=== PATIENT | female | born 1985 | race Caucasian/White ===

== ENCOUNTER 2018-08-13 00:46 | Emergency (ER) | payer MEDICAID, SELFPAY ==
[2018-08-13 00:48] VITALS: BP 149/74; PULSE 90; RESP 16; TEMP 36.5; O2SAT 98
[2018-08-13 01:12] LABS: Bilirubin Small (Negative); Blood Trace-intact (Negative); Clarity Sl Cloudy; Glucose Negative (Negative); Ketones 15 mg/dL (Negative); Leukocyte Esterase Negative (Negative); Nitrite Negative (Negative); Specific Gravity >= 1.030 (1.005-1.025)
[2018-08-13 01:19] LABS: Bacteria Few HPF (Negative); C & S Indicated? No; Casts Negative LPF (Negative); Crystals Few Amorphous HPF (Negative); Epithelial Cells Many HPF (Negative); Mucus Moderate (Negative)
--- NOTE | 2018-08-13 01:39 | W.ED.GENAD ---
Discharge Plan Disposition Patient Disposition: HOME Condition: Good Discharge Details Chief Complaint: Abd Prob Clinical Impression: Upper abdominal pain Reason For Visit: KRISTOFER Primary Care Provider: Syeda Sanches ED Provider: Edwin Villasenor [place] Meds and New Rx's Prescriptions: New sucralfate 1 gram Tablet 1 g PO AC & HS Qty: 40 RF: 0 omeprazole 20 mg Capsule,Delayed Release(Dr/Ec) 20 mg PO DAILY AM Qty: 30 RF: 0 promethazine 25 mg tablet 25 mg PO Q6H PRN (Reason: nausea and vomiting) Qty: 20 RF: 0 Continue bupropion HCl [Wellbutrin SR] 100 mg Tablet Extended Release 12 Hr 100 mg PO BID RF: 0 paroxetine HCl [Paxil] 40 mg Tablet 60 mg PO DAILY RF: 0 cariprazine [Vraylar] 1.5 mg Capsule 1.5 mg PO DAILY RF: 0 Discharge Instructions Instructions: Promethazine (By mouth), Omeprazole (By mouth), Abdominal Pain (ED) Additional Instructions: Your laboratory studies and CAT scan tonight were fine. We will go ahead and treat for possible acid related disease. Take medication as prescribed. Follow-up with primary care next week as planned. Return to emergency department for worsening pain, persistent vomiting, vomiting blood, chest pain, shortness of breath, fainting, persistent fevers. Referrals: Syeda Sanches [Primary Care Provider] - Medical Decision Making Patient examined with female nurse present. Vaginal and rectal exam performed with contract runner. There is no vaginal foreign body, discharge, odor present. Rectal exam reveals heme positive stool but no gross blood and no black stool. Abdomen is tender in the right mid to upper quadrant without guarding or rebound. Urine test is negative. IV established and laboratory studies obtained. Urinalysis sent. CT scan the abdomen pelvis ordered. Patient is hemodynamically stable at this point. We will give her LR and Phenergan and reevaluate once studies have returned. 4:30 - Patient's laboratory studies are essentially normal. Her hemoglobin is normal. Her CT scan is negative. There is no acute pathology noted. Given the patient's complaint of upper abdominal pain, nausea, black stool which is actually brown here and heme positive I am suspecting maybe ulcer disease. She does feel better after Phenergan. We will go ahead and start her on a PPI as well as Carafate. Will discharge home to follow-up with primary care as previously scheduled. Return to ED if worsening pain, vomiting blood, syncope, shortness of breath, chest pain, persistent fevers, other concerns. Medical Records Medical records reviewed: Yes I reviewed the patient's medical records. Lab Data Lab results reviewed: Yes I reviewed the patient's lab results. HPI General Mode of arrival: EMS. Date/Time Provider Initiated Documentation: 08/13/18 00:51. Limitations to Documentation: no limitations. Information obtained by: patient and old records reviewed. HPI Narrative: Patient presents to ED with complaints of abdominal pain and bloody stool. Patient reports a 4-day history of same. She has an appointment to see her doctor next week but pain was worse tonight. She is reporting that originally started as bloody stool and now is black diarrhea. She has nausea and dry heaves. She reports having a fever to 103 this morning. Pain in her abdomen is right-sided and radiates through to the back. She has no chest pain or shortness of breath. She has no urinary symptoms. She has no pelvic pain or vaginal pain but also states that she thinks there may be a tampon retained in her vagina from last week. She has had no discharge or foul smell. She presents by ambulance for evaluation. Related Data Home Medications Medication Instructions Recorded Confirmed bupropion HCl [Wellbutrin SR] 100 mg PO BID 08/13/18 08/13/18 cariprazine [Vraylar] 1.5 mg PO DAILY 08/13/18 08/13/18 omeprazole 20 mg PO DAILY AM #30 cap 08/13/18 paroxetine HCl [Paxil] 60 mg PO DAILY 08/13/18 08/13/18 promethazine 25 mg PO Q6H PRN #20 tab 08/13/18 sucralfate 1 g PO AC & HS #40 tab 08/13/18 Previous Rx's Medication Instructions Recorded omeprazole 20 mg PO DAILY AM #30 cap 08/13/18 promethazine 25 mg PO Q6H PRN #20 tab 08/13/18 sucralfate 1 g PO AC & HS #40 tab 08/13/18 Allergies Allergy/AdvReac Type Severity Reaction Status Date / Time oxycodone [From Percocet] Allergy Severe Anaphylaxsi Unverified 08/13/18 00:55 s General Stated Complaint: Abd Prob JULIÁN: 3 Review of Systems Constitutional Denies chills, Reports fever(s), Denies headache(s) and Reports poor appetite Eyes Denies change in vision and Denies eye discharge ENT Denies otalgia, Denies headache(s), Denies nasal congestion, Denies neck pain and Denies sinus pressure Cardiovascular Denies chest pain, Denies syncope, Denies edema, Denies lightheadedness, Denies palpitations and Denies dyspnea Respiratory Denies cough and Denies dyspnea Gastrointestinal Reports abdominal pain, Reports melena, Reports bloating, Denies coffee ground emesis, Reports diarrhea, Reports nausea, Reports vomiting and Denies hematemesis Genitourinary Denies abnormal vaginal bleeding, Denies hematuria, Denies pelvic pain, Denies flank pain and Denies urinary urgency Musculoskeletal Denies back pain, Denies myalgias, Denies arthralgias, Denies neck pain and Denies numbness Integumentary/Breasts Denies rash Neurologic Denies syncope, Denies headache(s), Denies focal weakness and Denies numbness Endocrine Denies palpitations PFS Medical History Depression (Chronic) PTSD (post-traumatic stress disorder) (Chronic) Social History Smoking/Tobacco Use Status: Current every day Surgical History History of delivery (Inactive) Tubal ligation status (Inactive) Exam Const General: cooperative, comfortable and no acute distress Nutritional Appearance: obese Orientation: alert and oriented x3 HENMT Head: normocephalic and atraumatic Mouth: moist mucous membranes Eyes Sclera: sclerae normal Resp Effort & Inspection: normal respiratory effort Auscultation: clear to auscultation bilaterally Cardio Rate: regular rate Rhythm: regular rhythm Heart Sounds: S1 normal and S2 normal GI Inspection: normal to inspection Palpation: soft, not firm, no guarding and tender in the RUQ; Abrams's sign negative Rectal Exam - female: visual inspection normal, normal sphincter tone and heme positive stool External Female Exam: external appearance normal Speculum Exam - Vagina: normal appearance of the vagina and no foreign bodies OB/External & Speculum: no foreign bodies Skin Lesions: lesion noted (scabs noted on arms) Rashes: no rashes Neuro General: alert, oriented x3, no focal motor deficits and CN's II-XI intact bilaterally Extrem General: normal to inspection and full ROM Psych Appearance: grossly normal Mental Status: mental status grossly normal Speech and Movement: speech and movement normal Affect: blunted Attitude: cooperative Thought Process: normal Course Vital Signs Temperature 97.7 F 08/13/18 00:48 Pulse 90 08/13/18 00:48 Respiratory Rate 16 08/13/18 00:48 Blood Pressure 149/74 H 08/13/18 00:48 Pulse Oximetry 98 08/13/18 00:48 Temperature 97.7 F 08/13/18 00:48 Temperature Source Skin 08/13/18 00:48 Pulse 90 08/13/18 00:48 Respiratory Rate 16 08/13/18 00:48 Respiratory Effort 08/13/18 00:53 Blood Pressure 149/74 H 08/13/18 00:48 Blood Pressure Position Sitting 08/13/18 00:48 Pulse Oximetry 98 08/13/18 00:48 Oxygen Delivery Method Room Air 08/13/18 00:48 Oxygen Flow Rate 0 08/13/18 00:48 Pain Level 7 08/13/18 00:59 Lab/Test Results Lab/Test Results: Laboratory Tests Range/Units 08/13/18 01:10 Urine Color (Yellow) Yellow Urine Clarity Sl cloudy Urine pH (5-8) 6.0 Ur Specific [place] (1.005-1.025) >= 1.030 H Urine Protein (Negative) mg/dL 30 H Urine Ketones (Negative) mg/dL 15 H Urine Blood (Negative) Trace-intact H Urine Nitrite (Negative) Negative Urine Bilirubin (Negative) Small H Urine Urobilinogen (Up TO 0.2) EU/dL 1.0 H Ur Leukocyte Esterase (Negative) Negative Urine RBC (0-2) 3-5 H Urine WBC (0-5) HPF 3-5 Ur Epithelial Cells (Negative) HPF Many Urine Crystals (Negative) HPF Few amorphous Urine Bacteria (Negative) HPF Few Urine Casts (Negative) LPF Negative Urine Mucus (Negative) Moderate Ur Culture Indicated? No Urine Glucose (Negative) mg/dL Negative POC- Test(urine) Negative
[2018-08-13] MEDS: Omnipaque 350 MG/ML 100 ML BTL IJ (01:52)
[2018-08-13 01:58] LABS: Abs Immature Grans 0.06 k/cumm (0.0-0.09); Absolute Basophil Count 0.03 k/cumm (0.0-0.2); Absolute Eosinophil Count 0.18 k/cumm (0.0-0.7); Absolute Lymphocyte Count 2.26 k/cumm (1.2-3.4); Absolute Monocyte Count 0.93 k/cumm (0.11-0.7); Absolute Neutrophil Count 4.29 k/cumm (1.2-6.7); Basophils % 0.4; Eosinophils % 2.3; HCT 38.2 % (36.0-46.0); HGB 13.1 g/dL (12.0-15.5); Immature Grans % 0.8; Lymphocytes % 29.2; Mean Corp. HGB Concentration 34.3 g/dL (32.0-36.0); Mean Corpuscular Hemoglobin 31.4 pg (27.0-33.0); Mean Corpuscular Volume 91.6 fL (80-95); Mean Platelet Volume 10.6 fL (8.0-11.0); Neutrophils % 55.3; Platelet Count 219 x1000/uL (130-400); RBC 4.17 m/cumm (4.00-5.20); RBC Distribution Width 14.9 % (11.7-14.6); White Blood Cell Count 7.75 k/cumm (4.4-10.8)
[2018-08-13] MEDS: Lactated Ringers 1,000 ML 1000 ML IV (01:58)
--- NOTE | 2018-08-13 02:00 | ED.GENADUL_ITS ---
Discharge Plan Disposition Patient Disposition: HOME Condition: Good Discharge Details Chief Complaint: Abd Prob Clinical Impression: Upper abdominal pain Reason For Visit: KRISTOFER Primary Care Provider: Syeda Sanches ED Provider: Edwin Villasenor [place] Meds and New Rx's Prescriptions: New sucralfate 1 gram Tablet 1 g PO AC & HS Qty: 40 RF: 0 omeprazole 20 mg Capsule,Delayed Release(Dr/Ec) 20 mg PO DAILY AM Qty: 30 RF: 0 promethazine 25 mg tablet 25 mg PO Q6H PRN (Reason: nausea and vomiting) Qty: 20 RF: 0 Continue bupropion HCl [Wellbutrin SR] 100 mg Tablet Extended Release 12 Hr 100 mg PO BID RF: 0 paroxetine HCl [Paxil] 40 mg Tablet 60 mg PO DAILY RF: 0 cariprazine [Vraylar] 1.5 mg Capsule 1.5 mg PO DAILY RF: 0 Discharge Instructions Instructions: Promethazine (By mouth), Omeprazole (By mouth), Abdominal Pain ( ED) Additional Instructions: Your laboratory studies and CAT scan tonight were fine. We will go ahead and treat for possible acid related disease. Take medication as prescribed. Follow -up with primary care next week as planned. Return to emergency department for worsening pain, persistent vomiting, vomiting blood, chest pain, shortness of breath, fainting, persistent fevers. Referrals: Syeda Sanches [Primary Care Provider] - Medical Decision Making Patient examined with female nurse present. Vaginal and rectal exam performed with director of marketing [employer]. There is no vaginal foreign body, discharge, odor present. Rectal exam reveals heme positive stool but no gross blood and no black stool. Abdomen is tender in the right mid to upper quadrant without guarding or rebound. Urine test is negative. IV established and laboratory studies obtained. Urinalysis sent. CT scan the abdomen pelvis ordered. Patient is hemodynamically stable at this point. We will give her LR and Phenergan and reevaluate once studies have returned. 4:30 - Patient's laboratory studies are essentially normal. Her hemoglobin is normal. Her CT scan is negative. There is no acute pathology noted. Given the patient's complaint of upper abdominal pain, nausea, black stool which is actually brown here and heme positive I am suspecting maybe ulcer disease. She does feel better after Phenergan. We will go ahead and start her on a PPI as well as Carafate. Will discharge home to follow-up with primary care as previously scheduled. Return to ED if worsening pain, vomiting blood, syncope, shortness of breath, chest pain, persistent fevers, other concerns. Medical Records Medical records reviewed: Yes I reviewed the patient's medical records. Lab Data Lab results reviewed: Yes I reviewed the patient's lab results. HPI General Mode of arrival: EMS . Date/Time Provider Initiated Documentation: 08/13/18 00:51 . Limitations to Documentation: no limitations . Information obtained by: patient and old records reviewed . HPI Narrative: Patient presents to ED with complaints of abdominal pain and bloody stool. Patient reports a 4-day history of same. She has an appointment to see her doctor next week but pain was worse tonight. She is reporting that originally started as bloody stool and now is black diarrhea. She has nausea and dry heaves. She reports having a fever to 103 this morning. Pain in her abdomen is right-sided and radiates through to the back. She has no chest pain or shortness of breath. She has no urinary symptoms. She has no pelvic pain or vaginal pain but also states that she thinks there may be a tampon retained in her vagina from last week. She has had no discharge or foul smell. She presents by ambulance for evaluation. Related Data Home Medications Medication Instructions Recorded Confirmed bupropion HCl [Wellbutrin SR] 100 mg PO BID 08/13/18 08/13/18 cariprazine [Vraylar] 1.5 mg PO DAILY 08/13/18 08/13/18 omeprazole 20 mg PO DAILY AM #30 cap 08/13/18 paroxetine HCl [Paxil] 60 mg PO DAILY 08/13/18 08/13/18 promethazine 25 mg PO Q6H PRN #20 tab 08/13/18 sucralfate 1 g PO AC & HS #40 tab 08/13/18 Previous Rx's Medication Instructions Recorded omeprazole 20 mg PO DAILY AM #30 cap 08/13/18 promethazine 25 mg PO Q6H PRN #20 tab 08/13/18 sucralfate 1 g PO AC & HS #40 tab 08/13/18 Allergies Allergy/AdvReac Type Severity Reaction Status Date / Time oxycodone [From Percocet] Allergy Severe Anaphylaxsi Unverified 08/13/18 00:55 s General Stated Complaint: Abd Prob JULIÁN: 3 Review of Systems Constitutional Denies chills, Reports fever(s), Denies headache(s) and Reports poor appetite Eyes Denies change in vision and Denies eye discharge ENT Denies otalgia, Denies headache(s), Denies nasal congestion, Denies neck pain and Denies sinus pressure Cardiovascular Denies chest pain, Denies syncope, Denies edema, Denies lightheadedness, Denies palpitations and Denies dyspnea Respiratory Denies cough and Denies dyspnea Gastrointestinal Reports abdominal pain, Reports melena, Reports bloating, Denies coffee ground emesis, Reports diarrhea, Reports nausea, Reports vomiting and Denies hematemesis Genitourinary Denies abnormal vaginal bleeding, Denies hematuria, Denies pelvic pain, Denies flank pain and Denies urinary urgency Musculoskeletal Denies back pain, Denies myalgias, Denies arthralgias, Denies neck pain and Denies numbness Integumentary/Breasts Denies rash Neurologic Denies syncope, Denies headache(s), Denies focal weakness and Denies numbness Endocrine Denies palpitations PFS Medical History Depression (Chronic) PTSD (post-traumatic stress disorder) (Chronic) Social History Smoking/Tobacco Use Status: Current every day Surgical History History of delivery (Inactive) Tubal ligation status (Inactive) Exam Const General: cooperative, comfortable and no acute distress Nutritional Appearance: obese Orientation: alert and oriented x3 HENMT Head: normocephalic and atraumatic Mouth: moist mucous membranes Eyes Sclera: sclerae normal Resp Effort & Inspection: normal respiratory effort Auscultation: clear to auscultation bilaterally Cardio Rate: regular rate Rhythm: regular rhythm Heart Sounds: S1 normal and S2 normal GI Inspection: normal to inspection Palpation: soft, not firm, no guarding and tender in the RUQ; Abrams's sign negative Rectal Exam - female: visual inspection normal, normal sphincter tone and heme positive stool External Female Exam: external appearance normal Speculum Exam - Vagina: normal appearance of the vagina and no foreign bodies OB/External & Speculum: no foreign bodies Skin Lesions: lesion noted (scabs noted on arms) Rashes: no rashes Neuro General: alert, oriented x3, no focal motor deficits and CN's II-XI intact bilaterally Extrem General: normal to inspection and full ROM Psych Appearance: grossly normal Mental Status: mental status grossly normal Speech and Movement: speech and movement normal Affect: blunted Attitude: cooperative Thought Process: normal Course Vital Signs Temperature 97.7 F 08/13/18 00:48 Pulse 90 08/13/18 00:48 Respiratory Rate 16 08/13/18 00:48 Blood Pressure 149/74 H 08/13/18 00:48 Pulse Oximetry 98 08/13/18 00:48 Temperature 97.7 F 08/13/18 00:48 Temperature Source Skin 08/13/18 00:48 Pulse 90 08/13/18 00:48 Respiratory Rate 16 08/13/18 00:48 Respiratory Effort 08/13/18 00:53 Blood Pressure 149/74 H 08/13/18 00:48 Blood Pressure Position Sitting 08/13/18 00:48 Pulse Oximetry 98 08/13/18 00:48 Oxygen Delivery Method Room Air 08/13/18 00:48 Oxygen Flow Rate 0 08/13/18 00:48 Pain Level 7 08/13/18 00:59 Lab/Test Results Lab/Test Results: Laboratory Tests Range/Units 08/13/18 01:10 Urine Color (Yellow) Yellow Urine Clarity Sl cloudy Urine pH (5-8) 6.0 Ur Specific [place] (1.005-1.025) >= 1.030 H Urine Protein (Negative) mg/dL 30 H Urine Ketones (Negative) mg/dL 15 H Urine Blood (Negative) Trace-intact H Urine Nitrite (Negative) Negative Urine Bilirubin (Negative) Small H Urine Urobilinogen (Up TO 0.2) EU/dL 1.0 H Ur Leukocyte Esterase (Negative) Negative Urine RBC (0-2) 3-5 H Urine WBC (0-5) HPF 3-5 Ur Epithelial Cells (Negative) HPF Many Urine Crystals (Negative) HPF Few amorphous Urine Bacteria (Negative) HPF Few Urine Casts (Negative) LPF Negative Urine Mucus (Negative) Moderate Ur Culture Indicated? No Urine Glucose (Negative) mg/dL Negative POC- Test(urine) Negative
[2018-08-13 02:09] LABS: ALT 67 U/L (12-78); AST 32 U/L (15-37); Albumin 3.5 g/dL (3.4-5.0); Alkaline Phosphatase 95 U/L (46-116); Anion Gap 10.5 mmol/L (3-11); BUN 6 mg/dL (7-18); Bilirubin, Total 0.2 mg/dL (0.2-1.0); CO2 26.5 mmol/L (21.0-32.0); CREATININE 0.74 mg/dL (0.55-1.02); Calcium 8.3 mg/dL (8.5-10.1); Chloride 104 mmol/L (98-107); Glucose 142 mg/dL (70-100); Lipase 107 U/L (73-393); Potassium 3.6 mmol/L (3.5-5.1); Sodium 141 mmol/L (136-145); Total Protein 7.4 g/dL (6.4-8.2)
[2018-08-13] MEDS: Omnipaque 350 MG/ML 50 ML BTL IJ (02:45)
--- NOTE | 2018-08-13 02:45 | DI.CT_ITS ---
SYMPTOM/DIAGNOSIS: RIGHT SIDED ABD PAIN WITH BLACK STOOL ABDOMINAL AND PELVIC CT: 08/13 CT examination of the abdomen and pelvis was performed with a bolus infusion of 125 cc Omnipaque 350 Images obtained through the lung bases are unremarkable. There appears to be mild hepatic steatosis. No focal hepatic or splenic abnormality seen. Gallbladder and bile ducts are CT normal. Pancreas is unremarkable in appearance. Adrenals and kidneys appear normal. Abdominal aorta is of normal diameter and no major vascular abnormality seen. No significant abdominal wall hernia seen. No evidence of appendicitis or diverticulitis. No free fluid identified in the pelvis. No abdominal or pelvic adenopathy seen. Presumed 2 cm in diameter right ovarian cyst or dominant follicle noted. CONCLUSION: No evidence of acute intra-abdominal process.
--- NOTE | 2018-08-13 04:06 | DI.VRAD_ITS ---
EXAM: CT Abdomen and Pelvis With Intravenous Contrast CLINICAL HISTORY: 32 years old, female; Pain and signs and symptoms; Vomiting; Abdominal pain; Localized; Right lower quadrant (rlq); Prior surgery; Surgery date: 6+ months; Surgery type: 3 c sections; Patient HX: Rlq and r flank pain, vomiting, diarrhea for 4 or 5 days TECHNIQUE: Axial computed tomography images of the abdomen and pelvis with intravenous contrast. All CT scans at this facility use at least one of these dose optimization techniques: automated exposure control; mA and/or kV adjustment per patient size (includes targeted exams where dose is matched to clinical indication); or iterative reconstruction. Coronal and sagittal reformatted images were created and reviewed. CONTRAST: 125 mL of Omnipaque 350 administered intravenously. COMPARISON: CT ABD PELVIS WITH CONTRAST 01/04/2018 11:55 PM FINDINGS: Lung bases: Unremarkable. No mass. No consolidation. ABDOMEN: Liver: Hepatic steatosis. Gallbladder and bile ducts: Unremarkable. No calcified stones. No ductal dilation. Pancreas: Unremarkable. No mass. No ductal dilation. Spleen: Unremarkable. No splenomegaly. Adrenals: Unremarkable. No mass. Kidneys and ureters: Unremarkable. No solid mass. No hydronephrosis. Stomach and bowel: Unremarkable. No obstruction. No mucosal thickening. PELVIS: Appendix: No findings to suggest acute appendicitis. Bladder: Unremarkable. No mass. Reproductive: Unremarkable as visualized. ABDOMEN and PELVIS: Intraperitoneal space: Unremarkable. No free air. No significant fluid collection. Bones/joints: No acute fracture. No dislocation. Soft tissues: Unremarkable. Vasculature: Unremarkable. No abdominal aortic aneurysm. Lymph nodes: Unremarkable. No enlarged lymph nodes. IMPRESSION: No acute findings. Dictated and Authenticated by: Roc Anthony MD. Ordering:PADMINI JAIMES MD
[2018-08-13 04:51] VITALS: BP 131/66; PULSE 81; RESP 16; TEMP 36.6; O2SAT 97
== END 2018-08-13 04:46 | disposition home or self-care (01) ==
LOC: ER 04:50
PROVIDERS: Emergency Provider Emergency Medicine; PCP Nurse Practitioner Family
DX: R10.11 Right upper quadrant pain (principal); R19.5 Other fecal abnormalities
CPT/HCPCS: 80053; 81025; 83690; 96365; 96368; 99285; 74177; 81003; 81015; 85025; J3490; Q9967

== ENCOUNTER 2018-08-17 19:57 | Outpatient (REF) | payer MEDICAID, SELFPAY ==
[2018-08-17 20:33] LABS: Anion Gap 11.4 mmol/L (3-11); BUN 9 mg/dL (7-18); CO2 23.6 mmol/L (21.0-32.0); CREATININE 0.65 mg/dL (0.55-1.02); Chloride 105 mmol/L (98-107); Glucose 116 mg/dL (70-100); Potassium 4.3 mmol/L (3.5-5.1); Sodium 140 mmol/L (136-145)
== END 2018-08-17 20:17 ==
LOC: NCHCN 19:57
PROVIDERS: PCP Nurse Practitioner Family; Visit Provider Nurse Practitioner Family
DX: R11.2 Nausea with vomiting, unspecified (principal); R19.7 Diarrhea, unspecified
CPT/HCPCS: 80048

== ENCOUNTER 2018-08-19 13:51 | Outpatient (REF) | payer MEDICAID, SELFPAY ==
[2018-08-20 11:37] LABS: Campylobacter PCR SEE COMMENTS; Salmonella PCR SEE COMMENTS; Shiga Toxin PCR SEE COMMENTS; Shigella/Enteroinvasive Ecoli SEE COMMENTS
== END 2018-08-19 14:11 ==
LOC: NCHCN 13:51
PROVIDERS: PCP Nurse Practitioner Family; Visit Provider Nurse Practitioner Family
DX: R19.7 Diarrhea, unspecified (principal)
CPT/HCPCS: 87329; 87505; 82272; 83630; 87177; 87324

== ENCOUNTER 2018-08-26 16:34 | Emergency (ER) | payer MEDICAID, SELFPAY ==
[2018-08-26 16:43] VITALS: BP 136/92; PULSE 84; RESP 18; TEMP 36.6; O2SAT 97
--- NOTE | 2018-08-26 16:51 | DI.RAD_ITS ---
SYMPTOM/DIAGNOSIS: PAIN, S/P FALL LEFT ANKLE: Three views were obtained. No fracture is seen.
--- NOTE | 2018-08-26 16:58 | ED.GENADUL_ITS ---
Discharge Plan Disposition Patient Disposition: HOME Condition: Good Discharge Details Chief Complaint: Orthopedic Clinical Impression: Left ankle sprain Primary Care Provider: Syeda Sanches ED Provider: Roc Chance Home Meds and New Rx's Prescriptions: Continue bupropion HCl [Wellbutrin SR] 100 mg Tablet Extended Release 12 Hr 100 mg PO BID RF: 0 paroxetine HCl [Paxil] 40 mg Tablet 60 mg PO DAILY RF: 0 cariprazine [Vraylar] 1.5 mg Capsule 1.5 mg PO DAILY RF: 0 sucralfate 1 gram Tablet 1 g PO AC & HS Qty: 40 RF: 0 omeprazole 20 mg Capsule,Delayed Release(Dr/Ec) 20 mg PO DAILY AM Qty: 30 RF: 0 Discharge Instructions Instructions: Ankle Sprain (ED) Discharge Data Discharge Physician: Roc Chance Medical Decision Making Pt was playing soccer just prior to arrival and inverted ankle, no head trauma or loc. Based on exam is either sprain or fx, will xray. No pain over the foot to suggest lisfranc injury xray negative, will treat as sprain. Advised f/u with pcp and return precautions given Differential Diagnosis sprain, fx Imaging Data Radiologic Study: Attestation: I personally reviewed and interpreted this imaging study as follows: Imaging: X-Ray My impression: No acute finding Radiologist's impression: no acute findings HPI General Mode of arrival: ambulatory . Date/Time Provider Initiated Documentation: 08/26/18 16:43 . Limitations to Documentation: no limitations . Information obtained by: patient . History of Present Illness 32 year old F presents to the emergency department with the chief complaint of left ankle pain, described as moderate, with intensity rated at 6. Patient reports no radiation. Patient started experiencing this hour(s) (1) and it has been constant. Rest improves symptom(s), Movement worsens symptoms . Patient notes no other symptoms.. Patient did receive the following treatments prior to arrival, none Related Data Home Medications Medication Instructions Recorded Confirmed bupropion HCl [Wellbutrin SR] 100 mg PO BID 08/13/18 08/26/18 cariprazine [Vraylar] 1.5 mg PO DAILY 08/13/18 08/26/18 omeprazole 20 mg PO DAILY AM #30 cap 08/13/18 08/26/18 paroxetine HCl [Paxil] 60 mg PO DAILY 08/13/18 08/26/18 sucralfate 1 g PO AC & HS #40 tab 08/13/18 08/26/18 Previous Rx's Medication Instructions Recorded omeprazole 20 mg PO DAILY AM #30 cap 08/13/18 sucralfate 1 g PO AC & HS #40 tab 08/13/18 Allergies Allergy/AdvReac Type Severity Reaction Status Date / Time oxycodone [From Percocet] Allergy Severe Anaphylaxsi Unverified 08/26/18 16:48 s General Stated Complaint: Orthopedic JULIÁN: 4 Review of Systems Review of Systems All systems reviewed & are unremarkable except as noted in HPI and below Constitutional Denies chills, Denies fever(s) and Denies weakness Eyes Denies loss of vision ENT Denies change in voice Cardiovascular Denies chest pain and Denies dyspnea Respiratory Denies dyspnea Gastrointestinal Denies abdominal pain, Denies nausea and Denies vomiting Genitourinary Denies dysuria Musculoskeletal Denies joint swelling Integumentary/Breasts Denies rash Neurologic Denies loss of vision and Denies weakness Psychiatric Denies depression Endocrine Denies cold intolerance and Denies heat intolerance Allergic/Immunologic Reports urticaria PFSH Medical History Depression (Chronic) PTSD (post-traumatic stress disorder) (Chronic) Social History Smoking/Tobacco Use Status: Current every day Surgical History History of delivery (Inactive) Tubal ligation status (Inactive) Exam Const General: no acute distress Orientation: alert [facility] Head: normal to inspection Ears: external ears normal General nose exam: external nose normal Mouth: moist mucous membranes Eyes General: appearance normal, both eyes and all related structures Neck Neck: normal visual inspection Resp Effort & Inspection: normal respiratory effort and able to speak in complete sentences Cardio Rate: regular rate Skin General skin exam: no rashes or lesions noted Neuro General: alert and oriented x3 Extrem General: full ROM, normal capillary refill and other (lateral left ankle swelling and pain, limited rom due to pain, full rom of the left knee and hip without pain) Psych Mental Status: mental status grossly normal Course Vital Signs Temperature 36.6 C 08/26/18 16:43 Pulse 84 08/26/18 16:43 Respiratory Rate 18 08/26/18 16:43 Blood Pressure 136/92 H 08/26/18 16:43 Pulse Oximetry 97 08/26/18 16:43 Temperature 36.6 C 08/26/18 16:43 Temperature Source Temporal Artery Scan 08/26/18 16:43 Pulse 84 08/26/18 16:43 Respiratory Rate 18 08/26/18 16:43 Respiratory Effort Non-Labored 08/26/18 16:46 Blood Pressure 136/92 H 08/26/18 16:43 Blood Pressure Position Supine 08/26/18 16:43 Pulse Oximetry 97 08/26/18 16:43 Oxygen Delivery Method Room Air 08/26/18 16:43 Oxygen Flow Rate 0 08/26/18 16:43 Pain Level 10 08/26/18 16:50
[2018-08-26] MEDS: Ibuprofen 600 MG TAB PO (17:04)
--- NOTE | 2018-08-26 17:22 | DI.VRAD_ITS ---
EXAM: XR Left Ankle Complete, 3 or More Views CLINICAL HISTORY: 32 years old, female; Pain; Ankle; Left; Patient HX: Pain S/P fall TECHNIQUE: Frontal, lateral and oblique views of the left ankle. COMPARISON: CR LEFT ANKLE COMPLETE 11/07/2017 4:14 PM FINDINGS: The bony structures are in anatomic alignment. No fracture is present. No radiopaque foreign body is identified. The joint spaces are well maintained. IMPRESSION: No evidence of acute bony abnormality. Dictated and Authenticated by: Moris Ramirez MD. Ordering:RITESH SCHWARTZ MD
== END 2018-08-26 18:05 | disposition home or self-care (01) ==
PROVIDERS: Emergency Provider Emergency Medicine; PCP Nurse Practitioner Family
DX: S93.402A Sprain of unspecified ligament of left ankle, initial encounter (principal); X50.9XXA Other and unspecified overexertion or strenuous movements or postures, initial encounter; Y93.66 Activity, soccer
CPT/HCPCS: 29515; 99283; 73610; E0114; L1902

== ENCOUNTER 2018-09-15 16:43 | Emergency (ER) | payer MEDICAID, SELFPAY ==
[2018-09-15] VITALS (34 sets, daily range): BP systolic 107–145; BP diastolic 40–123; PULSE 69–87; RESP 10–25; TEMP 37.2; O2SAT 89–99
[2018-09-15] MEDS: Ondansetron O.D.T. 4 MG TABEF (17:09)
[2018-09-15 17:58] LABS: Abs Immature Grans 0.03 k/cumm (0.0-0.09); Absolute Basophil Count 0.04 k/cumm (0.0-0.2); Absolute Eosinophil Count 0.16 k/cumm (0.0-0.7); Absolute Lymphocyte Count 2.72 k/cumm (1.2-3.4); Absolute Monocyte Count 0.92 k/cumm (0.11-0.7); Absolute Neutrophil Count 5.62 k/cumm (1.2-6.7); Basophils % 0.4; Eosinophils % 1.7; HCT 37.4 % (36.0-46.0); HGB 13.2 g/dL (12.0-15.5); Immature Grans % 0.3; Lymphocytes % 28.7; Mean Corp. HGB Concentration 35.3 g/dL (32.0-36.0); Mean Corpuscular Hemoglobin 31.5 pg (27.0-33.0); Mean Corpuscular Volume 89.3 fL (80-95); Mean Platelet Volume 10.1 fL (8.0-11.0); Monocytes % 9.7; Neutrophils % 59.2; Platelet Count 228 x1000/uL (130-400); RBC 4.19 m/cumm (4.00-5.20); RBC Distribution Width 13.7 % (11.7-14.6); White Blood Cell Count 9.49 k/cumm (4.4-10.8)
--- NOTE | 2018-09-15 18:02 | DI.RAD_ITS ---
SYMPTOM/DIAGNOSIS: CHEST PAIN PORTABLE AP CHEST: Comparison is made with 01/21/18. The heart is normal in size. The lungs are clear. The mediastinal structures and pleura appear intact. CONCLUSION: Normal chest.
[2018-09-15 18:14] LABS: ALT 71 U/L (12-78); AST 45 U/L (15-37); Albumin 3.7 g/dL (3.4-5.0); Alkaline Phosphatase 88 U/L (46-116); Anion Gap 7.6 mmol/L (3-11); BUN 8 mg/dL (7-18); Bilirubin, Total 0.3 mg/dL (0.2-1.0); CO2 27.4 mmol/L (21.0-32.0); CREATININE 0.71 mg/dL (0.55-1.02); Calcium 8.5 mg/dL (8.5-10.1); Chloride 102 mmol/L (98-107); Glucose 90 mg/dL (70-100); Potassium 3.7 mmol/L (3.5-5.1); Sodium 137 mmol/L (136-145); Total Protein 7.4 g/dL (6.4-8.2); Troponin I < 0.02 ng/mL (0.00-0.06)
--- NOTE | 2018-09-15 18:15 | DI.VRAD_ITS ---
EXAM: XR Chest, 1 View EXAM DATE/TIME: 09/15/2018 5:27 PM CLINICAL HISTORY: 32 years old, female; Pain; Chest pain; Other: Sternal; Patient HX: Mid sternal chest pain, since today. With difficulty breathing. TECHNIQUE: XR of the chest, 1 view. COMPARISON: CR CHEST 2 VIEWS PA,LAT 01/21/2018 5:48 PM FINDINGS: The cardiomediastinal silhouette and pulmonary vasculature are within normal limits. The lungs are clear. No pleural effusion or pneumothorax is identified. IMPRESSION: No acute process. Dictated and Authenticated by: Mario Powell MD. Ordering:EUSEBIA JOSE MD
[2018-09-15 18:42] LABS: Prothrombin Time 10.1 sec (9.3-10.8)
[2018-09-15] MEDS: HYDROmorphone 2 MG/ML VIAL 1 MG IVP (18:59)
[2018-09-15] MEDS: Normal Saline Flush 10 ML SYR IVP ×2 (19:00→20:14)
[2018-09-15 19:04] LABS: D-Dimer 342 ng/mlFEU (<500)
--- NOTE | 2018-09-15 19:15 | DI.CT_ITS ---
SYMPTOM/DIAGNOSIS: CHEST PAIN PE CHEST CT: CT angiography was performed with multi slice acquisition and multi planar and 3D reconstruction. CT scan of the chest was performed according to the pulmonary embolus protocol. Comparison is made with 01/22/18. There is slight patient motion artifact present. There is no evidence of a pulmonary embolus. The thoracic aorta is of normal caliber. No aneurysm or dissection. Heart size is within normal limits. No significant pericardial effusion. No evidence of right ventricular dysfunction is present. There is no significant mediastinal or hilar adenopathy. There is stable soft tissue in the anterior mediastinum, likely reflecting residual thymus. No pleural effusion or pneumothorax is identified. There are linear opacities in the right middle lobe, left lingula and lower lobes. These findings may reflect atelectasis or scarring. No focal consolidating infiltrates are seen. The tracheobronchial tree is unremarkable. The upper abdominal images show diffuse decreased attenuation of the liver consistent with fatty infiltration. Degenerative changes are seen in the spine. IMPRESSION: No evidence of a pulmonary embolism, thoracic aortic dissection or aneurysm. Fatty infiltration of the liver.
[2018-09-15] MEDS: Omnipaque 350 MG/ML 100 ML BTL IJ (19:18)
--- NOTE | 2018-09-15 19:46 | ED.GENADUL_ITS ---
Discharge Plan Disposition Patient Disposition: HOME Condition: Good Discharge Details Chief Complaint: Chest Pain Clinical Impression: Chest pain Primary Care Provider: Syeda Sanches ED Provider: Edwin Villasenor [place] Meds and New Rx's Prescriptions: New ibuprofen 600 mg tablet 600 mg PO TID Qty: 15 RF: 0 ondansetron 4 mg tablet,disintegrating 4 mg PO QID PRN (Reason: nausea and vomiting) Qty: 7 RF: 0 Continue bupropion HCl [Wellbutrin SR] 100 mg Tablet Extended Release 12 Hr 100 mg PO BID RF: 0 paroxetine HCl [Paxil] 40 mg Tablet 60 mg PO DAILY RF: 0 cariprazine [Vraylar] 1.5 mg Capsule 3 mg PO DAILY RF: 0 No Action acetaminophen [Mapap Extra Strength] 500 MG tablet 1,000 mg PO Q6H 5 Days Qty: 60 RF: 0 ibuprofen [Motrin IB] 200 MG tablet 600 mg PO Q6H 5 Days Qty: 60 RF: 0 Discharge Instructions Instructions: Chest Pain (ED) Additional Instructions: Workup for chest pain tonight was negative. Your EKG and cardiac enzymes are normal. Your chest x-ray and chest CT scan are negative for pathology. We think your chest pain is either chest wall pain or pleurisy. Either is treated with nonsteroidals which we will start you on. We will give you ondansetron for nausea/vomiting if needed. Follow-up with primary care tomorrow as planned. Return to ED if high fever, worsening/new chest pain, increasing shortness of breath. Referrals: Syeda Sanches [Primary Care Provider] - Discharge Data Discharge Date/Time-TO BE ENTERED AT DEPARTURE: 09/15/18 21:16 Medical Decision Making <Lan Alaniz MD - Last Filed: 09/24/18 01:21> 19:00 -- 32yo f with history of anixety and depression here with chest pain that started fairly suddenly about an hour prior to arrival. Hypertensive on arrival. Lungs clear to auscultation bilaterally. Saturating well in no respiratory distress. ECG reviewed and interpreted by me: Normal sinus rhythm 93 bpm, normal axis, no STEMI, nondiagnostic. Portable chest x-ray reviewed and interpreted by radiology: The cardia mediastinal silhouette and pulmonary vasculature are within normal limits. The lungs are clear. No pleural effusion or pneumothorax is identified. Patient had difficult IV access and multiple failed attempts by nursing and myself with ultrasound guidance. IV was eventually established in her right forearm. Patient does have tenderness along her sternum and parasternally that reproduces her pain. Consider muscular skeletal etiology including costochondritis. Labs reviewed and nondiagnostic. Negative troponin. Negative d-dimer. Patient continues to have pain despite Dilaudid 1 mg IV. Plan is to CT chest to rule out pulmonary embolism, pneumothorax not apparent on chest x-ray or other significant pathology. Patient has remained hemodynamically stable here in the emergency department. Blood pressure improved 20:00 -- CT chest interpreted by radiology: No pulmonary embolism identified. Aorta is normal with no aortic aneurysm and no aortic dissection. Minimal linear atelectasis and/or scar in the right middle lobe, lingula and left lower lobe. No pulmonary consolidation. Diffuse fatty infiltration of the liver. Patient reassessed and complaining of some more nausea. I will give a dose of Zofran IV Care signed out to Dr. Villasenor. Plan to follow-up on delta trop. Reassess pt. HPI <Lan Alaniz MD - Last Filed: 09/24/18 01:21> General Mode of arrival: EMS . Date/Time Provider Initiated Documentation: 09/15/18 16:44 . Limitations to Documentation: no limitations . Information obtained by: patient and EMS . HPI Narrative: 32-year-old female with history of depression presents with chief complaint of chest pain. Patient notes that chest pain started about 1 hour prior to arrival. Pain is moderate to severe currently rated 7/10. Pain is localized to right upper chest and neck. Pain started in her left upper chest and has migrated. Pain is persistent. Pain is worse with deep inspiration. No associated leg swelling or calf pain. No recent immobility or surgery. She does note that she has had recent pneumonia. Related Data Home Medications Medication Instructions Recorded Confirmed bupropion HCl [Wellbutrin SR] 100 mg PO BID 08/13/18 09/21/18 cariprazine [Vraylar] 3 mg PO DAILY 08/13/18 09/21/18 paroxetine HCl [Paxil] 60 mg PO DAILY 08/13/18 09/21/18 ibuprofen 600 mg PO TID #15 tab 09/15/18 09/21/18 ondansetron 4 mg PO QID PRN #7 tab 09/15/18 09/21/18 acetaminophen [Mapap Extra 1,000 mg PO Q6H 5 Days #60 tab 09/21/18 Strength] ibuprofen [Motrin Ib] 600 mg PO Q6H 5 Days #60 tab 09/21/18 Previous Rx's Medication Instructions Recorded ibuprofen 600 mg PO TID #15 tab 09/15/18 ondansetron 4 mg PO QID PRN #7 tab 09/15/18 acetaminophen [Mapap Extra 1,000 mg PO Q6H 5 Days #60 tab 09/21/18 Strength] ibuprofen [Motrin Ib] 600 mg PO Q6H 5 Days #60 tab 09/21/18 Allergies Allergy/AdvReac Type Severity Reaction Status Date / Time oxycodone [From Percocet] Allergy Severe Anaphylaxsi Unverified 09/21/18 05:14 s General Stated Complaint: Chest Pain JULIÁN: 3 Review of Systems <Lan Alaniz MD - Last Filed: 09/24/18 01:21> Review of Systems All systems reviewed & are unremarkable except as noted in HPI and below Constitutional Denies fever(s) Cardiovascular Reports as per HPI, Reports chest pain, Denies syncope, Denies pedal edema and Denies dyspnea Respiratory Denies dyspnea Gastrointestinal Denies abdominal pain Neurologic Denies syncope Exam <Lan Alaniz MD - Last Filed: 09/24/18 01:21> Const General: cooperative and anxious Orientation: alert [facility] Head: normocephalic Mouth: moist mucous membranes Eyes Conjunctivae: normal conjunctivae Sclera: normal sclerae Neck Neck: trachea midline and supple Chest Chest: tenderness sternum (peristernal) Resp Auscultation: clear to auscultation bilaterally, no rales, no rhonchi and no wheezes Cardio Jugular venous pressure: no JVD Rate: regular rate and not tachycardic Rhythm: regular rhythm Heart Sounds: no gallops, no murmurs and no rubs GI Palpation: soft, not firm, no guarding, no masses, not rigid and nontender Skin General skin exam: no rashes or lesions noted Neuro General: alert, awake, oriented x3 and tone normal Extrem General: no edema Psych Appearance: grossly normal Mental Status: mental status grossly normal Affect: anxious affect Course <Lan Alaniz MD - Last Filed: 09/24/18 01:21> Vital Signs Temperature 37.2 C 09/15/18 16:50 Temperature 37.2 C 09/15/18 16:50 Temperature Source Skin 09/15/18 16:50 Respiratory Effort 09/15/18 17:17 Respiratory Depth Shallow 09/15/18 17:17 Respiratory Pattern Normal 09/15/18 17:17 Pain Level 8 09/15/18 16:50 Sign Out <Lan Alaniz MD - Last Filed: 09/24/18 01:21> Sign Out Data: Sign Out Comment: reassess patient after zofran. follow-up repeat ecg and delta trop. Last updated by Lan Alaniz MD at 09/15/18 20:16 Post-Handoff Eval: Patient signed out to me pending repeat EKG and troponin. Her work up for chest pain had been negative. Her repeat EKG remains normal. Her second troponin is negative. Her pain is pleuritic/chest pain type pain and we will go ahead and treat with NSAIDs. She has follow up with PCP tomorrow already scheduled. Return to ED for high fever, new/worse pain, increase trouble breathing, other concerns.
--- NOTE | 2018-09-15 19:46 | DI.VRAD_ITS ---
EXAM: CT Angiography Chest With Intravenous Contrast EXAM DATE/TIME: 09/15/2018 6:51 PM CLINICAL HISTORY: 32 years old, female; Pain; Chest pain; Other: Mid sternal chest pain; Patient HX: Mid sternal chest pain since this morning, difficulty breathing. No recent surgeries. ; Additional info: Artifact due to patient body habitus. TECHNIQUE: Axial computed tomographic angiography images of the chest with intravenous contrast using CT angiography protocol. All CT scans at this facility use at least one of these dose optimization techniques: automated exposure control; mA and/or kV adjustment per patient size (includes targeted exams where dose is matched to clinical indication); or iterative reconstruction. Coronal and sagittal reformatted images were created and reviewed. MIP reconstructed images were created and reviewed. CONTRAST: 100 ml of omnipaque 350 administered intravenously. COMPARISON: CT CHEST FOR PULMONARY EMBOLUS 01/22/2018 10:30 AM FINDINGS: Limitations: This examination is slightly suboptimal secondary to cardiac motion induced artifact. Pulmonary arteries: No pulmonary embolism identified. Aorta: Normal. No aortic aneurysm. No aortic dissection. Lungs: Minimal linear atelectasis and/or scar in the right middle lobe, lingula and left lower lobe. No pulmonary consolidation. Pleural space: Normal. No pneumothorax. No pleural effusion. Heart: Normal. No cardiomegaly. No pericardial effusion. No evidence of right heart strain. Mediastinum: Soft tissue density within the anterior mediastinum, likely residual thymus. Bones/joints: Unremarkable. No acute fracture. Soft tissues: Unremarkable. Lymph nodes: Unremarkable. No enlarged lymph nodes. Liver: Diffuse fatty infiltration of the liver. IMPRESSION: 1. No pulmonary embolism or other acute abnormality identified. 2. Diffuse fatty infiltration of the liver. Dictated and Authenticated by: Mario Powell MD. Ordering:EUSEBIA JOSE MD
[2018-09-15] MEDS: Ketorolac 15 MG/ML VIAL IVP (20:12)
[2018-09-15] MEDS: Ondansetron 4 MG/2 ML VIAL IVP (20:13)
[2018-09-15 20:51] LABS: Troponin I < 0.02 ng/mL (0.00-0.06)
== END 2018-09-15 21:16 | disposition home or self-care (01) ==
PROVIDERS: Student in an Organized Health Care Education/Training Program; Emergency Provider Emergency Medicine; PCP Nurse Practitioner Family
DX: R07.81 Pleurodynia (principal); F41.8 Other specified anxiety disorders; I10 Essential (primary) hypertension
CPT/HCPCS: 36415; 71275; 80053; 93005; 96374; 96375; 99285; 71045; 83735; 84484; 85025; 85379; 85610; 93010; J1885; J2405; J3490

== ENCOUNTER 2018-09-21 05:08 | Emergency (ER) | payer MEDICAID, SELFPAY ==
[2018-09-21] VITALS (19 sets, daily range): BP systolic 119–166; BP diastolic 74–92; PULSE 80–95; RESP 16–28; TEMP 36.9–37; O2SAT 94–99
--- NOTE | 2018-09-21 05:53 | ED.GENADUL_ITS ---
Discharge Plan Disposition Patient Disposition: HOME Condition: Good Discharge Details Chief Complaint: SOB Clinical Impression: Chest pain Reason For Visit: KRISTOFER Primary Care Provider: Syeda Sanches ED Provider: Tray Jimenez Home Meds and New Rx's Prescriptions: New acetaminophen [Mapap Extra Strength] 500 MG tablet 1,000 mg PO Q6H 5 Days Qty: 60 RF: 0 ibuprofen [Motrin IB] 200 MG tablet 600 mg PO Q6H 5 Days Qty: 60 RF: 0 No Action bupropion HCl [Wellbutrin SR] 100 mg Tablet Extended Release 12 Hr 100 mg PO BID RF: 0 paroxetine HCl [Paxil] 40 mg Tablet 60 mg PO DAILY RF: 0 cariprazine [Vraylar] 1.5 mg Capsule 3 mg PO DAILY RF: 0 ibuprofen 600 mg tablet 600 mg PO TID Qty: 15 RF: 0 ondansetron 4 mg tablet,disintegrating 4 mg PO QID PRN (Reason: nausea and vomiting) Qty: 7 RF: 0 Discharge Instructions Instructions: Chest Pain (ED) Additional Instructions: Please take the Tylenol and Motrin as directed. If you notice any worsening of your symptoms, or any new symptoms such as vomiting, diarrhea, fever, chills, shortness of breath, worsening chest pain, numbness, weakness, or fainting , please return immediately to the emergency department for reevaluation. Please follow up with your primary care provider as soon as possible for reassessment and reevaluation. As always, it was a pleasure participating in your medical care today. Referrals: Syeda Sanches [Primary Care Provider] - Discharge Data Discharge Date/Time-TO BE ENTERED AT DEPARTURE: 09/21/18 12:02 Medical Decision Making <Edwin Villasenor MD - Last Filed: 09/21/18 21:40> Patient returns presenting with pleuritic type chest pain. Seen last week with negative workup including CTA of the chest. Her PERC score is 0. Given negative PERC and negative workup for PE last week, do not feel it necessary to pursue again at this point. Is reproducible and seems to be musculoskeletal in nature. Her EKG is normal. She has had pain since 1 AM. Doubt this is cardiac but will do troponin and repeat troponin but assuming an initial troponin negative her HEART score is 1 and she can be discharged after the repeat troponin. She is ordered for Toradol and Ativan IV. Labs are unremarkable. First troponin is negative after 4+ hours of pain. Heart rate and pulse ox have remained normal. Chest x-ray is negative per my review and radiology preliminary read. Patient continues to complain of severe pleuritic pain. She states the Toradol did not help. She is given oral Tylenol. On reevaluation continues to complain of severe pain that is unchanged. It is reproducible and pleuritic and is likely chest wall pain. Still would like to do the second troponin and EKG. Still did not feel repeat CTA is warranted. We will give half milligram of Dilaudid. Patient to be discussed with and signed over to oncoming physician Dr. Jimenez. Medical Records Medical records reviewed: Yes I reviewed the patient's medical records. Lab Data Lab results reviewed: Yes I reviewed the patient's lab results. ECG Data Attestation: I personally reviewed and interpreted this ECG (s) as follows: Interpretation: Sinus rhythm at a rate of 97. Normal axis and intervals. Normal ST segments. <Tray Jimenez DO - Last Filed: 09/21/18 11:47> This was signed out to be my my colleague Dr. Villasenor. She presented for chest pain. She had a notable workup recently here in the emergency department with a negative CT angiogram last week, she presented today for chest pain. Initial EKG and troponin were negative, repeat troponin at 4 hours is also negative with a repeat EKG which was benign. Chest x-ray was negative, laboratory workup benign. This time the patient's pain is controlled. Vital signs are normal, mild hypertension, but no evidence of tachycardia tachypnea, or hypoxemia. With a negative laboratory workup, negative serial troponins, negative EKGs, being PERC and Wells negative, as well as having a recently negative CT scan, with signs and symptoms consistent with more musculoskeletal chest pain, versus precordial catch syndrome, I feel that she can be safely discharged home with close follow-up. I had a long discussion with her regarding red flags which to return, and the importance of Tylenol, Motrin for her pain. I have extensively reviewed the treatment plan and discharge instructions with the patient. I have addressed all patient concerns at this time. The patient was made aware of what symptoms to monitor for that would warrant a return to the emergency department. Discussed the plan with the patient, they demonstrate verbal understanding and agreement with our assessment and plan at this time. EKG 11: 25 Rate 78, intervals normal, sinus rhythm, no ST elevations or depressions, inverted T wave in V1 which is normal. No significant Q waves. HPI <Edwin Villasenor MD - Last Filed: 09/21/18 21:40> General Mode of arrival: EMS . Date/Time Provider Initiated Documentation: 09/21/18 05:26 . Limitations to Documentation: no limitations . Information obtained by: patient and old records reviewed . HPI Narrative: Patient presents with recurrent, sharp, pleuritic chest pain. She was seen here a week ago for same. Workup including CTA of the chest was negative. Reports recurrent chest pain starting at 1 AM. She has difficulty breathing because of pain. She is anxious. Pain is both in the upper chest as well as under the left breast. Seems to radiate to the back. She denies any fever or cough. She was on antibiotics last month for pneumonia. She has no leg pain or leg swelling. She is not on control. She does not smoke. She has no abdominal complaints. Related Data Home Medications Medication Instructions Recorded Confirmed bupropion HCl [Wellbutrin SR] 100 mg PO BID 08/13/18 09/21/18 cariprazine [Vraylar] 3 mg PO DAILY 08/13/18 09/21/18 paroxetine HCl [Paxil] 60 mg PO DAILY 08/13/18 09/21/18 ibuprofen 600 mg PO TID #15 tab 09/15/18 09/21/18 ondansetron 4 mg PO QID PRN #7 tab 09/15/18 09/21/18 acetaminophen [Mapap Extra 1,000 mg PO Q6H 5 Days #60 tab 09/21/18 Strength] ibuprofen [Motrin Ib] 600 mg PO Q6H 5 Days #60 tab 09/21/18 Previous Rx's Medication Instructions Recorded ibuprofen 600 mg PO TID #15 tab 09/15/18 ondansetron 4 mg PO QID PRN #7 tab 09/15/18 acetaminophen [Mapap Extra 1,000 mg PO Q6H 5 Days #60 tab 09/21/18 Strength] ibuprofen [Motrin Ib] 600 mg PO Q6H 5 Days #60 tab 09/21/18 Allergies Allergy/AdvReac Type Severity Reaction Status Date / Time oxycodone [From Percocet] Allergy Severe Anaphylaxsi Unverified 09/21/18 05:14 s General Stated Complaint: SOB JULIÁN: 3 Review of Systems <Edwin Villasenor MD - Last Filed: 09/21/18 21:40> Constitutional Denies chills, Denies fever(s) and Denies headache(s) Eyes Denies eye discharge and Denies eye pain ENT Denies otalgia, Denies headache(s), Denies nasal congestion and Denies sore throat Cardiovascular Reports chest pain, Denies syncope, Denies pedal edema, Denies palpitations and Reports dyspnea Respiratory Denies cough, Reports pain on inspiration and Reports dyspnea Gastrointestinal Denies abdominal pain, Denies diarrhea, Denies nausea and Denies vomiting Genitourinary Denies hematuria, Denies dysuria and Denies pelvic pain Musculoskeletal Denies myalgias, Denies arthralgias and Denies numbness Integumentary/Breasts Denies rash and Reports sores Neurologic Denies syncope, Denies headache(s), Denies focal weakness and Denies numbness Endocrine Denies palpitations Exam <Edwin Villasenor MD - Last Filed: 09/21/18 21:40> Const General: anxious Nutritional Appearance: obese Orientation: alert and oriented x3 HENMT Head: normocephalic and atraumatic Neck Neck: normal visual inspection, trachea midline and supple Chest Chest: tenderness costochondral junction Resp Effort & Inspection: tachypneic Auscultation: clear to auscultation bilaterally Cardio Rate: regular rate Rhythm: regular rhythm Heart Sounds: S1 normal and S2 normal Pulses: radial pulses present GI Palpation: soft, not firm, no guarding and nontender Back/Spine/Pelvis Thoracic/Lumbar Spine: thoraco-lumbar ROM normal Skin Lesions: lesion noted (sores/scabs on arms) Rashes: no rashes Neuro General: alert, oriented x3, no focal motor deficits and CN's II-XI intact bilaterally Course <Edwin Villasenor MD - Last Filed: 09/21/18 21:40> Vital Signs Temperature 98.6 F 09/21/18 05:07 Pulse 95 H 09/21/18 05:07 Respiratory Rate 28 H 09/21/18 05:07 Blood Pressure 119/88 09/21/18 05:07 Pulse Oximetry 99 09/21/18 05:07 Temperature 98.6 F 09/21/18 05:07 Temperature Source Skin 09/21/18 05:07 Pulse 95 H 09/21/18 05:07 Respiratory Rate 28 H 09/21/18 05:07 Respiratory Effort Non-Labored 09/21/18 05:11 Blood Pressure 119/88 09/21/18 05:07 Pulse Oximetry 99 09/21/18 05:07 Oxygen Delivery Method Room Air 09/21/18 05:07 Oxygen Flow Rate 0 09/21/18 05:07 Pain Level 10 09/21/18 05:07
[2018-09-21] MEDS: LORazepam 2 MG/ML VIAL 0.5 MG IVP (06:01)
[2018-09-21] MEDS: Ketorolac 30 MG/ML VIAL IVP (06:01)
[2018-09-21 06:06] LABS: Anion Gap 11.9 mmol/L (3-11); BUN 7 mg/dL (7-18); CO2 28.1 mmol/L (21.0-32.0); CREATININE 0.78 mg/dL (0.55-1.02); Chloride 98 mmol/L (98-107); Glucose 109 mg/dL (70-100); Magnesium 1.7 mg/dL (1.8-2.4); Potassium 3.7 mmol/L (3.5-5.1); Sodium 138 mmol/L (136-145); Troponin I < 0.02 ng/mL (0.00-0.06)
--- NOTE | 2018-09-21 06:10 | DI.RAD_ITS ---
SYMPTOM/DIAGNOSIS: CHEST PAIN, SOB PA AND LATERAL CHEST: The heart is normal in size. The lungs are clear. The mediastinal structures and pleura appear intact. CONCLUSION: Normal chest. No evidence of a pneumothorax.
--- NOTE | 2018-09-21 06:17 | DI.VRAD_ITS ---
EXAM: XR Chest, 2 Views EXAM DATE/TIME: 09/21/2018 5:44 AM CLINICAL HISTORY: 32 years old, female; Pain and signs and symptoms; Cough and shortness of breath; Chest pain; Type not specified; Patient HX: Cough, SOB, and chest pain since TECHNIQUE: XR of the chest, 2 views. COMPARISON: SC XR PORTABLE CHEST AP 09/15/2018 5:59 PM FINDINGS: Lungs: Basilar dependent pulmonary atelectasis is present. Pleural space: Unremarkable. No pleural effusion. No pneumothorax. Heart/Mediastinum: Unremarkable. No cardiomegaly. Bones/joints: Unremarkable. IMPRESSION: No acute findings Dictated and Authenticated by: Charles Arreola MD. Ordering:PADMINI JAIMES MD
[2018-09-21] MEDS: Acetaminophen 500 MG TAB 1000 MG PO (07:02)
[2018-09-21] MEDS: HYDROmorphone 2 MG/ML VIAL 0.5 MG IVP (08:07)
[2018-09-21 11:20] LABS: Troponin I < 0.02 ng/mL (0.00-0.06)
== END 2018-09-21 12:02 | disposition home or self-care (01) ==
PROVIDERS: Emergency Medicine; Emergency Provider Student in an Organized Health Care Education/Training Program; PCP Nurse Practitioner Family
DX: R07.81 Pleurodynia (principal)
CPT/HCPCS: 36415; 80048; 81025; 93005; 96374; 96375; 99285; 71046; 83735; 84484; 93010; 99284; J1885; J2060

== ENCOUNTER 2018-12-01 12:04 | Outpatient (CLI) | payer MEDICAID, SELFPAY ==
[2018-12-01 13:27] LABS: ALT 130 U/L (12-78); AST 67 U/L (15-37); Albumin 3.8 g/dL (3.4-5.0); Alkaline Phosphatase 87 U/L (46-116); Anion Gap 11.2 mmol/L (3-11); BUN 13 mg/dL (7-18); Bilirubin, Total 0.5 mg/dL (0.2-1.0); CO2 24.8 mmol/L (21.0-32.0); CREATININE 0.65 mg/dL (0.55-1.02); Calcium 8.9 mg/dL (8.5-10.1); Chloride 103 mmol/L (98-107); Cholesterol 217 mg/dL (50-200); Glucose 102 mg/dL (70-100); HDL Cholesterol 33 mg/dL (40-60); LDL CHOLESTEROL 165 mg/dL (<100); Potassium 3.9 mmol/L (3.5-5.1); Sodium 139 mmol/L (136-145); TSH 6.28 uIU/mL (0.358-3.74); Total Protein 7.6 g/dL (6.4-8.2); Triglyceride 176 mg/dL (30-150)
== END 2018-12-01 12:24 ==
PROVIDERS: PCP Nurse Practitioner Family; Visit Provider Nurse Practitioner Family
DX: F33.1 Major depressive disorder, recurrent, moderate (principal); Z79.899 Other long term (current) drug therapy
CPT/HCPCS: 36415; 80053; 80061; 83721; 84443

== ENCOUNTER 2018-12-15 11:32 | Outpatient (CLI) | payer MEDICAID, SELFPAY ==
[2018-12-15 13:03] LABS: Iron 77 ug/dL (50-175); Total Iron Binding Capacity 312 ug/dL (250-450); Transferrin Sat 25 % (15-50)
[2018-12-15 13:17] LABS: Ferritin 56 ng/mL (8-388)
[2018-12-16 09:50] LABS: Hepatitis B Surface Ag Negative (NEGAT)
[2018-12-16 09:53] LABS: Hepatitis C Ab w Rflx HCV PCR Negative (NEGAT)
[2018-12-17 12:20] LABS: Hepatitis A IgM Ab Negative (Negative)
== END 2018-12-15 11:52 ==
PROVIDERS: PCP Nurse Practitioner Family; Visit Provider Nurse Practitioner Family
DX: K76.0 Fatty (change of) liver, not elsewhere classified (principal); R94.5 Abnormal results of liver function studies; E03.9 Hypothyroidism, unspecified; Z11.59 Encounter for screening for other viral diseases
CPT/HCPCS: 36415; 86803; 87340; 82728; 83540; 83550; 86709

== ENCOUNTER 2018-12-15 11:40 | Outpatient (REF) | payer MEDICAID, SELFPAY ==
[2018-12-20 14:13] LABS: Helicobacter pylori Ag, Feces Negative (NEGAT)
== END 2018-12-15 12:00 ==
LOC: NCHCN 11:40
PROVIDERS: PCP Nurse Practitioner Family; Visit Provider Nurse Practitioner Family
DX: R10.9 Unspecified abdominal pain (principal); R19.7 Diarrhea, unspecified
CPT/HCPCS: 87338

== ENCOUNTER 2019-01-05 12:45 | Outpatient (REF) | payer MEDICAID, SELFPAY ==
--- NOTE | 2019-01-05 10:30 | PAPFT_PTH ---
PATIENT: Tawana Blood LOC: [facility] U#:[id number] AGE/SX: 33/F ROOM: RE01/05/[address]: HECTOR Hinds : 1985 BED: DIS: 01/05/2019 SPEC #: [id number] RECD: 01/05/19 12:53 STATUS: ERICKSON REGeni #: [id number] KI: 01/05/19 10:[address]: Treasure Villa DEPT: [facility] Cytology RECD BY: Ritu Holden ENTERED: 01/05/19 12:53 SP TYPE: PAPFT OTHR DR: Syeda Sanches Tissues: 1 - CX/ENDOCX FOR PAP SMEARS Procedures: PAP THIN PREP/UVM Screening HPV DNA PROBE Comments: [id number]
== END 2019-01-05 13:05 ==
LOC: LBN 12:45
PROVIDERS: PCP Nurse Practitioner Family; Visit Provider Nurse Practitioner Family
DX: Z12.4 Encounter for screening for malignant neoplasm of cervix (principal); Z11.51 Encounter for screening for human papillomavirus (HPV)
CPT/HCPCS: 88142; 87624

== ENCOUNTER 2019-01-11 13:32 | Outpatient (REF) | payer MEDICAID, SELFPAY ==
[2019-01-11 14:24] LABS: TSH 4.41 uIU/mL (0.358-3.74)
== END 2019-01-11 13:52 ==
LOC: NCHCN 13:32
PROVIDERS: PCP Nurse Practitioner Family; Visit Provider Nurse Practitioner Family
DX: E03.9 Hypothyroidism, unspecified (principal); K30 Functional dyspepsia
CPT/HCPCS: 84443

== ENCOUNTER 2019-02-19 09:46 | Emergency (ER) | payer MEDICAID, SELFPAY ==
[2019-02-19] VITALS (33 sets, daily range): BP systolic 98–119; BP diastolic 54–74; PULSE 61–81; RESP 12–26; TEMP 36.5–36.8; O2SAT 95–98
--- NOTE | 2019-02-19 10:17 | ED.GENADUL_ITS ---
Discharge Plan Disposition Patient Disposition: HOME Condition: Improving Discharge Details Chief Complaint: Dizzy/Sync Clinical Impression: Peripheral vertigo Primary Care Provider: Syeda Sanches ED Provider: Flavio Marsh Home Meds and New Rx's Prescriptions: New meclizine 25 mg tablet 25 mg PO TID PRN (Reason: dizziness) Qty: 14 RF: 0 Continued fluoxetine [Prozac] 40 mg capsule 60 mg PO DAILY RF: 0 medroxyprogesterone [Provera] 10 mg tablet 10 mg PO DAILY Qty: 10 RF: 0 levothyroxine [Synthroid] 25 mcg tablet 25 mcg PO DAILY RF: 0 ibuprofen 600 mg tablet 600 mg PO TID Qty: 15 RF: 0 Discharge Instructions Additional Instructions: Home to rest today. Continue small, frequent sips of fluids to maintain hydration. He will benefit from sleeping with the head of the bed elevated 2-3 pillows for the next 2-3 nights time. May use meclizine as prescribed, if needed for persistent vertigo. Return if you develop worsening dizziness or any other acute concerns. Continue your regular medications Medical Decision Making 33-year-old female presents with the onset of vertiginous symptoms yesterday. Somewhat positional, reproducible on exam. She is afebrile with normal blood pressure and pulse. Her neurologic exam is unremarkable. Referred for screening CT scan of the head. Laboratories obtained. Patient given fluid bolus and meclizine. CT without acute findings. Laboratory analysis unremarkable. Patient was able to rest. Following this she was reevaluated, ambulatory, with some improvement of her vertiginous symptoms. Discussed with her home management including use of meclizine, sitting with head of the bed elevated. She is stable and improved, appropriate for discharge to home at this time. Lab Data Lab results reviewed: Yes I reviewed the patient's lab results. Laboratory Results - last 24 hr 02/19/19 02/19/19 11:16 11:16 WBC 8.51 RBC 4.23 Hgb 13.2 Hct 38.2 MCV 90.3 MCH 31.2 MCHC 34.6 RDW 13.4 Plt Count 208 MPV 10.7 Immature Gran % 0.2 Neutrophils % 64.6 Lymphocytes % 24.9 Monocytes % 8.9 Eosinophils % 1.3 Basophils % 0.1 Absolute Neutrophils 5.49 Absolute Lymphocytes 2.12 Absolute Monocytes 0.76 H Absolute Eosinophils 0.11 Absolute Basophils 0.01 Sodium 137 Potassium 4.2 Chloride 102 Carbon Dioxide 25.4 Anion Gap 9.6 BUN 8 Creatinine 0.58 Estimated GFR/1.73 m2 >= 60.00 Glucose 90 Calcium 8.6 Magnesium 1.7 L Total Bilirubin 0.4 AST 48 H ALT 78 Alkaline Phosphatase 86 Troponin I < 0.02 Total Protein 7.4 Albumin 3.5 HPI General Mode of arrival: ambulatory . Date/Time Provider Initiated Documentation: 02/19/19 10:11 . Limitations to Documentation: no limitations . Information obtained by: patient . History of Present Illness 33 year old F presents to the emergency department with the chief complaint of Vertiginous symptoms since waking up from a nap yesterday afternoon, described as moderate, Quality is described as other (Spinning), and is localized to the head. Patient reports no radiation. Patient started experiencing this hour(s) and it has been constant. Rest improves symptom(s), Movement worsens symptoms . Patient notes no other symptoms.; denies headaches, seizure, shortness of breath, syncope and weakness. Patient did receive the following treatments prior to arrival, other (Dramamine) Related Data Home Medications Medication Instructions Recorded Confirmed ibuprofen 600 mg PO TID #15 tab 09/15/18 02/19/19 fluoxetine 40 mg capsule 60 mg PO DAILY cap 01/05/19 02/19/19 levothyroxine 25 mcg tablet 25 mcg PO DAILY 01/05/19 02/19/19 medroxyprogesterone 10 mg tablet 10 mg PO DAILY #10 tab 01/05/19 02/19/19 meclizine 25 mg PO TID PRN #14 tab 02/19/19 Previous Rx's Medication Instructions Recorded ibuprofen 600 mg PO TID #15 tab 09/15/18 medroxyprogesterone 10 mg tablet 10 mg PO DAILY #10 tab 01/05/19 meclizine 25 mg PO TID PRN #14 tab 02/19/19 Allergies Allergy/AdvReac Type Severity Reaction Status Date / Time oxycodone [From Percocet] Allergy Severe Anaphylaxsi Verified 02/19/19 09:55 s General Stated Complaint: Dizzy/Sync JULIÁN: 3 Review of Systems Review of Systems 8 systems reviewed and otherwise neg [facility] Medical History PTSD (post-traumatic stress disorder) (Chronic) Depression (Chronic) Hypothyroid (Chronic) Surgical History S/P bilateral breast reduction (Acute) History of delivery (Inactive) Tubal ligation status (Inactive) Family History Father Thyroid disorder Cirrhosis Mother Cirrhosis Social History Smoking/Tobacco Use Status: Former Tobacco Use Alcohol Intake: never Drug use: Never Do you feel safe at home: Yes Do you feel safe in your relationship?: Yes Female Reproductive History Menstrual control method: permanent sterilization (BTL approx 4 years ago) History History 1 Para 1 Hx # Term Pregnancies Multiple births Hx # Pregnancies Ectopic pregnancies AB induced Hx Number of Living Children AB spontaneous Exam Narrative Exam Narrative: GEN: awake, alert, oriented 3. Pleasant, well groomed, interactive. HEAD: Normocephalic, atraumatic ENT: Mucous membranes moist, oropharynx unremarkable, External ear exam unremarkable EYES: PERRL, EOMI NECK: Full ROM, no MANDO, no menigismus CHEST/RESP: Nontender, clear to auscultation bilateral, no wheeze/rhonchi/rales CARDIOVASCULAR: RRR, no murmur, rub radha. 2+ Rad pulse bilateral ABDOMEN: Soft, nontender, no mass. +Bowel sounds EXT: Full ROM, no edema, no rash Neuro: Grossly normal neurologic exam, conversant, interactive. Cranial nerves II through XII intact. With right horizontal gaze there is 2-3 beat horizontal nystagmus that provoke symptoms . Finger to nose intact bilaterally per Psych: Speech fluent, thoughts congruent, affect normal Course Vital Signs Temperature 36.8 C 02/19/19 09:50 Pulse 71 02/19/19 09:50 Respiratory Rate 22 02/19/19 09:50 Blood Pressure 113/60 02/19/19 09:50 Pulse Oximetry 96 02/19/19 09:50 Temperature 36.8 C 02/19/19 09:50 Temperature Source Temporal Artery Scan 02/19/19 09:50 Pulse 71 02/19/19 09:50 Respiratory Rate 22 02/19/19 09:56 Respiratory Effort Non-Labored 02/19/19 09:56 Respiratory Depth Normal 02/19/19 09:56 Respiratory Pattern Normal 02/19/19 09:56 Blood Pressure 113/60 02/19/19 09:50 Blood Pressure Position Supine 02/19/19 09:50 Pulse Oximetry 96 02/19/19 09:50 Oxygen Delivery Method Room Air 02/19/19 09:50 Oxygen Flow Rate 0 02/19/19 09:50 Pain Level 0 02/19/19 09:50
[2019-02-19] MEDS: Normal Saline 1,000 ML 1000 ML IV (11:05)
[2019-02-19] MEDS: Meclizine 25 MG TAB PO (11:06)
[2019-02-19 11:24] LABS: Abs Immature Grans 0.02 k/cumm (0.0-0.09); Absolute Basophil Count 0.01 k/cumm (0.0-0.2); Absolute Eosinophil Count 0.11 k/cumm (0.0-0.7); Absolute Lymphocyte Count 2.12 k/cumm (1.2-3.4); Absolute Monocyte Count 0.76 k/cumm (0.11-0.7); Absolute Neutrophil Count 5.49 k/cumm (1.2-6.7); Basophils % 0.1; Eosinophils % 1.3; HCT 38.2 % (36.0-46.0); HGB 13.2 g/dL (12.0-15.5); Immature Grans % 0.2; Lymphocytes % 24.9; Mean Corp. HGB Concentration 34.6 g/dL (32.0-36.0); Mean Corpuscular Hemoglobin 31.2 pg (27.0-33.0); Mean Corpuscular Volume 90.3 fL (80-95); Mean Platelet Volume 10.7 fL (8.0-11.0); Monocytes % 8.9; Neutrophils % 64.6; Platelet Count 208 x1000/uL (130-400); RBC 4.23 m/cumm (4.00-5.20); RBC Distribution Width 13.4 % (11.7-14.6); White Blood Cell Count 8.51 k/cumm (4.4-10.8)
[2019-02-19 11:40] LABS: ALT 78 U/L (12-78); AST 48 U/L (15-37); Albumin 3.5 g/dL (3.4-5.0); Alkaline Phosphatase 86 U/L (46-116); Anion Gap 9.6 mmol/L (3-11); BUN 8 mg/dL (7-18); Bilirubin, Total 0.4 mg/dL (0.2-1.0); CO2 25.4 mmol/L (21.0-32.0); CREATININE 0.58 mg/dL (0.55-1.02); Calcium 8.6 mg/dL (8.5-10.1); Chloride 102 mmol/L (98-107); Glucose 90 mg/dL (70-100); Magnesium 1.7 mg/dL (1.8-2.4); Potassium 4.2 mmol/L (3.5-5.1); Sodium 137 mmol/L (136-145); Total Protein 7.4 g/dL (6.4-8.2); Troponin I < 0.02 ng/mL (0.00-0.06)
--- NOTE | 2019-02-19 11:45 | DI.CT_ITS ---
SYMPTOM/DIAGNOSIS: VERTIGO NONCONTRAST HEAD CT: Comparison is made with 07/26/17. A noncontrast cranial CT was performed. The ventricular system is normal in appearance. There is no evidence of an intracranial mass lesion. There is no evidence of a subdural or epidural hematoma. No focal areas of decreased attenuation are seen. CONCLUSION: Normal noncontrast Cranial CT.
--- NOTE | 2019-02-19 12:02 | DI.VRAD_ITS ---
EXAM: CT Head Without Contrast EXAM DATE/TIME: 02/19/2019 10:16 AM CLINICAL HISTORY: 33 years old, female; Signs and symptoms; Other: Vertigo TECHNIQUE: Imaging protocol: Axial computed tomography images of the head/brain without contrast. Coronal and sagittal reformatted images were created and reviewed. Radiation optimization: All CT scans at this facility use at least one of these dose optimization techniques: automated exposure control; mA and/or kV adjustment per patient size (includes targeted exams where dose is matched to clinical indication); or iterative reconstruction. COMPARISON: CT HEAD AND CSPINE W/O CONTRAST 07/26/2017 9:27 AM FINDINGS: Brain: Unremarkable. No hemorrhage. No significant white matter disease. No edema. Ventricles: Unremarkable. No ventriculomegaly. Bones/joints: Unremarkable. No acute fracture. Sinuses: Visualized sinuses are unremarkable. No acute sinusitis. Mastoid air cells: Visualized mastoid air cells are unremarkable. No mastoid effusion. Soft tissues: Unremarkable. IMPRESSION: No acute abnormality. Dictated and Authenticated by: Mario Powell MD. Ordering:PIERCE Muniz MD
--- NOTE | 2019-02-19 13:45 | NUR.NOTE ---
Nursing Note: Patient called stating she dropped her discharge paperwork on her way walking home. Called in the prescription: meclizine 25mg PO TID #14 no refills to [place] Per Dr. Marsh. Leonela Grey.
== END 2019-02-19 13:32 | disposition home or self-care (01) ==
PROVIDERS: Emergency Provider Emergency Medicine; PCP Nurse Practitioner Family
DX: H81.399 Other peripheral vertigo, unspecified ear (principal)
CPT/HCPCS: 36415; 80053; 96360; 99284; 70450; 83735; 84484; 85025

== ENCOUNTER 2019-03-17 09:15 | Observation (INO) | payer MEDICAID, SELFPAY ==
[2019-03-17 09:19] VITALS: BP 160/105; PULSE 104; RESP 20; TEMP 37.5; O2SAT 99
--- NOTE | 2019-03-17 09:27 | DI.MRI_ITS ---
SYMPTOMS/DIAGNOSIS: DIZZINESS, LT TINNITUS, SEVERE VERTIGO WITH VOMITING FOR 2 WKS, NL HEAD CT, ? HEARING LOSS, ? ACOUSTIC NEUROMA/ANEURYSM BRAIN MRI WITH IAC PROTOCOL: MRI examination of the brain was performed according to the usual protocol with additional whole brain post contrast imaging and pre and post contrast high resolution imaging of the region of the posterior fossa. The examination is technically limited due to motion artifact on multiple pulse sequences. No gross mass lesion or enhancing lesion seen in the brain. No IAC mass or enhancing lesion. The orbital structures appear intact. The ventricular system is normal in appearance. Diffusion weighted imaging is unremarkable. Susceptibility weighted imaging is nondiagnostic. Flow void in the [place] vasculature is poorly visualized. CONCLUSION: No evidence of mass lesion or enhancing lesion in the region of the cerebellopontine angles or elsewhere in the brain. The examination was somewhat limited to motion.
--- NOTE | 2019-03-17 09:34 | W.ED.GENAD ---
Discharge Plan Disposition Patient Disposition: [facility] INPATIENT Condition: Stable Discharge Details Chief Complaint: Dizzy/Sync Clinical Impression: Acute intractable headache Primary Care Provider: Leora Ortega ED Provider: Flavio Marsh Home Meds and New Rx's Prescriptions: No Action fluoxetine [Prozac] 40 mg capsule 60 mg PO DAILY RF: 0 medroxyprogesterone [Provera] 10 mg tablet 10 mg PO DAILY Qty: 10 RF: 0 levothyroxine [Synthroid] 25 mcg tablet 25 mcg PO DAILY RF: 0 ibuprofen 600 mg tablet 600 mg PO TID Qty: 15 RF: 0 meclizine 25 mg tablet 25 mg PO TID PRN (Reason: dizziness) Qty: 14 RF: 0 Medical Decision Making 33-year-old female known to me from initial visit to the emergency department on February 19 at which time she had vertiginous symptoms, underwent unremarkable CT scan of the head and improved with fluids and meclizine. At follow-up in clinic she was reported to have improvement with Qing maneuver. She since describes approximately 3 weeks of worsening and recurrent daily episodes of vertigo that have been associated with worsening with position as well as unsteadiness of gait. She had been referred for outpatient MRI, but due to worsening symptoms returns to the ED today. She arrives afebrile, in distress with active nausea and vomiting. Differential diagnosis would now include central mass, acoustic neuroma, versus persistent peripheral vertigo, migrainous vertigo, or multiple sclerosis. Patient given antiemetic, fluids, screening labs obtained and she is referred for MRI. Diagnostic laboratories reassuring, with note of AST 50, ALT 95. Patient's initial vital signs revealed tachycardia and hypertension, both of which corrected to 139/89 with a pulse of 82. Following MRI she complains primarily of headache and photophobia. Patient given additional parenteral medications. MRI: No evidence of mass lesion or enhancing lesion in the region of the cerebellopontine angles or elsewhere in the brain. Following parenteral medications for migraine, the patient has some improvement, but complains of persistent headache although she feels the vertigo is improving. She does not feel that she is able to take liquids or solids by mouth, complains of the persistent headache, and may require admission for intractable migraine. I do not find that she has evidence of meningitis, would defer LP at this time. Lab Data Lab results reviewed: Yes I reviewed the patient's lab results. Laboratory Results - last 24 hr 03/17/19 03/17/19 10:05 10:05 WBC 6.36 RBC 4.04 Hgb 12.3 Hct 36.3 MCV 89.9 MCH 30.4 MCHC 33.9 RDW 13.3 Plt Count 227 MPV 10.3 Immature Gran % 0.2 Neutrophils % 54.0 Lymphocytes % 30.8 Monocytes % 11.8 Eosinophils % 2.7 Basophils % 0.5 Absolute Neutrophils 3.44 Absolute Lymphocytes 1.96 Absolute Monocytes 0.75 H Absolute Eosinophils 0.17 Absolute Basophils 0.03 Sodium 138 Potassium 3.9 Chloride 104 Carbon Dioxide 24.9 Anion Gap 9.1 BUN 7 Creatinine 0.63 Estimated GFR/1.73 m2 >= 60.00 Glucose 104 H Calcium 8.6 Magnesium 1.8 Total Bilirubin 0.3 AST 50 H ALT 95 H Alkaline Phosphatase 80 Total Protein 7.3 Albumin 3.7 HPI General Mode of arrival: ambulatory. Date/Time Provider Initiated Documentation: 03/17/19 09:18. Limitations to Documentation: no limitations. Information obtained by: patient. History of Present Illness 33 year old F presents to the emergency department with the chief complaint of Worsening vertigo for 1 month, described as moderate, severe and similar to prior episodes, Quality is described as dull and constant, and is localized to the head. Patient reports no radiation. Patient started experiencing this week(s) and it has been constant. Rest improves symptom(s), Movement worsens symptoms . Patient notes loss of appetite; denies fever/chills. Patient did receive the following treatments prior to arrival, other (She has had physical therapy as well as meclizine) Related Data Home Medications Medication Instructions Recorded Confirmed ibuprofen 600 mg PO TID #15 tab 09/15/18 02/19/19 fluoxetine 40 mg capsule 60 mg PO DAILY cap 01/05/19 02/19/19 levothyroxine 25 mcg tablet 25 mcg PO DAILY 01/05/19 02/19/19 medroxyprogesterone 10 mg tablet 10 mg PO DAILY #10 tab 01/05/19 02/19/19 meclizine 25 mg PO TID PRN #14 tab 02/19/19 Previous Rx's Medication Instructions Recorded ibuprofen 600 mg PO TID #15 tab 09/15/18 medroxyprogesterone 10 mg tablet 10 mg PO DAILY #10 tab 01/05/19 meclizine 25 mg PO TID PRN #14 tab 02/19/19 Allergies Allergy/AdvReac Type Severity Reaction Status Date / Time oxycodone [From Percocet] Allergy Severe Anaphylaxsi Verified 03/17/19 10:33 s General Stated Complaint: Dizzy/Sync JULIÁN: 3 Review of Systems Review of Systems Worsening vertiginous symptoms, unsteadiness of gait over 3 to 4 weeks time, mild headaches. Denies direct trauma, no recent illness. 8 systems reviewed and otherwise negative. [facility] Social History Smoking/Tobacco Use Status: Former Tobacco Use Alcohol Intake: never Drug use: Never Do you feel safe at home: Yes Do you feel safe in your relationship?: Yes Female Reproductive History Menstrual control method: permanent sterilization (BTL approx 4 years ago) History History 1 Para 1 Hx # Term Pregnancies Multiple births Hx # Pregnancies Ectopic pregnancies AB induced Hx Number of Living Children AB spontaneous Exam Narrative Exam Narrative: GEN: awake, alert, oriented 3. Pleasant, interactive. HEAD: Normocephalic, atraumatic ENT: Mucous membranes moist, oropharynx unremarkable, External ear exam unremarkable EYES: PERRL, EOMI, horizontal nystagmus present. NECK: Full ROM, no MANDO, no menigismus CHEST/RESP: Nontender, clear to auscultation bilateral, no wheeze/rhonchi/rales CARDIOVASCULAR: RRR, no murmur, rub radha. 2+ Rad pulse bilateral ABDOMEN: Soft, nontender, no mass. +Bowel sounds EXT: Full ROM, no edema, no rash Neuro: Cranial nerves II through XII intact, conversant, interactive. Psych: Speech fluent, thoughts congruent, affect normal Course Vital Signs Temperature 37.5 C 03/17/19 09:19 Pulse 104 H 03/17/19 09:19 Respiratory Rate 20 03/17/19 09:19 Blood Pressure 160/105 H 03/17/19 09:19 Pulse Oximetry 99 03/17/19 09:19 Temperature 37.5 C 03/17/19 09:19 Temperature Source Skin 03/17/19 09:19 Pulse 104 H 03/17/19 09:19 Respiratory Rate 20 03/17/19 09:19 Blood Pressure 160/105 H 03/17/19 09:19 Pulse Oximetry 99 03/17/19 09:19 Oxygen Delivery Method Room Air 03/17/19 09:19 Oxygen Flow Rate 0 03/17/19 09:19 Pain Level 10 03/17/19 09:19
[2019-03-17] MEDS: Normal Saline Flush 10 ML SYR IVP ×2 (09:50→12:24)
[2019-03-17] MEDS: Normal Saline 1,000 ML 1000 ML IV ×2 (09:50→11:36)
[2019-03-17] MEDS: LORazepam 2 MG/ML VIAL 1 MG IVP (09:57)
[2019-03-17] MEDS: Ondansetron 4 MG/2 ML VIAL (10:10)
[2019-03-17 10:15] LABS: Abs Immature Grans 0.01 k/cumm (0.0-0.09); Absolute Basophil Count 0.03 k/cumm (0.0-0.2); Absolute Eosinophil Count 0.17 k/cumm (0.0-0.7); Absolute Lymphocyte Count 1.96 k/cumm (1.2-3.4); Absolute Monocyte Count 0.75 k/cumm (0.11-0.7); Absolute Neutrophil Count 3.44 k/cumm (1.2-6.7); Basophils % 0.5; Eosinophils % 2.7; HCT 36.3 % (36.0-46.0); HGB 12.3 g/dL (12.0-15.5); Immature Grans % 0.2; Lymphocytes % 30.8; Mean Corp. HGB Concentration 33.9 g/dL (32.0-36.0); Mean Corpuscular Hemoglobin 30.4 pg (27.0-33.0); Mean Corpuscular Volume 89.9 fL (80-95); Mean Platelet Volume 10.3 fL (8.0-11.0); Monocytes % 11.8; Platelet Count 227 x1000/uL (130-400); RBC 4.04 m/cumm (4.00-5.20); RBC Distribution Width 13.3 % (11.7-14.6); White Blood Cell Count 6.36 k/cumm (4.4-10.8)
[2019-03-17 10:26] LABS: ALT 95 U/L (12-78); AST 50 U/L (15-37); Albumin 3.7 g/dL (3.4-5.0); Alkaline Phosphatase 80 U/L (46-116); Anion Gap 9.1 mmol/L (3-11); BUN 7 mg/dL (7-18); Bilirubin, Total 0.3 mg/dL (0.2-1.0); CO2 24.9 mmol/L (21.0-32.0); CREATININE 0.63 mg/dL (0.55-1.02); Calcium 8.6 mg/dL (8.5-10.1); Chloride 104 mmol/L (98-107); Glucose 104 mg/dL (70-100); Magnesium 1.8 mg/dL (1.8-2.4); Potassium 3.9 mmol/L (3.5-5.1); Sodium 138 mmol/L (136-145); Total Protein 7.3 g/dL (6.4-8.2)
[2019-03-17 10:41] VITALS: RESP 20
[2019-03-17 10:48] LABS: Bilirubin Negative (Negative); Blood Negative (Negative); Clarity Clear; Glucose Negative (Negative); Ketones Negative (Negative); Leukocyte Esterase Negative (Negative); Nitrite Negative (Negative); Specific Gravity 1.015 (1.005-1.025); Urobilinogen 0.2 EU/dL (Up TO 0.2)
[2019-03-17 10:49] LABS: INR 0.9 (0.9-1.1); PTT Activated 22.5 sec (21.0-31.4); Prothrombin Time 9.4 sec (9.3-11.0)
[2019-03-17] MEDS: LORazepam 2 MG/ML VIAL 0.5 MG IVP (11:35)
[2019-03-17 11:38] VITALS: BP 139/89; PULSE 82; TEMP 37.1; O2SAT 97
[2019-03-17] MEDS: Gadoterate meglumine 20 ML VIAL IVP (12:24)
[2019-03-17] MEDS: HYDROmorphone 2 MG/ML VIAL 0.5 MG IVP (13:25)
[2019-03-17] MEDS: Ondansetron 4 MG/2 ML VIAL IVP (13:26)
[2019-03-17] MEDS: Dexamethasone 10 MG/ML VIAL IVP (13:27)
[2019-03-17] MEDS: Ketorolac 30 MG/ML VIAL (13:28)
--- NOTE | 2019-03-17 15:05 | HPE_ITS ---
Date of service: 03/17/19 Time of Service: 15:00 Assessment and Plan (1) Vertigo: Current visit: Yes Status: Acute no obvious abnormality on imaging. will continue meclizine and zofran PRN (2) Headache: Current visit: Yes Status: Acute no evidence abnoramality on MRI, no evidence meningtits or encephalitis. tension headache vs possible pseudotumor cerebri will try to manage with non opiate analgesia. she should f/u with neurology as outpatient for further evaluation. (3) Transaminitis: Current visit: Yes Status: Acute asymptomatic, possible NAFLD vs less likely chronic viral infection although she denies known risk factors. this should be followed up as outpatient. History of Present Illness Chief Complaint: vertigo Narrative: patient is a 33 y/o F with H depression, hypothyroidism, and several months vertigo. She was seen in February 2019 for similar presentation at which time CT head was negative and she was instructed to start meclizine which she reports has not been that helpful. She called her PCP the morning of admission reporting severe headache and vertigo. She was instructed to present to ED for urgent MRI. Upon arrival she was afebrile and HD stable. She had no neurologic deficits. Labs notable for mild transaminitis. She underwent MRI which was technically limited but with no obvious abnormality. She was treated with antiemetics, benzodiazepines, ketorlac, and dilaudid. At the time of exam she was responding to questions apropriately although somewhat sedated. She reported she has been having daily headache, blurred vision, and vertigo. She states she has an upcoming appt with neurology. She denies any ilicit drug use. Typically uses ibuprofen for headaches. At the time of exam [facility] Medical History PTSD (post-traumatic stress disorder) (Chronic) Depression (Chronic) Hypothyroid (Chronic) Surgical History S/P bilateral breast reduction (Acute) History of delivery (Inactive) Tubal ligation status (Inactive) Family History Father Thyroid disorder Cirrhosis Mother Cirrhosis Social History Smoking/Tobacco Use Status: Former Tobacco Use Alcohol Intake: never Drug use: Never Do you feel safe at home: Yes Do you feel safe in your relationship?: Yes Female Reproductive History Menstrual control method: permanent sterilization (BTL approx 4 years ago) History History 1 Para 1 Hx # Term Pregnancies Multiple births Hx # Pregnancies Ectopic pregnancies AB induced Hx Number of Living Children AB spontaneous Meds Home Medications Medication Instructions Recorded Confirmed Type ibuprofen 600 mg PO TID #15 tab 09/15/18 02/19/19 Rx fluoxetine 40 mg capsule 60 mg PO DAILY cap 01/05/19 02/19/19 History levothyroxine 25 mcg tablet 25 mcg PO DAILY 01/05/19 02/19/19 History medroxyprogesterone 10 mg tablet 10 mg PO DAILY #10 tab 01/05/19 02/19/19 Rx meclizine 25 mg PO TID PRN #14 tab 02/19/19 Rx Allergies Allergy/AdvReac Type Severity Reaction Status Date / Time oxycodone [From Percocet] Allergy Severe Anaphylaxsi Verified 03/17/19 10:33 s Exam Narrative Exam Narrative: GEN: appears in mild distress, obese femal HEENT: NCAT, MMM NECK: normal flexion/extension, no nuchal rigidity CV: RRR, nl s1 and S2 LUNG: normal WOB, CTAb ABD: NABS, obese, soft NEURO: AAOX3, CNII-XII intact, EOMI, PERRL, normal range of motion in all extremities Results Labs : 03/17/19 10:05 03/17/19 10:05 Laboratory Results - last 24 hr 03/17/19 03/17/19 03/17/19 10:05 10:05 10:05 WBC 6.36 RBC 4.04 Hgb 12.3 Hct 36.3 MCV 89.9 MCH 30.4 MCHC 33.9 RDW 13.3 Plt Count 227 MPV 10.3 Immature Gran % 0.2 Neutrophils % 54.0 Lymphocytes % 30.8 Monocytes % 11.8 Eosinophils % 2.7 Basophils % 0.5 Absolute Neutrophils 3.44 Absolute Lymphocytes 1.96 Absolute Monocytes 0.75 H Absolute Eosinophils 0.17 Absolute Basophils 0.03 PT 9.4 INR 0.9 APTT 22.5 Sodium 138 Potassium 3.9 Chloride 104 Carbon Dioxide 24.9 Anion Gap 9.1 BUN 7 Creatinine 0.63 Estimated GFR/1.73 m2 >= 60.00 Glucose 104 H Calcium 8.6 Magnesium 1.8 Total Bilirubin 0.3 AST 50 H ALT 95 H Alkaline Phosphatase 80 Total Protein 7.3 Albumin 3.7 Urine Color Urine Clarity Urine pH Ur Specific [place] Urine Protein Urine Ketones Urine Blood Urine Nitrite Urine Bilirubin Urine Urobilinogen Ur Leukocyte Esterase Urine Glucose 03/17/19 10:35 WBC RBC Hgb Hct MCV MCH MCHC RDW Plt Count MPV Immature Gran % Neutrophils % Lymphocytes % Monocytes % Eosinophils % Basophils % Absolute Neutrophils Absolute Lymphocytes Absolute Monocytes Absolute Eosinophils Absolute Basophils PT INR APTT Sodium Potassium Chloride Carbon Dioxide Anion Gap BUN Creatinine Estimated GFR/1.73 m2 Glucose Calcium Magnesium Total Bilirubin AST ALT Alkaline Phosphatase Total Protein Albumin Urine Color Yellow Urine Clarity Clear Urine pH 7.0 Ur Specific [place] 1.015 Urine Protein Negative Urine Ketones Negative Urine Blood Negative Urine Nitrite Negative Urine Bilirubin Negative Urine Urobilinogen 0.2 Ur Leukocyte Esterase Negative Urine Glucose Negative Last Vital Signs Temp 37.1 C 03/17/19 11:38 Pulse 82 03/17/19 11:38 Resp 20 03/17/19 10:41 BP 139/89 03/17/19 11:38 Pulse Ox 97 03/17/19 11:38
[2019-03-17 15:40] VITALS: BP 139/89; PULSE 82; RESP 20; TEMP 37.1; O2SAT 97
[2019-03-17 15:49] VITALS: BP 128/63; PULSE 77; RESP 21; TEMP 37.2; O2SAT 97
[2019-03-17] MEDS: Acetaminophen 500 MG TAB 1000 MG PO (18:48)
[2019-03-17] MEDS: Meclizine 25 MG TAB PO (18:49)
[2019-03-17 23:37] VITALS: BP 129/88; PULSE 94; RESP 20; TEMP 36.2; O2SAT 98
[2019-03-18] MEDS: Levothyroxine 25 MCG TAB PO (06:10)
[2019-03-18] MEDS: Ketorolac 30 MG/ML VIAL (07:03)
[2019-03-18] MEDS: Normal Saline Flush 10 ML SYR IVP ×2 (07:03→11:04)
[2019-03-18] MEDS: Ondansetron 4 MG/2 ML VIAL (07:03)
[2019-03-18 07:15] VITALS: BP 135/93; PULSE 86; RESP 18; TEMP 37.1; O2SAT 94
[2019-03-18] MEDS: FLUoxetine 20 MG CAP 60 MG PO (07:43)
[2019-03-18] MEDS: Acetaminophen 500 MG TAB 1000 MG PO (07:43)
[2019-03-18 08:35] VITALS: BP 121/83; PULSE 86
--- NOTE | 2019-03-18 10:50 | DI.RAD_ITS ---
SYMPTOM/DIAGNOSIS: LUMBAR RADICULOPATHY LUMBOSACRAL SPINE: Seven views were obtained. There is a slight left convex lumbar scoliosis. There is mild disc space narrowing at L 5-S 1. Otherwise intervertebral disc spaces are fairly well maintained. Mild endplate hypertrophic spurring and facet hypertrophic spurring noted. No evidence of spondylolysis or spondylolisthesis. CONCLUSION: Mild degenerative changes of the lumbar spine.
[2019-03-18] MEDS: Prochlorperazine 10 MG/2 ML VIAL IVP (11:03)
--- NOTE | 2019-03-18 11:16 | DI.VRAD_ITS ---
EXAM: XR Lumbosacral Spine, 4 or 5 Views EXAM DATE/TIME: 03/18/2019 10:13 AM CLINICAL HISTORY: 33 years old, female; Signs and symptoms; Other: Lumbar radiculopathy TECHNIQUE: Imaging protocol: XR of the lumbosacral spine, 4 or 5 views. COMPARISON: No relevant prior studies available. FINDINGS: Vertebral body heights are intact. Alignment is maintained. The pedicles appear intact. No pars defect is identified. No acute fracture is identified. There is mild multilevel facet arthrosis, disc space narrowing and marginal osteophyte formation. IMPRESSION: Mild degenerative disk disease which could be better evaluated by means of MRI as clinically indicated. Dictated and Authenticated by: Roc Adams MD. Ordering:JOSE F Kennedy MD
[2019-03-18 12:14] LABS: ALT 107 U/L (12-78); AST 49 U/L (15-37); Albumin 3.4 g/dL (3.4-5.0); Alkaline Phosphatase 75 U/L (46-116); Anion Gap 10.5 mmol/L (3-11); BUN 9 mg/dL (7-18); Bilirubin, Direct 0.07 mg/dL (0.00-0.20); Bilirubin, Total 0.3 mg/dL (0.2-1.0); CO2 23.5 mmol/L (21.0-32.0); CREATININE 0.69 mg/dL (0.55-1.02); Calcium 8.4 mg/dL (8.5-10.1); Chloride 103 mmol/L (98-107); Glucose 106 mg/dL (70-100); Magnesium 1.9 mg/dL (1.8-2.4); Potassium 3.6 mmol/L (3.5-5.1); Sodium 137 mmol/L (136-145); Total Protein 7.1 g/dL (6.4-8.2)
--- NOTE | 2019-03-18 15:35 | DSE_ITS ---
Date of service: 03/18/19 Time of Service: 15:35 DS: Diagnosis Discharge Diagnosis (1) Vertigo: Status: Acute (2) Headache: Status: Acute (3) Transaminitis: Status: Acute (4) Weakness of right lower extremity: Status: Acute (5) Obesity, morbid, BMI 50 or higher: Status: Acute (6) Ambulatory dysfunction: Status: Acute Discharge Plan Disposition Patient Disposition: AGAINST MEDICAL ADVICE Condition: Stable Discharge Details Reason For Visit: INTRACTABLE HEADACHE Admit Date/Time: 03/17/19 14:37 Admit Provider: Tiburcio Ruiz Attending Provider: Tiburcio Ruiz Primary Care Provider: Leora Ortega Hospital Course Hospital Course: Ms Greenwood is a 33 year old female with PMHx of Vertigo, hypothyroidism, PTSD and depression, observed on [facility] hospitalist service from 03/17/19 to 03/18/19 for intractable headache and dizziness accompanied by nausea/vomiting, with question of recurrent vertigo vs migraine. Additionally, I feel her sx could be due to pseudotumor cerebri, but she has not had a neurology evaluation yet that I can see. She underwent an MRI of the brain on 03/17/19 with and without contrast - this was negative for an aucoustic neuroma or any other lesion. She was treated with NSAIDs and antiemetics as well as prn dilaudid. She also received a dose of decadron in the ED as well as lorazepam. On 03/18, the patient described improvement of her symptoms - however, she still did vomit twice and now started to endorse RLE giving out, numbness and weakness, which she had never had before. 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 I am giving her a script for a walker and recommend that she follow up with her PCP and with neurology as outpatient. I do feel the patient would have benefited from staying at the hospital until she was no longer vomiting for at least 8 hours and was seen by PT. The patient verbalized und erstanding of this to me and spoke with case management as well. She is leaving [place] with a walker anyway. Home Meds and New Rx's Prescriptions: No Action fluoxetine [Prozac] 40 mg capsule 60 mg PO DAILY RF: 0 medroxyprogesterone [Provera] 10 mg tablet 10 mg PO DAILY Qty: 10 RF: 0 meclizine 25 mg tablet 25 mg PO TID PRN (Reason: dizziness) Qty: 14 RF: 0 levothyroxine 50 mcg Tablet 50 mcg PO DAILY RF: 0 albuterol sulfate 90 mcg/actuation Hfa Aerosol Inhaler 2 puff Inhalation PRN PRNRF: 0 Discharge Instructions Additional Instructions: Return to the ED if you feel like your symptoms cannot be controlled at home. Follow up with your PCP as soon as possible. Neurology referral is being placed. Referrals: Leora Ortega [Primary Care Provider] - Edna Sierra MD [ [facility] STAFF PHYSICIAN] - (vertigo, migraines) Activity:: Activity as Tolerated Equipment/Supplies:: Walker Diet:: As Tolerated Discharge Orders Discharge Orders: Discharge Order (Routine); Ordered 03/18/19 Ordered By: Marcia Lala Exam Narrative Exam Narrative: General: Obese female, A&Ox3, pleasant, appears tired HEENT: EOMI, MMM Heart: RRR, no m/r/g Lungs: CTAB GI: abdomen is soft, nontender, nondistended Extremities: obese, no pitting edema, clubbing or cyanosis DS: Data Vitals/I&O Vitals and I&O: Vital Signs Temperature 37.1 C 03/18/19 07:15 Temperature Source Tympanic 03/18/19 07:15 Pulse 86 03/18/19 08:35 Pulse Rhythm Regular 03/18/19 08:03 Respiratory Rate 18 03/18/19 07:15 Respiratory Effort 03/18/19 08:03 Respiratory Depth Shallow 03/18/19 08:03 Respiratory Pattern Normal 03/18/19 08:03 Blood Pressure 121/83 03/18/19 08:35 Pulse Oximetry 94 L 03/18/19 07:15 Oxygen Delivery Method Room Air 03/18/19 07:15 Oxygen Flow Rate 0 03/18/19 07:15 Pain Level 8 03/18/19 07:43 Intake & Output 03/17/19 03/18/19 03/18/19 23:59 11:59 23:59 Intake Total 1000 / 2000 480 / 480 Output Total 650 / 650 1700 / 1700 Balance 350 / 1350 -1220 / -1220 Weight 120.6 kg Intake: IV 999 / 1999 30 / 30 Oral 450 / 450 Output: Urine 650 / 650 1550 / 1550 Emesis 150 / 150 Other: Urine Color Yellow Yellow Urine Appearance Clear Clear Urine Odor None Emesis Description Clear/Water Gastric Occult Blood Negative Voiding Methods Bedside Commode Completed studies during hospitalization [Text1]: MRI brain w/wo contrast 03/17/19: No evidence of mass lesion or enhancing lesion in the region of the cerebellopontine angles or elsewhere in the brain. The examination was somewhat limited to motion. XR lumbar spine 03/18/19; Mild degenerative disk disease which could be better evaluated by means of MRI as clinically indicated. Labs on day of discharge: Labs from last 24 hours 03/18/19 03/18/19 11:30 10:14 Sodium 137 Potassium 3.6 Chloride 103 Carbon Dioxide 23.5 Anion Gap 10.5 BUN 9 Creatinine 0.69 Estimated GFR/1.73 m2 >= 60.00 Glucose 106 H Calcium 8.4 L Magnesium 1.9 Total Bilirubin 0.3 Cancelled Conjugated Bilirubin 0.07 Cancelled AST 49 H Cancelled ALT 107 H Cancelled Alkaline Phosphatase 75 Cancelled Total Protein 7.1 Cancelled Albumin 3.4 Cancelled PFSH Medical History PTSD (post-traumatic stress disorder) (Chronic) Depression (Chronic) Hypothyroid (Chronic) Surgical History S/P bilateral breast reduction (Acute) History of delivery (Inactive) Tubal ligation status (Inactive) Family History Father Thyroid disorder Cirrhosis Mother Cirrhosis Social History Smoking/Tobacco Use Status: Former Tobacco Use Alcohol Intake: never Drug use: Never Do you feel safe at home: Yes Do you feel safe in your relationship?: Yes Female Reproductive History Menstrual control method: permanent sterilization (BTL approx 4 years ago) History History 1 Para 1 Hx # Term Pregnancies Multiple births Hx # Pregnancies Ectopic pregnancies AB induced Hx Number of Living Children AB spontaneous
== END 2019-03-18 16:07 | disposition left against medical advice (07) ==
LOC: ER 14:59 → MS 15:50
PROVIDERS: Admitting Provider Internal Medicine; Emergency Provider Emergency Medicine; PCP Nurse Practitioner; Visit Provider Internal Medicine
DX: R42 Dizziness and giddiness (principal); Z53.21 Procedure and treatment not carried out due to patient leaving prior to being seen by health care provider; R51 Headache; R74.0 Nonspecific elevation of levels of transaminase and lactic acid dehydrogenase [LDH]; R20.0 Anesthesia of skin; R53.1 Weakness; E66.01 Morbid (severe) obesity due to excess calories; Z68.43 Body mass index [BMI] 50.0-59.9, adult; R26.9 Unspecified abnormalities of gait and mobility; E03.9 Hypothyroidism, unspecified
CPT/HCPCS: 36415; 70553; 80048; 80053; 80076; 81025; 96361; 96374; 96375; 96376; 99217; 99219; 99285; 72110; 81003; 83735; 85025; 85610; 85730; 99284; G0378; J0780; J1100; J1885; J2060; J2405

== ENCOUNTER 2019-03-22 10:27 | Emergency (ER) | payer MEDICAID, SELFPAY ==
[2019-03-22 10:36] VITALS: BP 150/101; PULSE 50; RESP 16; TEMP 36.7; O2SAT 100
--- NOTE | 2019-03-22 11:00 | DI.CT_ITS ---
SYMPTOMS/DIAGNOSIS: HEADACHE, BLURRY VISION, VERTIGO, ? ACUTE PROCESS CT BRAIN: Noncontrast examination. Comparison is 02/19/19. There is normal trivedi-white matter differentiation. No intracranial hemorrhage, acute midline shift or mass effect is identified. There is a small mucus retention cyst or polyp seen in the left maxillary sinus, which is unchanged. The visualized paranasal sinuses are otherwise clear. No fluid levels are seen. The mastoid air cells are well pneumatized. The calvarium is intact. IMPRESSION: No acute intracranial process. The findings were discussed with the Emergency Department on the date of the examination.
--- NOTE | 2019-03-22 11:04 | ED.GENADUL_ITS ---
Discharge Plan Disposition Patient Disposition: HOME Condition: Improving Discharge Details Chief Complaint: Headache Clinical Impression: Headache, Extremity pain, Radiculopathy, Paresthesia Primary Care Provider: Syeda Sanches ED Provider: Jacqueline Cuevas Home Meds and New Rx's Prescriptions: New prochlorperazine maleate [Compazine] 10 mg tablet 10 mg PO TID PRN (Reason: nausea and vomiting) Qty: 10 RF: 0 Continued fluoxetine [Prozac] 40 mg capsule 60 mg PO DAILY RF: 0 medroxyprogesterone [Provera] 10 mg tablet 10 mg PO DAILY Qty: 10 RF: 0 meclizine 25 mg tablet 25 mg PO TID PRN (Reason: dizziness) Qty: 14 RF: 0 levothyroxine 50 mcg Tablet 50 mcg PO DAILY RF: 0 albuterol sulfate 90 mcg/actuation Hfa Aerosol Inhaler 2 puff Inhalation PRN PRNRF: 0 Discharge Instructions Instructions: Migraine Headache (ED), Lumbar Radiculopathy (ED), Cervical Radiculopathy (ED), General Headache (ED) Additional Instructions: Drink plenty fluids get plenty of rest. Take 50 mg of Imitrex every 2 hours x 1 to 2 doses for a total of up to 100 mg within a 24-hour period. Take the Compazine as needed and directed for any nausea or vomiting. Follow-up with your scheduled appointment with Dr. Gandhi in the neurology clinic 3C at [facility] tomorrow afternoon at 1:30pm. Return immediately to the emergency department with any worsening or new concerning symptoms. Referrals: ZACK GANDHI [ CONSULTING PHYSICIAN] - Discharge Data Discharge Physician: Jacqueline Cuevas Medical Decision Making <Jacqueline Cuevas DO - Last Filed: 03/22/19 15:21> 33-year-old female with history of obesity, PTSD, depression, hypothyroidism who presents with nausea and vomiting headache extending from the left side of her head down to the right side of her head/neck/spine/right upper and lower extremities to her ankle since 3 AM this morning and bilateral blurry vision and vertigo for the past few weeks. She is also complaining of left arm and left leg weakness that she has had over the past few days. She was admitted here 5 days ago for intractable headache and left from the floor the following day due to issues with child psychologist. Blood pressure hypertensive 150/101. Pulse 50. Remainder vitals within normal limits. Patient appears uncomfortable and is wearing glasses in a dark room in the ED. She appears to have 4/5 muscle strength in her left upper and lower extremities compared to 5/5 on the right side. No obvious cranial nerve defects. Per DC summary when patient left AMA on 03/18, patient had left prior to evaluation by neurology or consideration for an LP for possible pseudotumor cerebri. As patient is obese, complaining of headache in the setting of blurry vision, this could certainly be a possibility. She had an MRI brain on 03/17 which was negative. Due to return of her headache, will obtain a CT head to evaluate for any acute findings. Discussed with patient obtaining LP and she is agreeable. Will obtain an ocular ultrasound to evaluate optic nerve pressure prior to this. Will place an IV, bolus IV fluids, Decadron, Compazine, Benadryl and check screening labs. A bedside ocular ultrasound noted a optic nerve pressure of 3.1 mm which is within normal limits. She had no evidence of obvious papilledema on exam. 1230 -- d/w [facility] neurology Dr. Gandhi -appears consistent with likely migraine as she had no obvious papilledema with normal optic nerve diameter. Does not see indication for LP at this time. There are currently no beds available there for transfer to patient to the ER. Recommends Imitrex or 1 mg of DHE every 8 hours combined with an antiemetic. If patient is able to be dis charged home, will follow up with patient in the Neuro clinic 3C tomorrow Patient states she feels no better. Will trial Imitrex and Toradol and reassess. If she is not improved, may consider admission here for intractable headache. If she feels better, patient is agreeable to following up with Neuro clinic tomorrow. 1400 --patient feels a little better. Patient states she has not eaten much today. Will give a tray of food and reassess. Labs and imaging reviewed and unremarkable. 1500 --patient feels much better and is requesting to go home. She appears more comfortable. She was given 2 tabs of 50 mg to take every 2 hours x 1 to 2 doses for a total of 100 mg over a 24-hour period until she sees neurology tomorrow. After this was ordered, patient states she does have a prescription for Imitrex at home but will take the Imitrex. She was also given a prescription for Compazine. Care management and arrange an appointment with Dr. Gandhi for tomorrow afternoon at 1:30 PM. Patient is instructed to drink plenty fluids, get plenty of rest, and return immediately to the emergency department any worsening or concerning symptoms. Medical Records Medical records reviewed: Yes I reviewed the patient's medical records. Imaging Data Radiologic Study: Radiologist's impression: CT BRAIN: Noncontrast examination. Comparison is 02/19/19. There is normal trivedi-white matter differentiation. No intracranial hemorrhage, acute midline shift or mass effect is identified. There is a small mucus retention cyst or polyp seen in the left maxillary sinus, which is unchanged. The visualized paranasal sinuses are otherwise clear. No fluid levels are seen. The mastoid air cells are well pneumatized. The calvarium is intact. IMPRESSION: No acute intracranial process. Lab Data Lab results reviewed: Yes I reviewed the patient's lab results. Laboratory Tests Range/Units 03/22/19 03/22/19 11:10 11:10 WBC (4.4-10.8) k/cumm 8.22 RBC (4.00-5.20) m/cumm 4.22 Hgb (12.0-15.5) g/dL 13.1 Hct (36.0-46.0) % 38.1 MCV (80-95) fL 90.3 MCH (27.0-33.0) pg 31.0 MCHC (32.0-36.0) g/dL 34.4 RDW (11.7-14.6) % 13.6 Plt Count (130-400) x1000/uL 254 MPV (8.0-11.0) fL 10.6 Immature Gran % 0.4 Neutrophils % 51.3 Lymphocytes % 33.6 Monocytes % 10.2 Eosinophils % 4.1 Basophils % 0.4 Absolute Neutrophils (1.2-6.7) k/cumm 4.22 Absolute Lymphocytes (1.2-3.4) k/cumm 2.76 Absolute Monocytes (0.11-0.7) k/cumm 0.84 H Absolute Eosinophils (0.0-0.7) k/cumm 0.34 Absolute Basophils (0.0-0.2) k/cumm 0.03 Sodium (136-145) mmol/L 136 Potassium (3.5-5.1) mmol/L 4.3 Chloride (98-107) mmol/L 102 Carbon Dioxide (21.0-32.0) mmol/L 24.1 Anion Gap (3-11) mmol/L 9.9 BUN (7-18) mg/dL 11 Creatinine (0.55-1.02) mg/dL 0.64 Estimated GFR/1.73 m2 (mL/min/1.73m2) >= 60.00 Glucose (70-100) mg/dL 99 Calcium (8.5-10.1) mg/dL 8.5 <Tray Jimenez DO - Last Filed: 03/22/19 11:57> Ocular US Exam type: diagnostic Indication for exam: headache Views obtained:Left Eye transverse and longitudinal Findings and interpretations: all views were adequate. Retinal contour was norm al. Vitreous body was anechoic. Lens was well positioned. No evidence of lens dislocation or retinal detachment. Optic nerve was measured (3.1mm) and found to be less than 5mm. The patient tolerated the procedure well and there were no complications. HPI <Jacqueline Cuevas DO - Last Filed: 03/22/19 15:21> General Mode of arrival: ambulatory . Date/Time Provider Initiated Documentation: 03/22/19 10:27 . Limitations to Documentation: no limitations . Information obtained by: patient . HPI Narrative: Patient is a 33-year-old female with a history of obesity, vertigo, PTSD, depression and hypothyroidism who presents with headache, extremity pain, weakness and numbness since 3 AM. Patient was seen here 5 days ago for similar headache and vertigo and was admitted for intractable headache. She had an MRI brain at that time which was negative and left from the floor AMA due to difficulty with childcare. Today she describes that at 3 AM her headache started which radiates from her left side of her head to her right side down her neck into her spine, and right upper and right lower extremity down to her ankle. She describes it as sharp and currently 10/10. She denies any history of migraines. She also states for the past few weeks she has had bilateral blurry vision and dizziness consistent with a spinning sensation. She also states that she has left arm and leg tingling which is mainly in her left hand and fingertips and in her left foot associated with weakness and tingling. She also admits to nausea and vomiting and states she vomited 3 times today. She also admits to photophobia but denies phonophobia. She denies any known fevers, chest pain, shortness of breath or abdominal pain. She states she saw her PCP yesterday for these complaints and was given Toradol and Imitrex and was better until today. She took Aleve at home this morning. She has never seen a neurologist had a lumbar puncture for headache. She states since Wednesday she has been ambulating with a cane due to her left-sided weakness. Related Data Home Medications Medication Instructions Recorded Confirmed fluoxetine 40 mg capsule 60 mg PO DAILY cap 01/05/19 03/22/19 medroxyprogesterone 10 mg tablet 10 mg PO DAILY #10 tab 01/05/19 03/22/19 meclizine 25 mg PO TID PRN #14 tab 02/19/19 03/22/19 albuterol sulfate 2 puff INHALATION PRN PRN 03/18/19 03/22/19 levothyroxine 50 mcg PO DAILY 03/18/19 03/22/19 prochlorperazine maleate 10 mg PO TID PRN #10 tab 03/22/19 [Compazine] Previous Rx's Medication Instructions Recorded medroxyprogesterone 10 mg tablet 10 mg PO DAILY #10 tab 01/05/19 meclizine 25 mg PO TID PRN #14 tab 02/19/19 prochlorperazine maleate 10 mg PO TID PRN #10 tab 03/22/19 [Compazine] Allergies Allergy/AdvReac Type Severity Reaction Status Date / Time oxycodone [From Percocet] Allergy Severe Anaphylaxsi Verified 03/22/19 10:40 s General Stated Complaint: Headache JULIÁN: 3 Review of Systems <Jacqueline Cuevas DO - Last Filed: 03/22/19 15:21> Review of Systems All systems reviewed & are unremarkable except as noted in HPI and below Constitutional Reports as per HPI, Denies chills, Denies fever(s) and Reports headache(s) Eyes Denies blurry vision ENT Reports vertigo, Reports headache(s), Denies sore throat and Denies throat swelling Cardiovascular Denies chest pain and Denies dyspnea Respiratory Denies cough and Denies dyspnea Gastrointestinal Denies abdominal pain, Denies diarrhea and Denies vomiting Genitourinary Denies hematuria and Denies dysuria Musculoskeletal Denies back pain, Reports numbness and Reports tingling Integumentary/Breasts Denies lesions and Denies rash Neurologic Reports vertigo, Reports headache(s), Reports focal weakness, Reports numbness and Reports tingling Allergic/Immunologic Denies throat swelling PFSH <Jacqueline Cuevas DO - Last Filed: 03/22/19 15:21> Medical History PTSD (post-traumatic stress disorder) (Chronic) Depression (Chronic) Hypothyroid (Chronic) Surgical History S/P bilateral breast reduction (Acute) History of delivery (Inactive) Tubal ligation status (Inactive) Family History Father Thyroid disorder Cirrhosis Mother Cirrhosis Social History Smoking/Tobacco Use Status: Former Tobacco Use Alcohol Intake: never Drug use: Never Do you feel safe at home: Yes Do you feel safe in your relationship?: Yes Female Reproductive History Menstrual control method: permanent sterilization (BTL approx 4 years ago) History History 1 Para 1 Hx # Term Pregnancies Multiple births Hx # Pregnancies Ectopic pregnancies AB induced Hx Number of Living Children AB spontaneous Exam <Jacqueline Cuevas DO - Last Filed: 03/22/19 15:21> Const General: cooperative and other (Appears uncomfortable, wearing glasses) Orientation: alert, awake and oriented x3 HENMT Head: normal to inspection Ears: hearing grossly normal bilaterally, external ears normal and TM's normal bilaterally General nose exam: external nose normal Face and sinus: normal facial exam Mouth: oral mucosae normal Teeth and gingiva: dentition normal Throat: posterior oropharynx normal Eyes General: appearance normal, both eyes and all related structures Eyelids: eyelids normal Pupils: PERRL EOM: EOM intact bilaterally Direct ophthalmoscopy: no papilledema Neck Neck: normal visual inspection Lymphatic: no lymphadenopathy noted Chest Chest: normal inspection of the chest Resp Effort & Inspection: normal respiratory effort and able to speak in complete sentences Auscultation: clear to auscultation bilaterally Cardio Rate: regular rate Rhythm: regular rhythm GI Inspection: normal to inspection Palpation: soft, not firm, no guarding, no hepatosplenomegaly, no masses and nontender Auscultation: normal bowel sounds Back/Spine/Pelvis Back: no CVA tenderness Cervical Spine: cervical spinal tenderness Thoracic/Lumbar Spine: thoracic spinal tenderness and lumbar spinal tenderness Skin General skin exam: no rashes or lesions noted Neuro General: alert, awake and oriented x3 Cranial Nerves: CN's II-XI intact bilaterally Cognition: normal cognition Speech: speech normal Gait: normal gait Motor: muscle tone normal throughout and other Sensory Exam: no sensory deficits noted Other: Muscle strength 4/5 left upper extremity and left lower extremity. Muscle strength 5/5 right upper and lower extremities. Extrem General: normal to inspection, full ROM and normal capillary refill Psych Appearance: grossly normal Mental Status: mental status grossly normal Speech and Movement: speech and movement normal Affect: normal affect Thought Process: normal Course <Jacqueline Cuevas, DO - Last Filed: 03/22/19 15:21> Vital Signs Temperature 98.1 F 03/22/19 10:36 Pulse 50 L 03/22/19 10:36 Respiratory Rate 16 03/22/19 10:36 Blood Pressure 150/101 H 03/22/19 10:36 Pulse Oximetry 100 03/22/19 10:36 Temperature 98.1 F 03/22/19 10:36 Temperature Source Skin 03/22/19 10:36 Pulse 50 L 03/22/19 10:36 Respiratory Rate 16 03/22/19 10:36 Respiratory Effort Non-Labored 03/22/19 10:36 Blood Pressure 150/101 H 03/22/19 10:36 Blood Pressure Position Sitting 03/22/19 10:36 Pulse Oximetry 100 03/22/19 10:36 Oxygen Delivery Method Room Air 03/22/19 10:36 Oxygen Flow Rate 0 03/22/19 10:36 Pain Level 10 03/22/19 10:36
[2019-03-22] MEDS: Normal Saline 1,000 ML 1000 ML IV ×2 (11:10→13:24)
[2019-03-22] MEDS: diphenhydrAMINE 50 MG/ML VIAL 25 MG IVP (11:10)
[2019-03-22 11:20] LABS: Abs Immature Grans 0.03 k/cumm (0.0-0.09); Absolute Basophil Count 0.03 k/cumm (0.0-0.2); Absolute Eosinophil Count 0.34 k/cumm (0.0-0.7); Absolute Lymphocyte Count 2.76 k/cumm (1.2-3.4); Absolute Monocyte Count 0.84 k/cumm (0.11-0.7); Absolute Neutrophil Count 4.22 k/cumm (1.2-6.7); Basophils % 0.4; Eosinophils % 4.1; HCT 38.1 % (36.0-46.0); HGB 13.1 g/dL (12.0-15.5); Immature Grans % 0.4; Lymphocytes % 33.6; Mean Corp. HGB Concentration 34.4 g/dL (32.0-36.0); Mean Corpuscular Volume 90.3 fL (80-95); Mean Platelet Volume 10.6 fL (8.0-11.0); Monocytes % 10.2; Neutrophils % 51.3; Platelet Count 254 x1000/uL (130-400); RBC 4.22 m/cumm (4.00-5.20); RBC Distribution Width 13.6 % (11.7-14.6); White Blood Cell Count 8.22 k/cumm (4.4-10.8)
[2019-03-22] MEDS: Prochlorperazine 10 MG/2 ML VIAL IVP (11:20)
[2019-03-22] MEDS: Dexamethasone 10 MG/ML VIAL IVP (11:23)
[2019-03-22 11:30] LABS: Anion Gap 9.9 mmol/L (3-11); BUN 11 mg/dL (7-18); CO2 24.1 mmol/L (21.0-32.0); CREATININE 0.64 mg/dL (0.55-1.02); Calcium 8.5 mg/dL (8.5-10.1); Chloride 102 mmol/L (98-107); Glucose 99 mg/dL (70-100); Potassium 4.3 mmol/L (3.5-5.1); Sodium 136 mmol/L (136-145)
[2019-03-22 12:04] VITALS: BP 113/51; PULSE 65; RESP 16; O2SAT 98
[2019-03-22] MEDS: Ketorolac 30 MG/ML VIAL IVP (13:20)
[2019-03-22] MEDS: SUMAtriptan 6 MG/0.5 ML VIAL SC (13:24)
--- NOTE | 2019-03-22 14:29 | PDOC.ERCMPRO ---
Care Management Progress Note 03/22-Dr. Cuevas requested assistance with a neurology, Dr. Marin, appt at [facility] for tomorrow. Diagnosis: headaches, dizziness, blurred vision. Dr. Cuevas consulted via phone with Dr. Marin, please see provider note. Called [facility] and spoke with Alma. Alma scheduled Tawana for , 03/[address] Marin. Alma requested that the ED notes, inpatient admission note, all testing, lab work, and demographics be faxed to [phone] for which they will be once Dr. Cuevas's note is ready. Leonela, Validation Scientist will fax. Called [facility] and spoke with Irais. Irais has set up transportation. Irais stated that because it was more than 60 miles and at [facility], a prior auth from [place] [employer] needed to be completed. This CM completed the [place] Physician Referral form (and Dr. Cuevas signed) and faxed to [facility] at [phone] and marked urgent. Irais also requested that the [facility] auth form be completed for which it was. This CM faxed both the RCT auth form and the Physician referral form to [facility]. Patient given an appt card. Dr. Cuevas aware of the above appt.
--- NOTE | 2019-03-22 14:50 | CMPROGNOTE_ITS ---
Care Management Progress Note 03/22-Dr. Cuevas requested assistance with a neurology, Dr. Marin, appt at [facility] for tomorrow. Diagnosis: headaches, dizziness, blurred vision. Dr. Cuevas consulted via phone with Dr. Marin, please see provider note. Called [facility] and spoke with Alma. Alma scheduled Tawana for , 03/[address] Marin. Alma requested that the ED notes, inpatient admission note, all testing, lab work, and demographics be faxed to [phone] for which they will be once Dr. Cuevas's note is ready. Leonela, Congregational Care Pastor will fax. Called [facility] and spoke with Irais. Irais has set up transportation. Irais stated that because it was more than 60 miles and at [facility], a prior auth from [place] [employer] needed to be completed. This CM completed the [place] Physician Referral form (and Dr. Cuevas signed) and faxed to [facility] at [phone] and marked urgent. Irais also requested that the [facility] auth form be completed for which it was. This CM faxed both the RCT auth form and the Physician referral form to [facility]. Patient given an appt card. Dr. Cuevas aware of the above appt.
[2019-03-22 14:55] VITALS: BP 117/74; PULSE 80; RESP 16; TEMP 36.7; O2SAT 97
--- NOTE | 2019-03-22 14:56 | NUR.NOTE ---
has eaten a tuna sandwich, walked to bathroom steadily without cane, no longer wearing sun glasses. pain is 8/10.Nursing Note:
[2019-03-22] MEDS: SUMAtriptan 25 MG TAB (15:15)
--- NOTE | 2019-03-22 16:18 | NUR.NOTE ---
Nursing Note: Faxed to [facility] the last admission information and all the information from today's visit. Loenela Grey. F [phone]
== END 2019-03-22 15:21 | disposition home or self-care (01) ==
PROVIDERS: Emergency Provider Physician Assistant; PCP Nurse Practitioner Family
DX: R51 Headache (principal); M79.601 Pain in right arm; M79.604 Pain in right leg; M54.10 Radiculopathy, site unspecified; R20.2 Paresthesia of skin; R53.1 Weakness
CPT/HCPCS: 36415; 80048; 96361; 96372; 96374; 96375; 99284; 70450; 85025; J0780; J1100; J1200; J1885

== ENCOUNTER 2019-03-28 09:52 | Inpatient (IN) | payer MEDICAID, SELFPAY ==
[2019-03-28] VITALS (10 sets, daily range): BP systolic 113–170; BP diastolic 58–141; PULSE 68–72; RESP 16–20; TEMP 35.9–37.3; O2SAT 95–98
--- NOTE | 2019-03-28 10:09 | ED.GENADUL_ITS ---
Discharge Plan Disposition Patient Disposition: [facility] INPATIENT Condition: Stable Discharge Details Chief Complaint: Orthopedic Clinical Impression: Paralysis of left lower extremity, Paresthesia Admit Date/Time: 03/29/19 14:20 Admit Provider: Tiburcio Metcalf Attending Provider: Tiburcio Metcalf Primary Care Provider: Syeda Sanches ED Provider: Tray Jimenez Discharge Data Discharge Date/Time-TO BE ENTERED AT DEPARTURE: 03/28/19 17:29 Medical Decision Making This is a 33-year-old female with a past medical history of chronic complicated migraines, obesity, vertigo, PTSD, depression and hypothyroidism, chronic left upper extremity weakness for last few months, recent MRI that was benign on 03/17, who sees neurology at [facility], Dr. Marin. She presents today with acute left lower extremity paralysis. Patient states that yesterday she was walking with her cane when her left leg gave out and since then she has had no strength whatsoever for the left lower extremity or at the hip, and total decreased sensation from the knee down and notable decreased sensation from the groin down on the left. This is new and not chronic. She does have some chronic weakness in the left lower extremity but never like this. Exam demonstrates findings supportive of her complaint, however she does have intact patellar reflexes bilaterally and normal rectal tone but decreased perirectal sensation on the left. She has chronic weakness and tingling in her left upper extremity which appears to be constant consistent. She had a negative MRI on 03/17 here at our hospital which showed no acute process. Patient's findings are slightly atypical with the intact rectal tone, intact patellar reflex. I did contact [facility] neurology and discussed the case with Dr. Lazo. She to feels the symptoms are slightly atypical for cauda equina syndrome, but does not recommend MRI of the lumbar and thoracic spine. We will hold off on imaging of the C-spine as Dr. Lazo does not feel that this would be related, and there is no acute component with that. The MRI on 03/17 was very benign, with no evidence of acute stroke, mass-effect or abnormality at that time. Her signs and symptoms on exam at this time are clinically consistent more so with a peripheral etiology then a central intracranial etiology. She has notable improvement of her headache, and no other focal neurologic deficits systemically that her acute. 4:43 PM Patient's MRI results have returned, no evidence of acute fracture, trauma, evidence of cord compression for the thoracic or lumbar spine. CT the head is negative for any acute stroke, bleed, or abnormality. She did have an MRI on 03/17 which was benign. Repeat examination continues to demonstrate persistent neurologic findings. We did contact [facility] as this is her baseline for her normal neurology follow-up, and I spoke with Dr. Lazo, after discussing the case and the findings with her she recommends PT OT, and further neurology consult, with concern and differential including conversion disorder. Unfortunately [facility] has no bed availability and cannot accept the transfer. We did contact the [facility], I discussed the case with the neurologist there as well, they too felt the same, and have no beds available for transfer at this time. I did contact Dr. Metcalf and discussed the case with him, he agrees with the current assessment and plan and has excepted the patient for observation for potential PT OT, and neurology evaluation if available by Dr. Johns. I did discuss the case with the patient and I attempted again to ambulate her and move her and she is still demonstrates complete paralysis left lower extremity with insensate leg below the knee. Signs and symptoms appear to be inconsistent with an acute vascular etiology as her leg is warm when compared to the right, it shows no signs of diminished pulses, or absent sensation. No evidence of trauma for the knee or hip or pelvis. No abdominal pain. Signs and symptoms inconsistent with dissection, severe fracture or nerve compression, or acute stroke, especially with her intact +2 patellar reflexes bilaterally. I have extensively reviewed the treatment plan with the patient. I have addressed all patient concerns at this time. I have also discussed the plan with the admitting physician and they agree with the current assessment and plan and have agreed to assume responsibility for the patient. All parties demonstrate verbal understanding and agreement with our assessment and plan at this time. NONCONTRAST HEAD CT: Comparison is made with March,. No intracranial hemorrhage, mass or infarct is seen. The ventricles are normal in size. There is no evidence of skull fracture. There is a minimal mucus retention cyst in the left maxillary sinus. The mastoid air cells appear clear. IMPRESSION: Negative head CT. [id number]: Total DLP = 0.00 mGy-cm Ordered By: Tray Jimenez DO MRI OF THE THORACIC SPINE: The exam is limited by the patient's body habitus and motion. T1, T2, STIR and T2 3D sagittal and T2 axial sequences were performed. The marrow signal and cord signal appear normal. The intervertebral discs are intact. There is no evidence of significant disc bulging, central canal stenosis or neural foraminal narrowing. There is no evidence of a paraspinal mass. IMPRESSION: Negative MRI of the thoracic spine. MRI OF THE LUMBAR SPINE: Comparison is made with plain films dated March,. T1, T2, STIR sagittal and T1 and T2 axial sequences were performed. The marrow signal is normal. The T12-L1 through L2-3 discs show normal height and hydration. The L3-4 disc shows slight bulging. There are facet degenerative changes, greater on the right side. There is mild right neural foraminal narrowing. At L4-5, there is mild disc bulging and partial disc desiccation. There are facet degenerative changes, which are prominent on the right side, causing mild neural foraminal narrowing. There are mild left facet degenerative changes, but no significant left neural foraminal narrowing. There is mild central canal stenosis. The L5- S1 disc appears intact. There is no neural foraminal narrowing or central canal stenosis. No paraspinal masses are seen. The conus medullaris appears normal. The aorta is normal in diameter. IMPRESSION: Mild degenerative disc changes at L3-4 and L4-5. There are facet degenerative changes on the right at these levels, which cause mild neural foraminal narrowing. Ordered By: Tray Jimenez DO HPI General Date/Time Provider Initiated Documentation: 03/28/19 09:54 . HPI Narrative: This is a 33-year-old female with a past medical history of chronic complicated migraines, obesity, vertigo, PTSD, depression and hypothyroidism, chronic left upper extremity weakness for last few months, recent MRI that was benign on 03/17, who sees neurology at [facility], Dr. Marin. She has been here few times over the last 2 weeks. Recently admitted for chronic intractable headache, who left AMA, and then returned for continued symptoms, which were slime ntually treated successfully here in the ED, and then discharged home with close follow-up with neurology the next day with no significant changes to medications or changes in management. She presents today for sudden loss of strength and feeling in her left lower extremity. Patient states that yesterday she was walking with her dunlap which she uses secondary to the chronic weakness in her left lower extremity. She states that while she was walking her left leg suddenly buckled, and after that she has not been able to use it, walk, or have any sensation from the knee down. She admits to notable decrease in sensation between the hip and the knee. She denies any pain in the leg or the hip or the pelvis. She denies any severe back pain but does admit to some chronic back pain. She denies any vomiting or diarrhea but does admit to nausea from her vertigo. She does admit to being on herself this morning, which she is unsure if this was because she could not get up, or for different reason. She denies any fever or chills, IV illicit drug use, or recent trauma to her back. She denies ever having symptoms this severe before. She does have her chronic weakness and tingling in her left upper extremity. She denies any other changes or any other complaints at this time. She denies any history of stroke, or SD. Related Data Home Medications Medication Instructions Recorded Confirmed fluoxetine 40 mg capsule 60 mg PO DAILY cap 01/05/19 03/28/19 medroxyprogesterone 10 mg tablet 10 mg PO DAILY #10 tab 01/05/19 03/22/19 meclizine 25 mg PO TID PRN #14 tab 02/19/19 03/28/19 albuterol sulfate 2 puff INHALATION PRN PRN 03/18/19 03/28/19 levothyroxine 50 mcg PO DAILY 03/18/19 03/28/19 prochlorperazine maleate 10 mg PO TID PRN #10 tab 03/22/19 03/28/19 [Compazine] aspirin 81 mg PO DAILY 03/28/19 03/28/19 ibuprofen 400 mg PO BID 03/28/19 03/28/19 ranitidine HCl [Zantac] 150 mg PO BID 03/29/19 03/29/19 Previous Rx's Medication Instructions Recorded medroxyprogesterone 10 mg tablet 10 mg PO DAILY #10 tab 01/05/19 meclizine 25 mg PO TID PRN #14 tab 02/19/19 prochlorperazine maleate 10 mg PO TID PRN #10 tab 03/22/19 [Compazine] Allergies Allergy/AdvReac Type Severity Reaction Status Date / Time oxycodone [From Percocet] Allergy Severe Anaphylaxsi Verified 03/28/19 10:10 s General JULIÁN: 3 Review of Systems Review of Systems All systems reviewed & are unremarkable except as noted in HPI and below PFSH Medical History Obesity, morbid, BMI 50 or higher (Chronic) Transaminitis (Chronic) Headache (Chronic) Vertigo (Chronic) PTSD (post-traumatic stress disorder) (Chronic) Depression (Chronic) Hypothyroid (Chronic) Mixed incontinence (Acute) Nephrolithiasis (Chronic) Surgical History Amblyopia (Acute) S/P left knee surgery (Acute) S/P bilateral breast reduction (Acute) History of delivery (Inactive) Tubal ligation status (Inactive) Family History Father Thyroid disorder Cirrhosis Mother Cirrhosis Social History Smoking/Tobacco Use Status: Former Tobacco Use Alcohol Intake: never Drug use: Never Household members: friend(s) Number of Children: 3 current occupation: [employer] at [employer] Do you feel safe at home: Yes Do you feel safe in your relationship?: Yes Additional Social history: 1 kid lives with her. Female Reproductive History Menstrual control method: permanent sterilization (BTL approx 4 years ago) History History 1 Para 1 Hx # Term Pregnancies Multiple births Hx # Pregnancies Ectopic pregnancies AB induced Hx Number of Living Children AB spontaneous Exam Narrative Exam Narrative: 1.Const: Well-nourished, Well-developed, appearing stated age 2.Eyes: PERRL, no conjunctival injection, and symmetrical lids. 3.ENT: Atraumatic external nose and ears. Moist MM. Neck: Symmetric, trachea midline, No thyromegaly. 4.CVS: +S1/S2, No murmurs or gallops. Peripheral pulses 2+ and equal in all extremities. Brisk capillary refill in all extremities. Dorsalis pedis and posterior tibial pulse +2 bilaterally. 5.RESP: Unlabored respiratory effort. Clear to auscultation bilaterally. No wheezes rales or rhonchi 6.GI: Soft, Nontender/Nondistended, No hepatosplenomegaly. No guarding or rebound. 7.MSK: Normocephalic/Atraumatic, Extremities w/o deformity or ttp No cyanosis or clubbing, Normal movement of the right upper and right lower extremity. Left upper extremity demonstrates chronic weakness, slightly decreased sensation. Left lower extremity demonstrates total weakness and paralysis. No movement or strength whatsoever. Patellar reflexes are +2 bilaterally surprisingly. Sensation from the knee down demonstrates complete absence of sensation for pressure, light touch, pinprick, or stabbing. Sensation from the knee to the groin is notably reduced with only pressure being detectable, no sensation for light touch, pinprick or stabbing. Rectal exam demonstrates normal rectal tone but a subjective decrease in sensation in the left perirectal region, but normal sensation on the right. Decreased sensation which she states is chronic over the left thorax, abdomen, arm and face. 5 out of 5 strength to the left upper extremity but decreased compared to the right. No dysdiadochokinesia or dysmetria, normal movement of the left upper extremity. No significant thoracic lumbar cervical spine midline tenderness. No nuchal rigidity. 8.Skin: Warm, Dry. No rashes or lesions. 9.Neuro: card decorator II-XII grossly intact. Please see musculoskeletal for in-depth neurologic 10.Psych: (AAO) x3. Appropriate mood and affect
[2019-03-28 11:07] LABS: Abs Immature Grans 0.05 k/cumm (0.0-0.09); Absolute Basophil Count 0.02 k/cumm (0.0-0.2); Absolute Eosinophil Count 0.27 k/cumm (0.0-0.7); Absolute Lymphocyte Count 2.62 k/cumm (1.2-3.4); Absolute Neutrophil Count 4.35 k/cumm (1.2-6.7); Basophils % 0.2; Eosinophils % 3.3; HCT 39.9 % (36.0-46.0); HGB 13.6 g/dL (12.0-15.5); Immature Grans % 0.6; Lymphocytes % 32.3; Mean Corp. HGB Concentration 34.1 g/dL (32.0-36.0); Mean Corpuscular Hemoglobin 31.6 pg (27.0-33.0); Mean Corpuscular Volume 92.6 fL (80-95); Mean Platelet Volume 10.6 fL (8.0-11.0); Monocytes % 9.9; Neutrophils % 53.7; Platelet Count 223 x1000/uL (130-400); RBC 4.31 m/cumm (4.00-5.20); RBC Distribution Width 13.8 % (11.7-14.6); White Blood Cell Count 8.11 k/cumm (4.4-10.8)
[2019-03-28 11:14] LABS: ALT 213 U/L (12-78); AST 106 U/L (15-37); Albumin 3.4 g/dL (3.4-5.0); Alkaline Phosphatase 79 U/L (46-116); Anion Gap 9.6 mmol/L (3-11); BUN 9 mg/dL (7-18); Bilirubin, Total 0.2 mg/dL (0.2-1.0); CO2 25.4 mmol/L (21.0-32.0); CREATININE 0.66 mg/dL (0.55-1.02); Calcium 8.5 mg/dL (8.5-10.1); Chloride 103 mmol/L (98-107); Glucose 96 mg/dL (70-100); Potassium 4.3 mmol/L (3.5-5.1); Sodium 138 mmol/L (136-145); Total Protein 7.4 g/dL (6.4-8.2)
--- NOTE | 2019-03-28 12:35 | DI.MRI_ITS ---
SYMPTOMS/DIAGNOSIS: LEFT LOWER EXTREMITY PARALYSIS AND ANESTHESIA SINCE YESTERDAY, NO TRAUMA MRI OF THE THORACIC SPINE: The exam is limited by the patient's body habitus and motion. T1, T2, STIR and T2 3D sagittal and T2 axial sequences were performed. The marrow signal and cord signal appear normal. The intervertebral discs are intact. There is no evidence of significant disc bulging, central canal stenosis or neural foraminal narrowing. There is no evidence of a paraspinal mass. IMPRESSION: Negative MRI of the thoracic spine. MRI OF THE LUMBAR SPINE: Comparison is made with plain films dated March,. T1, T2, STIR sagittal and T1 and T2 axial sequences were performed. The marrow signal is normal. The T12-L1 through L2-3 discs show normal height and hydration. The L3-4 disc shows slight bulging. There are facet degenerative changes, greater on the right side. There is mild right neural foraminal narrowing. At L4-5, there is mild disc bulging and partial disc desiccation. There are facet degenerative changes, which are prominent on the right side, causing mild neural foraminal narrowing. There are mild left facet degenerative changes, but no significant left neural foraminal narrowing. There is mild central canal stenosis. The L5- S1 disc appears intact. There is no neural foraminal narrowing or central canal stenosis. No paraspinal masses are seen. The conus medullaris appears normal. The aorta is normal in diameter. IMPRESSION: Mild degenerative disc changes at L3-4 and L4-5. There are facet degenerative changes on the right at these levels, which cause mild neural foraminal narrowing.
--- NOTE | 2019-03-28 14:43 | DI.CT_ITS ---
SYMPTOMS/DIAGNOSIS: LEFT LEG PARALYSIS NONCONTRAST HEAD CT: Comparison is made with March,. No intracranial hemorrhage, mass or infarct is seen. The ventricles are normal in size. There is no evidence of skull fracture. There is a minimal mucus retention cyst in the left maxillary sinus. The mastoid air cells appear clear. IMPRESSION: Negative head CT.
[2019-03-28] MEDS: methylPREDNISolone SUCC 125 MG VIAL IVP (16:55)
[2019-03-28] MEDS: Ketorolac 30 MG/ML VIAL IVP (17:00)
[2019-03-28] MEDS: Prochlorperazine 10 MG/2 ML VIAL IVP (17:07)
[2019-03-28] MEDS: ACETAMINOPHEN 1,000 MG/100 ML BTL 400 MG IVPB (17:10)
--- NOTE | 2019-03-28 18:05 | W.PM.HP.N ---
Date of service: 03/28/19 Time of Service: 18:06 Assessment and Plan (1) Paralysis of left lower extremity: Current visit: Yes Status: Acute Somewhat atypical presentation and symptoms - not consistent with trauma, and imaging ruled out any spinal pathology. Recent MRI Brain negative. Plan will be for neurology consult in the morning when available with PT/OT evaluation as well. History of Present Illness Chief Complaint: LLE Weakness Narrative: 33-year-old woman with a past medical history significant for depression, PTSD, and chronic LUE weakness, being admitted from [facility] Emergency Department on 03/28 for LLE Paralysis. Ms. Greenwood has a prior history significant for chronic complicated migraines, morbid obesity, vertigo, PTSD, depression and hypothyroidism. She is noted to have chronic LUE weakness for last few months, was admitted earlier this month with Intractable Headaches with vomiting, and prior to leaving [facility] complained of RLE Weakness. She [place] [facility] [place] The patient presented to the ED with reported acute onset Left Lower Extremity Paralysis. She was reportedly ambulating with her cane when her LLE 'gave out', with concurrent report of loss of sensation as well. Work-up was noteworthy for essentially normal labs with the exception of chronic appearing transaminitis (although with LFTs worse than prior), normal head CT, and mild right sided L3-5 neural foraminal narrowing without evidence of stenosis by MRI of the lumbar and thoracic spine. Her exam was notable for decreased sensation, but with an intact patellar reflexes and normal rectal tone in the ED. MRI of the brain from 03/17 was reviewed and negative as well. [facility] [place] reportedly believing symptoms to be atypical for Cauda Equina Syndrome, essentially ruled out by MRI, with differential including a Conversion Disorder. Recommendations were for PT/OT and further neurology evaluation. Ms. Greenwood was admitted for further evaluation and treatment. [facility] Medical History Obesity, morbid, BMI 50 or higher (Chronic) Transaminitis (Chronic) Headache (Chronic) Vertigo (Chronic) PTSD (post-traumatic stress disorder) (Chronic) Depression (Chronic) Hypothyroid (Chronic) Surgical History S/P bilateral breast reduction (Acute) History of delivery (Inactive) Tubal ligation status (Inactive) Family History Father Thyroid disorder Cirrhosis Mother Cirrhosis Social History Smoking/Tobacco Use Status: Former Tobacco Use Alcohol Intake: never Drug use: Never Do you feel safe at home: Yes Do you feel safe in your relationship?: Yes Female Reproductive History Menstrual control method: permanent sterilization (BTL approx 4 years ago) History History 1 Para 1 Hx # Term Pregnancies Multiple births Hx # Pregnancies Ectopic pregnancies AB induced Hx Number of Living Children AB spontaneous Meds Home Medications Medication Instructions Recorded Confirmed Type fluoxetine 40 mg capsule 60 mg PO DAILY cap 01/05/19 03/28/19 History medroxyprogesterone 10 mg tablet 10 mg PO DAILY #10 tab 01/05/19 03/22/19 Rx meclizine 25 mg PO TID PRN #14 tab 02/19/19 03/28/19 Rx albuterol sulfate 2 puff INHALATION PRN PRN 03/18/19 03/28/19 History levothyroxine 50 mcg PO DAILY 03/18/19 03/28/19 History prochlorperazine maleate 10 mg PO TID PRN #10 tab 03/22/19 03/28/19 Rx [Compazine] aspirin 81 mg PO DAILY 03/28/19 03/28/19 History ibuprofen 400 mg PO BID 03/28/19 03/28/19 History Allergies Allergy/AdvReac Type Severity Reaction Status Date / Time oxycodone [From Percocet] Allergy Severe Anaphylaxsi Verified 03/28/19 10:10 s Exam Narrative Exam Narrative: General: Patient appears comfortable, AAOX3, NAD Neck: Supple CV: Regular, nontachycardic, S1S2, No rubs, murmurs, or gallops. Pulmonary: Clear to auscultation bilaterally, no crackles, wheezing, or rhonchi Abdomen: + Bowel Sounds, soft, nontender, nondistended Vascular: No lower extremity edema Neurologic: LLE without sensation, total paralysis Psych: Normal mood and affect. Results Labs : 03/28/19 10:55 03/28/19 10:55 Laboratory Results - last 24 hr 03/28/19 03/28/19 10:55 10:55 WBC 8.11 RBC 4.31 Hgb 13.6 Hct 39.9 MCV 92.6 MCH 31.6 MCHC 34.1 RDW 13.8 Plt Count 223 MPV 10.6 Immature Gran % 0.6 Neutrophils % 53.7 Lymphocytes % 32.3 Monocytes % 9.9 Eosinophils % 3.3 Basophils % 0.2 Absolute Neutrophils 4.35 Absolute Lymphocytes 2.62 Absolute Monocytes 0.80 H Absolute Eosinophils 0.27 Absolute Basophils 0.02 Sodium 138 Potassium 4.3 Chloride 103 Carbon Dioxide 25.4 Anion Gap 9.6 BUN 9 Creatinine 0.66 Estimated GFR/1.73 m2 >= 60.00 Glucose 96 Calcium 8.5 Total Bilirubin 0.2 AST 106 H ALT 213 H Alkaline Phosphatase 79 Total Protein 7.4 Albumin 3.4 Last Vital Signs Temp 36.7 C 03/28/19 13:22 Pulse 68 03/28/19 15:04 Resp 20 03/28/19 13:22 BP 113/58 L 03/28/19 15:04 Pulse Ox 96 03/28/19 15:04
--- NOTE | 2019-03-28 18:19 | HPE_ITS ---
Date of service: 03/28/19 Time of Service: 18:06 Assessment and Plan (1) Paralysis of left lower extremity: Current visit: Yes Status: Acute Somewhat atypical presentation and symptoms - not consistent with trauma, and imaging ruled out any spinal pathology. Recent MRI Brain negative. Plan will be for neurology consult in the morning when available with PT/OT evaluation as well. History of Present Illness Chief Complaint: LLE Weakness Narrative: 33-year-old woman with a past medical history significant for depression, PTSD, and chronic LUE weakness, being admitted from [facility] Emergency Department on 03/28 for LLE Paralysis. Ms. Greenwood has a prior history significant for chronic complicated migraines, morbid obesity, vertigo, PTSD, depression and hypothyroidism. She is noted to have chronic LUE weakness for last few months, was admitted earlier this month with Intractable Headaches with vomiting, and prior to leaving [facility] complained of RLE Weakness. She follows with Neurology at [facility], Dr. Marin. The patient presented to the ED with reported acute onset Left Lower Extremity Paralysis. She was reportedly ambulating with her cane when her LLE 'gave out', with concurrent report of loss of sensation as well. Work-up was noteworthy for essentially normal labs with the exception of chronic appearing transaminitis (although with LFTs worse than prior), normal head CT, and mild right sided L3-5 neural foraminal narrowing without evidence of stenosis by MRI of the lumbar and thoracic spine. Her exam was notable for decreased sensation, but with an intact patellar reflexes and normal rectal tone in the ED. MRI of the brain from 03/17 was reviewed and negative as well. [facility] neurology was consulted, reportedly believing symptoms to be atypical for Cauda Equina Syndrome, essentially ruled out by MRI, with differential including a Conversion Disorder. Recommendations were for PT/OT and further neurology evaluation. Ms. Greenwood was admitted for further evaluation and treatment. [facility] Medical History Obesity, morbid, BMI 50 or higher (Chronic) Transaminitis (Chronic) Headache (Chronic) Vertigo (Chronic) PTSD (post-traumatic stress disorder) (Chronic) Depression (Chronic) Hypothyroid (Chronic) Surgical History S/P bilateral breast reduction (Acute) History of delivery (Inactive) Tubal ligation status (Inactive) Family History Father Thyroid disorder Cirrhosis Mother Cirrhosis Social History Smoking/Tobacco Use Status: Former Tobacco Use Alcohol Intake: never Drug use: Never Do you feel safe at home: Yes Do you feel safe in your relationship?: Yes Female Reproductive History Menstrual control method: permanent sterilization (BTL approx 4 years ago) History History 1 Para 1 Hx # Term Pregnancies Multiple births Hx # Pregnancies Ectopic pregnancies AB induced Hx Number of Living Children AB spontaneous Meds Home Medications Medication Instructions Recorded Confirmed Type fluoxetine 40 mg capsule 60 mg PO DAILY cap 01/05/19 03/28/19 History medroxyprogesterone 10 mg tablet 10 mg PO DAILY #10 tab 01/05/19 03/22/19 Rx meclizine 25 mg PO TID PRN #14 tab 02/19/19 03/28/19 Rx albuterol sulfate 2 puff INHALATION PRN PRN 03/18/19 03/28/19 History levothyroxine 50 mcg PO DAILY 03/18/19 03/28/19 History prochlorperazine maleate 10 mg PO TID PRN #10 tab 03/22/19 03/28/19 Rx [Compazine] aspirin 81 mg PO DAILY 03/28/19 03/28/19 History ibuprofen 400 mg PO BID 03/28/19 03/28/19 History Allergies Allergy/AdvReac Type Severity Reaction Status Date / Time oxycodone [From Percocet] Allergy Severe Anaphylaxsi Verified 03/28/19 10:10 s Exam Narrative Exam Narrative: General: Patient appears comfortable, AAOX3, NAD Neck: Supple CV: Regular, nontachycardic, S1S2, No rubs, murmurs, or gallops. Pulmonary: Clear to auscultation bilaterally, no crackles, wheezing, or rhonchi Abdomen: + Bowel Sounds, soft, nontender, nondistended Vascular: No lower extremity edema Neurologic: LLE without sensation, total paralysis Psych: Normal mood and affect. Results Labs : 03/28/19 10:55 03/28/19 10:55 Laboratory Results - last 24 hr 03/28/19 03/28/19 10:55 10:55 WBC 8.11 RBC 4.31 Hgb 13.6 Hct 39.9 MCV 92.6 MCH 31.6 MCHC 34.1 RDW 13.8 Plt Count 223 MPV 10.6 Immature Gran % 0.6 Neutrophils % 53.7 Lymphocytes % 32.3 Monocytes % 9.9 Eosinophils % 3.3 Basophils % 0.2 Absolute Neutrophils 4.35 Absolute Lymphocytes 2.62 Absolute Monocytes 0.80 H Absolute Eosinophils 0.27 Absolute Basophils 0.02 Sodium 138 Potassium 4.3 Chloride 103 Carbon Dioxide 25.4 Anion Gap 9.6 BUN 9 Creatinine 0.66 Estimated GFR/1.73 m2 >= 60.00 Glucose 96 Calcium 8.5 Total Bilirubin 0.2 AST 106 H ALT 213 H Alkaline Phosphatase 79 Total Protein 7.4 Albumin 3.4 Last Vital Signs Temp 36.7 C 03/28/19 13:22 Pulse 68 03/28/19 15:04 Resp 20 03/28/19 13:22 BP 113/58 L 03/28/19 15:04 Pulse Ox 96 03/28/19 15:04
[2019-03-28] MEDS: Ibuprofen 400 MG TAB PO (19:31)
[2019-03-28] MEDS: Enoxaparin 40 MG/0.4 ML SYR SC (19:31)
[2019-03-28] MEDS: Normal Saline 1,000 ML 75 ML IV (19:32)
[2019-03-29] MEDS: Levothyroxine 50 MCG TAB PO (05:27)
[2019-03-29 07:10] VITALS: BP 139/79; PULSE 82; RESP 18; TEMP 36.6; O2SAT 97
--- NOTE | 2019-03-29 08:35 | PDOC.CMIN ---
- If Service Date Differs Date of service: 03/29/19 Time of Service: 08:35 Care Management Initial Assess REASON FOR HOSPITALIZATION:: Paralysis of left lower extremity PAST MEDICAL HISTORY/PAST SURGICAL HISTORY:: obesity, morbid, BMI 50 or higher (Chronic). Transaminitis (Chronic). Headache (Chronic). Vertigo (Chronic). PTSD (post-traumatic stress disorder) (Chronic). Depression (Chronic). Hypothyroid (Chronic). S/P bilateral breast reduction (Acute). History of delivery (Inactive). Tubal ligation status (Inactive PREVIOUS FUNCTIONAL STATUS/SOCIAL/FAMILY SUPPORTS:: Tawana resides in [facility] with her 3 yo son Maxwell. She reports that she has a 12 y/o son, however he is not in her custody at this time. Tawana is unemployed at this time, and states that she uses [employer] for transportation. She has a sister whom resides 45 minutes out of town, however is able to assist with support with her son Maxwell while she is hospitalized. CURRENT FUNCTIONAL STATUS:: Currently Tawana is lying in bed. She is receptive to discussion, and easily engages in interaction. ADVANCE DIRECTIVES:: None on file Has patient been provided with information about the portal?: Yes Did the patient sign up for the portal?: No CODE STATUS:: Full Code INSURANCE COVERAGE / FINANCIAL ISSUES:: JOVANY CURRENT HOME/COMMUNITY SERVICES/EQUIPMENT:: Currently Tawana has services through [facility]. She sees Amarilys Machado as well as Vijay Luo as a therapist through [facility]. Tawana reports that her sons daycare is also very supportive and transports him to and from daycare PRIMARY CARE PHYSICIAN:: Syeda Sanches POTENTIAL DISCHARGE NEEDS:: F/U appt with PCP. F/U with [facility] providers. PT - would like home health PT if needed. CCC - interested in CCC through [facility] PATIENT/FAMILY EDUCATION NEEDS:: Review DC instructions, any limitations, and ongoing DC planning discussion. Discuss ?Ask Me Three? ANTICIPATED BARRIERS TO DISCHARGE:: None identified at this time TRANSPORTATION:: Via [facility] when ready PLAN:: Tawana will return home with ? home health PT once medically cleared. She will F/U with PCP, [facility] providers, and plan of care as prescribed. CM to contact [facility] CCC in regards to referral. RCT to transport when ready.
[2019-03-29] MEDS: FLUoxetine 20 MG CAP 60 MG PO (08:43)
--- NOTE | 2019-03-29 08:43 | INITIAL_ITS ---
- If Service Date Differs Date of service: 03/29/19 Time of Service: 08:35 Care Management Initial Assess REASON FOR HOSPITALIZATION:: Paralysis of left lower extremity PAST MEDICAL HISTORY/PAST SURGICAL HISTORY:: obesity, morbid, BMI 50 or higher (Chronic). Transaminitis (Chronic). Headache (Chronic). Vertigo (Chronic). PTSD (post-traumatic stress disorder) (Chronic). Depression (Chronic). Hypothyroid (Chronic). S/P bilateral breast reduction (Acute). History of delivery (Inactive). Tubal ligation status (Inactive PREVIOUS FUNCTIONAL STATUS/SOCIAL/FAMILY SUPPORTS:: Tawana resides in [facility] with her 3 yo son Maxwell. She reports that she has a 12 y/o son, however he is not in her custody at this time. Tawana is unemployed at this time, and states that she uses [facility] for [facility]. She has a sister whom resides 45 minutes out of town, however is able to assist with support with her son Maxwell while she is hospitalized. CURRENT FUNCTIONAL STATUS:: Currently Tawana is lying in bed. She is receptive to discussion, and easily engages in interaction. ADVANCE DIRECTIVES:: None on file Has patient been provided with information about the portal?: Yes Did the patient sign up for the portal?: No CODE STATUS:: Full Code INSURANCE COVERAGE / FINANCIAL ISSUES:: JOVANY CURRENT HOME/COMMUNITY SERVICES/EQUIPMENT:: Currently Tawana has services through [facility]. She sees Amarilys Machado as well as Vijay Luo as a therapist through [facility]. Tawana reports that her sons daycare is also very supportive and transports him to and from daycare PRIMARY CARE PHYSICIAN:: Syeda Sanches POTENTIAL DISCHARGE NEEDS:: F/U appt with PCP. F/U with [facility] providers. PT - would like home health PT if needed. CCC - interested in CCC through [facility] PATIENT/FAMILY EDUCATION NEEDS:: Review DC instructions, any limitations, and ongoing DC planning discussion. Discuss ?Ask Me Three? ANTICIPATED BARRIERS TO DISCHARGE:: None identified at this time TRANSPORTATION:: Via [facility] when ready PLAN:: Tawana will return home with ? home health PT once medically cleared. She will F/U with PCP, [facility] providers, and plan of care as prescribed. CM to contact [facility] CCC in regards to referral. RCT to transport when ready.
[2019-03-29] MEDS: Aspirin 81 MG CHEW PO (08:44)
[2019-03-29] MEDS: Ibuprofen 400 MG TAB PO ×2 (08:44→20:53)
[2019-03-29 09:40] VITALS: O2SAT 96
--- NOTE | 2019-03-29 09:45 | DI.MRI_ITS ---
SYMPTOM/DIAGNOSIS: LT LEG WEAKNESS CERVICAL SPINE MRI: MR examination of the cervical spine was performed according to the usual protocol. The examination is technically limited due to motion. There is loss of the cervical lordosis. No definite bony signal abnormality is seen. There is a large disc herniation at C 5-6 which is predominantly left paracentral. This has increased significantly in size in comparison with previous examination of 07/05/17. No other significant disc herniation identified. No significant bony central canal stenosis seen. Neural foramina are not well visualized but there is suggestion of bilateral neural foraminal narrowing at C 5-6, remaining vertebral levels show probably normal neural foramina. No intracord signal abnormality is seen. Cord deformity is noted anteriorly at C 5-6. CONCLUSION: Large left paracentral disc herniation at C 5-6 with resultant cord deformity. No intracord signal abnormality is seen. Mild bilateral neural foraminal narrowing also appears to be present at C 5-6. The findings are much more prominent than on previous MR of 07/05/17.
--- NOTE | 2019-03-29 11:19 | OT.INIE ---
Occupational Therapy Notes Inpatient Occupational Therapy Evaluation Date: 03/29/19 Referring Doctor:Tiburcio Ruiz MD OT Orders: RLE weakness Precautions: Fall, Standard PATIENT PROFILE/ADMITTING DIAGNOSIS: Pt is a 33 year old female who was recently admitted to [facility] leaving AMA about 1 week ago. She presented to the ER on 03/28/19 for paralysis of her (L) LE and weakness of her (L) UE which she has had for a couple weeks now. She underwent an MRI this morning and results are pending at this time. Past Medical History: Medical History Obesity, morbid, BMI 50 or higher (Chronic) Transaminitis (Chronic) Headache (Chronic) Vertigo (Chronic) PTSD (post-traumatic stress disorder) (Chronic) Depression (Chronic) Hypothyroid (Chronic) Surgical History S/P bilateral breast reduction (Acute) History of delivery (Inactive) Tubal ligation status (Inactive) Social History/Home Situation: Pt lives in an apartment with her three year old son and a friend. She notes that she has 3 children, the other two are not currently in her custody. She states that she enters her apartment through the back which has 1 step to enter. She states that she has been performing her functional mobility with a cane. She was given a walker at her last admission. She notes that she is (I) with all ADLs/IADLs prior admission and child rearing for her 3 year old son. She does not drive. She participates in community mobility with [facility] services. She has a tub shower but she states she has to stand to perform bathing which is increased difficulty with decreased safety awareness d/t paralysis of her (L) LE. Equipment owned/DME: FWW, Cane SUBJECTIVE: Pt was sitting in bed when OT arrived. She was agreeable to OT consult and reports that she plans to leave this afternoon and be home by the time her son gets home. She states that last time she was in the hospital she had to leave AMA because she has to be there for her son. OBJECTIVE: General Observation: IV (R) UE not connected at this time. Mental Status: A&Ox3 Pain: c/o pain in lower back but pt states that this is not abnormal for her. ROM: RUE AROM WFL L UE AROM WFL STRENGTH: RUE 4+/5 throughout globally LUE Shoulder flexion 3-/5, elbow 3/5, retort load expediter is weak but able to perform FUNCTIONAL MOBILITY/ADLS: Transfers with FWW Supine-sit Min (A) Sit-Stand CGA Stand-sit CGA BATHING Sitting in shower with max (A) Set up with vc Bathing UE (I) Bathing LE (I) DRESSING Sitting position with vc for body positioning Dressing UE (I) don and doffing hospital gown Dressing LE (I) don and doffing (R) sock and min (A) for (L) BALANCE: Static sitting Good vertigo symptoms with transition Dynamic Sitting Good Vertigo symptoms with transition Static Standing Good Dynamic Standing Fair SPECIAL TESTS: Daily Activity Limitations Standardized Measure [facility] AM -PAC ?6 clicks? Daily Activity Inpatient Short Form: Raw score: 19 Standardized score: 40.22 CMS score: 42.80% INFORMED CONSENT/EDUCATION: Pt instructed in purpose of OT Consult and plan of care. ASSESSMENT: Patient is a 33-year-old female referred to occupational therapy services with diagnosis of paralysis of the (L) LE. Patient presents with clinical signs and symptoms consistent with dx, as demonstrated by the following impairment level findings/ functional limitations: decreased functional activity tolerance, decreased (L) UE/LE ROM/strength, decreased functional mobility, decreased fine motor control of (L) UE. Pt tolerated her bathing routine with increased (I) in the shower today. She was able to functionally use her (L) UE to wash her hair (I). She did present with decreased use of (L) LE but she was able to wash it (I) in the sitting position with her (L) UE. OT recommends that pt return home with OT services for assessment of ADLs/IADLs in her home environment. AMPAC score 19, CMS score 42.80% Patient is assessed as a Moderate 42411 complexity based on the following: History: See Above Examination: See Above Presentation: Evolving Decision Making: AMPAC score 19, CMS score 42.80% GOALS Goals x1 week 1. Transfers SBA FWW 2. Dressing (I) sitting in chair 3. Bathing (I) in shower in seated position 4. Toileting (I) on toilet 5. Eating (I) 6. (I) brushing teeth and hair PLAN OF CARE/TREATMENT PLAN: 1x/day, 5 days/ week x 1week Initiate Occupational Therapy Services for bathing, dressing, grooming, toileting, eating, transfer training. DISCHARGE RECOMMENDATIONS Home with OT/PT OT recommends a shower bench and grab bars for pts bathing routine to increase pts safety and functional (I). TREATMENT TIME/MINUTES/CODES 39231, [id number] (10:10) Maddy Alvarez OTR/[facility]
--- NOTE | 2019-03-29 11:32 | PHARADMIT ---
Addendum entered by Dinorah Gongora 03/30/19 16:12: Pharmacy Note Subjective pt has cord compression, vertido, migraine,parasthesia . neurology has been consulted and tried to transfer to [facility]. conversion disorder still a possibility vs atypical migraine. CSpine imaging showing cord compression at C5-6 due to disc bulge Objective pain presently 0/10 but has been 8/10, no labs Assessment sumatriptan,doxepin, mag 1Gm IV over 20 min TID, hydroxyzine ordered. OT /PT ordered Plan follow for pain control and med changes, may need mag level ordered Original Note: Admission Pharmacy Clinical Review LOWER EXTREMITY PARASTHESIA/WEAKNESS Code Status Full Code Current Weight 117.934 kg Renally Cleared and Narrow Therapeutic Index Meds CRCL ~74ML/MIN QTc Value / Action Taken NA BP Control, Fever 139/79 AFEBRILE Electrolytes reviewed OK DVT Prophylaxis ENOXAPARIN Opiate Usage / Scheduled Bowel Regimen Ordered NO/PRN Plt/SCr for Heparin / Enoxaparin 223/0.66 INR for Warfarin NA H/H stable, WBC/Bands 13.63/39.9 WBC 8.11 Antibiotic appropriateness NA Cultures and Sensitivities NA Surgical ABX d/c within 24 hr NA DM control / Insulin Dosing NA Heart Failure (Check EF%) (ELEAZAR's, B-Block, Diuretics) NA IV to PO Switch IVF AND ZOFRAN IV Home Meds Reviewed Nonsteroidal Anti-Inflammatory Agents (Nonselective) may enhance the adverse/toxic effect of Salicylates Home Meds Not Ordered medroxyprogesterone 10 mg tablet 10 mg PO DAILY #10 tab(NOT TAKING ANYMORE CONFIRMED ONE TIME ORDER PER [facility] NURSE) ranitidine HCl [Zantac] 150 mg PO BID Comments POSSIBLE CONVERSION DISORDER??
--- NOTE | 2019-03-29 11:38 | OTIE_ITS ---
Occupational Therapy Notes Inpatient Occupational Therapy Evaluation Date: 03/29/19 Referring Doctor:Tiburcio Ruiz MD OT Orders: RLE weakness Precautions: Fall, Standard PATIENT PROFILE/ADMITTING DIAGNOSIS: Pt is a 33 year old female who was recently admitted to [facility] leaving AMA about 1 week ago. She presented to the ER on 03/28/19 for paralysis of her (L) LE and weakness of her (L) UE which she has had for a couple weeks now. She underwent an MRI this morning and results are pending at this time. Past Medical History: Medical History Obesity, morbid, BMI 50 or higher (Chronic) Transaminitis (Chronic) Headache (Chronic) Vertigo (Chronic) PTSD (post-traumatic stress disorder) (Chronic) Depression (Chronic) Hypothyroid (Chronic) Surgical History S/P bilateral breast reduction (Acute) History of delivery (Inactive) Tubal ligation status (Inactive) Social History/Home Situation: Pt lives in an apartment with her three year old son and a friend. She notes that she has 3 children, the other two are not currently in her custody. She states that she enters her apartment through the back which has 1 step to enter. She states that she has been performing her functional mobility with a cane. She was given a walker at her last admission. She notes that she is (I) with all ADLs/IADLs prior admission and child rearing for her 3 year old son. She does not drive. She participates in community mobility with [facility] services. She has a tub shower but she states she has to stand to perform bathing which is increased difficulty with decreased safety awareness d/t paralysis of her (L) LE. Equipment owned/DME: FWW, Cane SUBJECTIVE: Pt was sitting in bed when OT arrived. She was agreeable to OT consult and reports that she plans to leave this afternoon and be home by the time her son gets home. She states that last time she was in the hospital she had to leave AMA because she has to be there for her son. OBJECTIVE: General Observation: IV (R) UE not connected at this time. Mental Status: A&Ox3 Pain: c/o pain in lower back but pt states that this is not abnormal for her. ROM: RUE AROM WFL L UE AROM WFL STRENGTH: RUE 4+/5 throughout globally LUE Shoulder flexion 3-/5, elbow 3/5, superintendent pier is weak but able to perform FUNCTIONAL MOBILITY/ADLS: Transfers with FWW Supine-sit Min (A) Sit-Stand CGA Stand-sit CGA BATHING Sitting in shower with max (A) Set up with vc Bathing UE (I) Bathing LE (I) DRESSING Sitting position with vc for body positioning Dressing UE (I) don and doffing hospital gown Dressing LE (I) don and doffing (R) sock and min (A) for (L) BALANCE: Static sitting Good vertigo symptoms with transition Dynamic Sitting Good Vertigo symptoms with transition Static Standing Good Dynamic Standing Fair SPECIAL TESTS: Daily Activity Limitations Standardized Measure [facility] AM -PAC ?6 clicks? Daily Activity Inpatient Short Form: Raw score: 19 Standardized score: 40.22 CMS score: 42.80% INFORMED CONSENT/EDUCATION: Pt instructed in purpose of OT Consult and plan of care. ASSESSMENT: Patient is a 33-year-old female referred to occupational therapy services with diagnosis of paralysis of the (L) LE. Patient presents with clinical signs and symptoms consistent with dx, as demonstrated by the following impairment level findings/ functional limitations: decreased functional activity tolerance, decreased (L) UE/LE ROM/strength, decreased functional mobility, decreased fine motor control of (L) UE. Pt tolerated her bathing routine with increased (I) in the shower today. She was able to functionally use her (L) UE to wash her hair (I). She did present with decreased use of (L) LE but she was able to wash it (I) in the sitting position with her (L) UE. OT recommends that pt return home with OT services for assessment of ADLs/IADLs in her home environment. AMPAC score 19, CMS score 42.80% Patient is assessed as a Moderate 67341 complexity based on the following: History: See Above Examination: See Above Presentation: Evolving Decision Making: AMPAC score 19, CMS score 42.80% GOALS Goals x1 week 1. Transfers SBA FWW 2. Dressing (I) sitting in chair 3. Bathing (I) in shower in seated position 4. Toileting (I) on toilet 5. Eating (I) 6. (I) brushing teeth and hair PLAN OF CARE/TREATMENT PLAN: 1x/day, 5 days/ week x 1week Initiate Occupational Therapy Services for bathing, dressing, grooming, toileting, eating, transfer training. DISCHARGE RECOMMENDATIONS Home with OT/PT OT recommends a shower bench and grab bars for pts bathing routine to increase pts safety and functional (I). TREATMENT TIME/MINUTES/CODES 09457, [id number] (10:10) Maddy Alvarez OTR/[facility]
[2019-03-29] MEDS: Normal Saline 1,000 ML 75 ML IV (12:11)
[2019-03-29] MEDS: Normal Saline Flush 10 ML SYR IVP ×2 (12:21→15:52)
[2019-03-29] MEDS: Acetaminophen 325 MG TAB PO ×2 (12:41→18:07)
--- NOTE | 2019-03-29 13:20 | W.NEUROCONSU ---
Date of service: 03/29/19 Time of Service: 13:20 Assessment and Plan (1) Vertigo: Current visit: Yes Status: Chronic (2) Paralysis of left lower extremity: Current visit: Yes Status: Acute (3) Headache: Current visit: Yes Status: Chronic Ms. Greenwood is a 33-year-old, right-handed woman with a 6-week history of persistent and progressive vertigo, nausea, and vomiting with further progressive symptoms including left hemiparesis and hemianesthesia in the setting of acute on chronic headaches. Her neurological exam was significant for persistent horizontal nystagmus in the vertical gaze bilaterally, paresthesias in the left face and arm with absent sensation in the left lower extremity along with mild left upper extremity weakness and more severe left lower extremity weakness in addition to hyperreflexia and a positive left Babinski and a right Claribel reflex. Her progressive symptoms are quite worrisome. While some of her symptoms could be attributed to the C5-6 disc bulge, there is no obvious cord signal changes and these would be very atypical for this to cause a left lower extremity paralysis in addition to the face paresthesias, nystagmus, and vertigo that she is experiencing. I recommend a repeat MRI brain this time with and without contrast. I would also like an MRA head. Given the progressive nature of symptoms, a demyelinating condition is part of the differential along with ischemia. Addendum on 03/29/19 at 1820: I was able to review the MRI brain w/wo which was unremarkable. The MRA was also unremarkable, but limited by motion artifact. I have reviewed her clinical history and physical exam. -Her physical exam is complicated by functional overlay - notably sensory changes in left face and arm and left arm weakness, possibly more. -In early February, based on +Genoa-Hallpike, she most likely did have BPPV as evidenced by early response to Qing. It's not clear what the cause of her persistent vertigo. DDX includes ongoing BPPV, migraine-induced vertigo, and/or PPPV. -I suspect that the horizontal nystagmus seen on end-gaze is her normal and part of her known history of amblyopia s/p correction as a child. -The left Babinski and right Saldivar are likely secondary to the C5-6 disc bulge and spinal cord compression. It is unclear if she has any other si/sx of myelopathy given the functional overlay. -I do not have a good explanation at this time for her left leg. Acute Flaccid Paralysis/Myelitis as with polio and polio-like illnesses (WNV, coxsackievirus, etc) are typically associated with reduced reflexes (which she does not have) and is not associated with sensory findings (which she does have). The ddx includes complex migraine vs conversion disorder. At this point, I am at somewhat of a loss on how to proceed. I would repeat PT eval with Montserrat-Hallpike +/- Qing for her vertigo. We could consider LP with OP, but I think yield is low. I would aggressively treat for atypical/complex migraine. I recommend starting with IV magnesium 1gm q8hr given over 10-20min. I would also start doxepin 50mg q6hr while awake +/- 50mg hydroxyzine. I would use Compazine 5-10mg q8hr prn for breakthrough nausea, headache, or dizziness. It may be worthwhile discussing cervical spine MRI findings with [facility] and/or transfer for better quality images to determine if there is cord compression. She has clear UMN signs on exam but it's unclear if she has further symptoms due to her functional overlay. History of Present Illness Chief Complaint: weakness Narrative: Handedness: right. HPI: Ms. Greenwood is a 33-year-old woman with a past medical history of possible alcohol syndrome, learning disorder, chronic migraine headaches with and without aura, depression, PTSD, hypothyroidism, nephrolithiasis, and chronic fecal/urinary incontinence. Ms. Greenwood's story is quite complex. It seems to begin approximately 1 to 2 months ago, when she began noticing weakness in the left hemibody as well as new onset and persistent dizziness described as room spinning. The dizziness is quite constant but is worsened by eating and movements. It is present at rest. She was initially seen in the [facility] emergency room on 02/19/2019 for her vertigo. She underwent a CT head which was unremarkable. She was noted to have 2-3 beats of horizontal nystagmus in right end gaze that provoked her symptoms. She was prescribed meclizine and discharged home with an outpatient PT appointment. She was evaluated by PT on 03/03/2019 and 03/06/2019. She had a +Genoa-Hallpike on the right with upbeating nystagmus. She initially responded to Qing maneuver. However, she later endorsed episodes of vomiting, left ear tinnitus, diplopia, and headaches to PT. In addition, she was no longer able to tolerate any positional maneuvers, all of which seem to make her symptoms worse. She presented back to the emergency room on 03/17/2019 for ongoing vertiginous symptoms, emesis, headache, and gait imbalance. She underwent an MRI brain and IAC with and without contrast which was unremarkable per my review. She was admitted overnight but left the next day AMA due to childcare issues. She was treated with NSAIDs, antiemetics, PRN Dilaudid, and a dose of Decadron in the emergency room as well as lorazepam. At the time of discharge she reported new right lower extremity giving out. She presented back to the [facility] emergency room on 03/22/2019 with again persistent vertigo, nausea, vomiting, and headaches along with new pain starting in the right neck and radiating down the entire right side of her body, blurred vision, and new left arm and left leg weakness. She underwent a bedside ocular ultrasound which showed an optic nerve pressure of 3.1 mm which is considered normal limits and was interpreted as unlikely to represent IIH. She was given 1 mg of DHE plus an antiemetic with no improvement in her symptoms. She had improvement after Imitrex and Toradol. She was discharged home feeling better with follow-up at [facility] neurology the next day. She consulted with neurologist Dr. Jace Marin at [facility] on 03/23/2019. She reports headache onset since high school that briefly improved in her 20s and returned in her early 30s. Her headaches are generally left-sided and sharp associated with a visual scotoma, nausea, vomiting, photophobia, phonophobia, and kinesiophobia. At that visit, she was noting the sharp pain radiating down the right side of the body from her neck, left hemiparesis as well as new paresthesias in the left leg. On neurological exam, he noted visual acuity of 20/70 on the left and 20/50 on the right. He did not find any evidence to suggest papilledema. However, venous pulsations were not clearly seen. He noted nystagmus on lateral gaze to the right with medial drift and fast phase to the right. She noted subjective sensations of vertigo at all times. He noted 4/5 strength in the left arm and 3-4/5 strength in the left leg. She had some pain on the right side. She had slight drift and decreased fine motor movements on the left. Reflexes were 3+ in the legs with equivocal toes bilaterally. She had decreased sensation to pinprick and vibration in the left leg. He recommended a cervical spine MRI without contrast as further work-up. In addition, he performed an extensive laboratory work-up including a TSH, B12, phosphorus, Lyme, TTG antibodies, BRUNA, and SPEP all of which were unremarkable. She had ESR of 10. Her phosphorus level was low at 2.4. Anti-cardiolipin antibodies are pending. She has chronically elevated LFTs. He thought that her symptoms may be due to complicated migraine but was unclear of the diagnosis at that time. He prescribed her both Imitrex and hydroxyzine for her symptoms. She has been taking both of these 1-2 times daily with no real change in her dizziness or headaches and side effects of increased fatigue. Ms. Greenwood presented back to the [facility] emergency room on 03/28/2019. The day prior to admission, she was walking when her left leg suddenly buckled. Since then she has had no sensation from the knee down with reduced sensation in the upper leg and is unable to move the leg. She underwent a thoracic and lumbar spine MRI, both of which I was able to review. The thoracic spine is unremarkable. The lumbar spine shows mild right neuroforaminal narrowing at L3-4 and L4-5 per my review. She continues to have numbness and weakness of the left lower extremity with persistent vertigo even while at rest. Her headaches are occurring off and on but it has been essentially daily for the last 2 months. She underwent a cervical spine MRI which I was able to review. She has a large C5-6 disc bulge which is causing moderate to severe stenosis and cord impingement. I do not see any obvious cord signal changes however. Consults Requesting physician: Tiburcio Ruiz Review of Systems Review of Systems All systems reviewed & are unremarkable except as noted in HPI and below PFSH Medical History Obesity, morbid, BMI 50 or higher (Chronic) Transaminitis (Chronic) Headache (Chronic) Vertigo (Chronic) PTSD (post-traumatic stress disorder) (Chronic) Depression (Chronic) Hypothyroid (Chronic) Mixed incontinence (Acute) Nephrolithiasis (Chronic) Surgical History Amblyopia (Acute) S/P left knee surgery (Acute) S/P bilateral breast reduction (Acute) History of delivery (Inactive) Tubal ligation status (Inactive) Family History Father Thyroid disorder Cirrhosis Mother Cirrhosis Social History Smoking/Tobacco Use Status: Former Tobacco Use Alcohol Intake: never Drug use: Never Household members: friend(s) Number of Children: 3 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 Female Reproductive History Menstrual control method: permanent sterilization (BTL approx 4 years ago) History History 1 Para 1 Hx # Term Pregnancies Multiple births Hx # Pregnancies Ectopic pregnancies AB induced Hx Number of Living Children AB spontaneous Visit Medication and Allergies Active Medications Generic Name Dose Route Start Last Admin Trade Name Freq PRN Reason Stop Dose Admin Acetaminophen 325 - 650 mg 03/28/19 16:51 03/29/19 12:41 Tylenol PO 650 mg Q4H PRN PRN Administration Albuterol Sulfate 2 puff 03/28/19 16:50 Ventolin Hfa IH PRN PRN Albuterol/Ipratropium 3 ml 03/28/19 16:51 Duoneb Updraft UPD Q6H PRN PRN Aspirin 81 mg 03/29/19 08:30 03/29/19 08:44 PO 81 mg DAILY BRY Administration Dimethicone/Zinc Oxide 0 gm 03/28/19 16:51 Javy Protect Cream TP PRN PRN Docusate Sodium 100 mg 03/28/19 16:51 Colace PO TID PRN PRN Enoxaparin Sodium 40 mg 03/28/19 18:00 03/28/19 19:31 Lovenox SC 40 mg Q24H BRY Administration Fluoxetine HCl 60 mg 03/29/19 08:30 03/29/19 08:43 Prozac PO 60 mg DAILY BRY Administration Sodium Chloride 1,000 mls @ 75 mls/hr 03/28/19 17:00 03/29/19 12:11 Saline 1000ml Bag IV 75 mls/hr INFUSION BRY Administration Ibuprofen 400 mg 03/28/19 20:00 03/29/19 08:44 Motrin PO 400 mg BID BRY Administration Levothyroxine Sodium 50 mcg 03/29/19 06:00 03/29/19 05:27 Levothroid PO 50 mcg DAILY@0600 BRY Administration Magnesium Hydroxide 30 ml 03/28/19 16:51 Milk Of Magnesia PO DAILY PRN PRN Meclizine HCl 25 mg 03/28/19 16:50 Antivert PO TID PRN PRN dizziness Ondansetron HCl 4 mg 03/28/19 16:54 Zofran Injection IVP Q4H PRN PRN Polyethylene Glycol 17 gm 03/28/19 16:51 Miralax PO DAILY PRN PRN Constipation Prochlorperazine Maleate 10 mg 03/28/19 16:50 Compazine PO TID PRN PRN nausea and vomiting Sodium Chloride 10 ml 03/28/19 20:06 03/29/19 12:21 Saline Flush 10 Ml Syringe IVP 10 ml PRN PRN Administration Allergies oxycodone [From Percocet] Allergy (Severe, Verified 03/28/19 10:10) Anaphylaxsis Exam Narrative Exam Narrative: Physical Exam: Gen: Patient of apparent stated age, NAD, BMI 49 Head and face: no facial or cranial abnormalities Neck: Supple, no meningismus, no occipital tenderness CV: + S1, S2, RRR, no murmur Resp: CTA B/L Abd: soft, nontender, nondistended Ext: No edema. No clubbing or cyanosis. No bony deformity. Neuro Exam: Language: fluency, naming, repetition, and comprehension intact; Mental Status: AAOx3, current events intact, fund of knowledge intact; Speech: no dysarthria Cranial nerves: Funduscopy: not performed CN II: visual aquino intact CN III, IV, : extraocular movements intact, signficant horizontal nystagmus in bilateral end-gaze that does not chan; ?upgaze nystagmus?, pupils symmetric and reactive to light CN V: face sensation with paraesthesias to LT and PP in left hemiface; split vibration across the forehead; CN VII: no facial asymmetry noted CN VIII: hearing intact bilaterally CN IX, X: palate rises symmetrically CN XI: trapezius/SCM 5/5 bilaterally CN XII: protrudes tongue symmetrically Sensory: absent sensation of the LLE to all modalities; paraesthesias to LT/PP/vibration in the LUE; Motor: bulk and tone intact. Fine motor movements reduced on the left. Left pronator drift. Strength 5/5 throughout on the right. Somewhat difficult to test in left hemibody. 4/5 in LUE with 1/5 LLE. I was able to get her to hold her LUE in the air unsupported for a time while distracted. Reflexes: 2+ at the biceps, triceps, and brachioradialis; brisk 3+ at the patella and achilles tendons bilaterally; +Left Babisnki; + Right Saldivar Coordination: no ataxia Gait: deferred Results Last Vital Signs Temp 36.6 C 03/29/19 07:10 Pulse 82 03/29/19 07:10 Resp 18 03/29/19 07:10 BP 139/79 03/29/19 07:10 Pulse Ox 96 03/29/19 09:40 Labs : 03/28/19 10:55 03/28/19 10:55
--- NOTE | 2019-03-29 13:24 | NCONE_ITS ---
Date of service: 03/29/19 Time of Service: 13:20 Assessment and Plan (1) Vertigo: Current visit: Yes Status: Chronic (2) Paralysis of left lower extremity: Current visit: Yes Status: Acute (3) Headache: Current visit: Yes Status: Chronic Ms. Greenwood is a 33-year-old, right-handed woman with a 6-week history of persistent and progressive vertigo, nausea, and vomiting with further progressive symptoms including left hemiparesis and hemianesthesia in the setting of acute on chronic headaches. Her neurological exam was significant for persistent horizontal nystagmus in the vertical gaze bilaterally, paresthesias in the left face and arm with absent sensation in the left lower extremity along with mild left upper extremity weakness and more severe left lower extremity weakness in addition to hyperreflexia and a positive left Babinski and a right Claribel reflex. Her progressive symptoms are quite worrisome. While some of her symptoms could be attributed to the C5-6 disc bulge, there is no obvious cord signal changes and these would be very atypical for this to cause a left lower extremity paralysis in addition to the face pa resthesias, nystagmus, and vertigo that she is experiencing. I recommend a repeat MRI brain this time with and without contrast. I would also like an MRA head. Given the progressive nature of symptoms, a demyelinating condition is part of the differential along with ischemia. Addendum on 03/29/19 at 1820: I was able to review the MRI brain w/wo which was unremarkable. The MRA was also unremarkable, but limited by motion artifact. I have reviewed her clinical history and physical exam. -Her physical exam is complicated by functional overlay - notably sensory changes in left face and arm and left arm weakness, possibly more. -In early February, based on +Montserrat-Hallpike, she most likely did have BPPV as evidenced by early response to Qing. It's not clear what the cause of her pers istent vertigo. DDX includes ongoing BPPV, migraine-induced vertigo, and/or PPPV. -I suspect that the horizontal nystagmus seen on end-gaze is her normal and part of her known history of amblyopia s/p correction as a child. -The left Babinski and right Saldivar are likely secondary to the C5-6 disc bulge and spinal cord compression. It is unclear if she has any other si/sx of myelopathy given the functional overlay. -I do not have a good explanation at this time for her left leg. Acute Flaccid Paralysis/Myelitis as with polio and polio-like illnesses (WNV, coxsackievirus, etc) are typically associated with reduced reflexes (which she does not have) and is not associated with sensory findings (which she does have). The ddx includes complex migraine vs conversion disorder. At this point, I am at somewhat of a loss on how to proceed. I would repeat PT eval with Quitman-Hallpike +/- Qing for her vertigo. We could consider LP with OP, but I think yield is low. I would aggressively treat for atypical/complex migraine. I recommend starting with IV magnesium 1gm q8hr given over 10-20min. I would also start doxepin 50mg q6hr while awake +/- 50mg hydroxyzine. I would use Compazine 5-10mg q8hr prn for breakthrough nausea, headache, or dizziness. It may be worthwhile discussing cervical spine MRI findings with MELIZA and/or transfer for better quality images to determine if there is cord compression. She has clear UMN signs on exam but it's unclear if she has further symptoms due to her functional overlay. History of Present Illness Chief Complaint: weakness Narrative: Handedness: right. HPI: Ms. Greenwood is a 33-year-old woman with a past medical history of possible alcohol syndrome, learning disorder, chronic migraine headaches with and without aura, depression, PTSD, hypothyroidism, nephrolithiasis, and chronic fecal/urinary incontinence. Ms. Greenwood's story is quite complex. It seems to begin approximately 1 to 2 months ago, when she began noticing weakness in the left hemibody as well as new onset and persistent dizziness described as room spinning. The dizziness is quite constant but is worsened by eating and movements. It is present at rest. She was initially seen in the [facility] emergency room on 02/19/2019 for her vertigo. She underwent a CT head which was unremarkable. She was noted to have 2-3 beats of horizontal nystagmus in right end gaze that provoked her symptoms. She was prescribed meclizine and discharged home with an outpatient PT appointment. She was evaluated by PT on 03/03/2019 and 03/06/2019. She had a +Quitman-Hallpike on the right with upbeating nystagmus. She initially responded to Qing maneuver. However, she later endorsed episodes of vomiting, left ear tinnitus, diplopia, and headaches to PT. In addition, she was no longer able to tolerate any positional maneuvers, all of which seem to make her symptoms worse. She presented back to the emergency room on 03/17/2019 for ongoing vertiginous symptoms, emesis, headache, and gait imbalance. She underwent an MRI brain and IAC with and without contrast which was unremarkable per my review. She was admitted overnight but left the next day AMA due to childcare issues. She was treated with NSAIDs, antiemetics, PRN Dilaudid, and a dose of Decadron in the e mergency room as well as lorazepam. At the time of discharge she reported new right lower extremity giving out. She presented back to the [facility] emergency room on 03/22/2019 with again persistent vertigo, nausea, vomiting, and headaches along with new pain starting in the right neck and radiating down the entire right side of her body, blurred vision, and new left arm and left leg weakness. She underwent a bedside ocular ultrasound which showed an optic nerve pressure of 3.1 mm which is considered normal limits and was interpreted as unlikely to represent IIH. She was given 1 mg of DHE plus an antiemetic with no improvement in her symptoms. She had improvement after Imitrex and Toradol. She was discharged home feeling better with follow-up at [facility] neurology the next day. She consulted with neurologist Dr. Jace Marin at [facility] on 03/23/2019. She reports headache onset since high school that briefly improved in her 20s and returned in her early 30s. Her headaches are generally left-sided and sharp associated with a visual scotoma, nausea, vomiting, photophobia, phonophobia, and kinesiophobia. At that visit, she was noting the sharp pain radiating down the right side of the body from her neck, left hemiparesis as well as new paresthesias in the left leg. On neurological exam, he noted visual acuity of 20/70 on the left and 20/50 on the right. He did not find any evidence to suggest papilledema. However, venous pulsations were not clearly seen. He noted nystagmus on lateral gaze to the right with medial drift and fast phase to the right. She noted subjective sensations of vertigo at all times. He noted 4/5 strength in the left arm and 3-4/5 strength in the left leg. She had some pain on the right side. She had slight drift and decreased fine motor movements on the left. Reflexes were 3+ in the legs with equivocal toes bilaterally. She had decreased sensation to pinprick and vibration in the left leg. He recommended a cervical spine MRI without contrast as further work-up. In addition, he performed an extensive laboratory work-up including a TSH, B12, phosphorus, Lyme, TTG antibodies, BRUNA, and SPEP all of which were unremarkable. She had ESR of 10. Her phosphorus level was low at 2.4. Anti-cardiolipin antibodies are pending. She has chronically elevated LFTs. He thought that her symptoms may be due to complicated migraine but was unclear of the diagnosis at that time. He prescribed her both Imitrex and hydroxyzine for her symptoms. She has been taking both of these 1-2 times daily with no real change in her dizziness or headaches and side effects of increased fatigue. Ms. Greenwood presented back to the [facility] emergency room on 03/28/2019. The day prior to admission, she was walking when her left leg suddenly buckled. Since then she has had no sensation from the knee down with reduced sensation in the upper leg and is unable to move the leg. She underwent a thoracic and lumbar spine MRI, both of which I was able to review. The thoracic spine is unremarkable. The lumbar spine shows mild right neuroforaminal narrowing at L3- 4 and L4-5 per my review. She continues to have numbness and weakness of the left lower extremity with persistent vertigo even while at rest. Her headaches are occurring off and on but it has been essentially daily for the last 2 months. She underwent a cervical spine MRI which I was able to review. She has a large C5-6 disc bulge which is causing moderate to severe stenosis and cord impingement. I do not see any obvious cord signal changes however. Consults Requesting physician: Tiburcio Ruiz Review of Systems Review of Systems All systems reviewed & are unremarkable except as noted in HPI and below [facility] Medical History Obesity, morbid, BMI 50 or higher (Chronic) Transaminitis (Chronic) Headache (Chronic) Vertigo (Chronic) PTSD (post-traumatic stress disorder) (Chronic) Depression (Chronic) Hypothyroid (Chronic) Mixed incontinence (Acute) Nephrolithiasis (Chronic) Surgical History Amblyopia (Acute) S/P left knee surgery (Acute) S/P bilateral breast reduction (Acute) History of delivery (Inactive) Tubal ligation status (Inactive) Family History Father Thyroid disorder Cirrhosis Mother Cirrhosis Social History Smoking/Tobacco Use Status: Former Tobacco Use Alcohol Intake: never Drug use: Never Household members: friend(s) Number of Children: 3 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 Female Reproductive History Menstrual control method: permanent sterilization (BTL approx 4 years ago) History History 1 Para 1 Hx # Term Pregnancies Multiple births Hx # Pregnancies Ectopic pregnancies AB induced Hx Number of Living Children AB spontaneous Visit Medication and Allergies Active Medications Generic Name Dose Route Start Last Admin Trade Name Freq PRN Reason Stop Dose Admin Acetaminophen 325 - 650 mg 03/28/19 16:51 03/29/19 12:41 Tylenol PO 650 mg Q4H PRN PRN Administration Albuterol Sulfate 2 puff 03/28/19 16:50 Ventolin Hfa IH PRN PRN Albuterol/Ipratropium 3 ml 03/28/19 16:51 Duoneb Updraft UPD Q6H PRN PRN Aspirin 81 mg 03/29/19 08:30 03/29/19 08:44 PO 81 mg DAILY BRY Administration Dimethicone/Zinc Oxide 0 gm 03/28/19 16:51 Javy Protect Cream TP PRN PRN Docusate Sodium 100 mg 03/28/19 16:51 Colace PO TID PRN PRN Enoxaparin Sodium 40 mg 03/28/19 18:00 03/28/19 19:31 Lovenox SC 40 mg Q24H BRY Administration Fluoxetine HCl 60 mg 03/29/19 08:30 03/29/19 08:43 Prozac PO 60 mg DAILY BRY Administration Sodium Chloride 1,000 mls @ 75 mls/hr 03/28/19 17:00 03/29/19 12:11 Saline 1000ml Bag IV 75 mls/hr INFUSION BRY Administration Ibuprofen 400 mg 03/28/19 20:00 03/29/19 08:44 Motrin PO 400 mg BID BRY Administration Levothyroxine Sodium 50 mcg 03/29/19 06:00 03/29/19 05:27 Levothroid PO 50 mcg DAILY@0600 BRY Administration Magnesium Hydroxide 30 ml 03/28/19 16:51 Milk Of Magnesia PO DAILY PRN PRN Meclizine HCl 25 mg 03/28/19 16:50 Antivert PO TID PRN PRN dizziness Ondansetron HCl 4 mg 03/28/19 16:54 Zofran Injection IVP Q4H PRN PRN Polyethylene Glycol 17 gm 03/28/19 16:51 Miralax PO DAILY PRN PRN Constipation Prochlorperazine Maleate 10 mg 03/28/19 16:50 Compazine PO TID PRN PRN nausea and vomiting Sodium Chloride 10 ml 03/28/19 20:06 03/29/19 12:21 Saline Flush 10 Ml Syringe IVP 10 ml PRN PRN Administration Allergies oxycodone [From Percocet] Allergy (Severe, Verified 03/28/19 10:10) Anaphylaxsis Exam Narrative Exam Narrative: Physical Exam: Gen: Patient of apparent stated age, NAD, BMI 49 Head and face: no facial or cranial abnormalities Neck: Supple, no meningismus, no occipital tenderness CV: + S1, S2, RRR, no murmur Resp: CTA B/L Abd: soft, nontender, nondistended Ext: No edema. No clubbing or cyanosis. No bony deformity. Neuro Exam: Language: fluency, naming, repetition, and comprehension intact; Mental Status: AAOx3, current events intact, fund of knowledge intact; Speech: no dysarthria Cranial nerves: Funduscopy: not performed CN II: visual aquino intact CN III, IV, : extraocular movements intact, signficant horizontal nystagmus in bilateral end-gaze that does not chan; ?upgaze nystagmus?, pupils symmetric and reactive to light CN V: face sensation with paraesthesias to LT and PP in left hemiface; split vibration across the forehead; CN VII: no facial asymmetry noted CN VIII: hearing intact bilaterally CN IX, X: palate rises symmetrically CN XI: trapezius/SCM 5/5 bilaterally CN XII: protrudes tongue symmetrically Sensory: absent sensation of the LLE to all modalities; paraesthesias to LT/PP/vibration in the LUE; Motor: bulk and tone intact. Fine motor movements reduced on the left. Left pronator drift. Strength 5/5 throughout on the right. Somewhat difficult to test in left hemibody. 4/5 in LUE with 1/5 LLE. I was able to get her to hold her LUE in the air unsupported for a time while distracted. Reflexes: 2+ at the biceps, triceps, and brachioradialis; brisk 3+ at the patella and achilles tendons bilaterally; +Left Babisnki; + Right Saldivar Coordination: no ataxia Gait: deferred Results Last Vital Signs Temp 36.6 C 03/29/19 07:10 Pulse 82 03/29/19 07:10 Resp 18 03/29/19 07:10 BP 139/79 03/29/19 07:10 Pulse Ox 96 03/29/19 09:40 Labs : 03/28/19 10:55 03/28/19 10:55
--- NOTE | 2019-03-29 14:14 | W.PM.PROGNOT ---
Date of Service Date of service: 03/29/19 Time of Service: 14:14 Assessment and Plan (1) Paralysis of left lower extremity: Current visit: Yes Status: Acute Somewhat atypical presentation and symptoms - not consistent with trauma, and imaging ruled out any spinal pathology at the Thoracic and Lumbar level, with CSpine imaging pending. Recent MRI Brain negative - however, given positive Babinski response today a repeat imaging was recommended. Given patient's LLE and LUE symptoms need to rule out an acute CVA, and given her RLE symptoms 2 weeks prior will include MS as part of the differential. Continue PT/OT evaluation as well. (2) DVT prophylaxis: Current visit: Yes Status: Acute SC Lovenox. Subjective Interval history since last seen: 33-year-old woman with a past medical history significant for depression, PTSD, and chronic LUE weakness, being admitted from [facility] Emergency Department on 03/28 for LLE Paralysis. Ms. Greenwood has a prior history significant for chronic complicated migraines, morbid obesity, vertigo, PTSD, depression and hypothyroidism. She is noted to have chronic LUE weakness for the last few months. The patient was admitted earlier this month with Intractable Headaches with vomiting, and prior to leaving [facility] complained of a RLE Weakness. She follows with Neurology at [facility], Dr. Marin. The patient presented to the ED with reported acute onset Left Lower Extremity Paralysis. She was reportedly ambulating with her cane when her LLE 'gave out', with concurrent reported of loss of sensation as well. Work-up was noteworthy for essentially normal labs with the exception of chronic appearing transaminitis (although with LFTs worse than prior), normal head CT, and mild right sided L3-5 neural foraminal narrowing without evidence of stenosis by MRI of the lumbar and thoracic spine. Her exam was notable for decreased sensation, but with an intact patellar reflexes and normal rectal tone in the ED. MRI of the brain from 03/17 was reviewed and negative as well. [facility] neurology was consulted, reportedly believing symptoms to be atypical for Cauda Equina Syndrome, essentially ruled out by MRI, with differential including a Conversion Disorder. Recommendations were for PT/OT and further neurology evaluation. Ms. Greenwood was admitted for further evaluation and treatment. Based on neurology's recommendation an MRI of the CSpine was obtained - official results unavailable at this time. She was also noted to have a positive Babinski response on her left foot, normal in the right. Patient reports no change in her overall symptoms. No other events reported. She remains afebrile. Exam Narrative Exam Narrative: General: Patient appears comfortable, AAOX3, NAD Neck: Supple CV: Regular, nontachycardic, S1S2, No rubs, murmurs, or gallops. Pulmonary: Clear to auscultation bilaterally, no crackles, wheezing, or rhonchi on limited anterior and lateral exam. Abdomen: + Bowel Sounds, soft, nontender, nondistended Vascular: No lower extremity edema Neurologic: LLE without sensation, total paralysis noted. Psych: Normal mood and affect. Objective Objective Clinical Data: Vital Signs Temperature 36.6 C 03/29/19 07:10 Temperature Source Tympanic 03/29/19 07:10 Pulse 82 03/29/19 07:10 Pulse Rhythm Regular 03/29/19 12:15 Respiratory Rate 18 03/29/19 07:10 Respiratory Effort Non-Labored 03/29/19 12:15 Respiratory Depth Normal 03/29/19 12:15 Respiratory Pattern Normal 03/29/19 12:15 Blood Pressure 139/79 03/29/19 07:10 Blood Pressure Mean 73 03/28/19 15:04 Blood Pressure Position Sitting 03/28/19 09:57 Pulse Oximetry 96 03/29/19 09:40 Oxygen Delivery Method Room Air 03/29/19 12:01 Oxygen Flow Rate 0 03/29/19 12:01 Pain Level 8 03/29/19 12:41 Intake & Output 03/28/19 03/29/19 03/29/19 23:59 11:59 23:59 Intake Total 110 / 110 2020 / 2140 120 / 2140 Output Total 450 / 450 Balance 110 / 110 2019 / 1690 -330 / 1690 Weight 117.934 kg Intake: IV 110 / 110 1000 / 1000 Oral 1020 / 1140 120 / 1140 Output: Urine 450 / 450 Other: Urine Color Pale Dark Mally Yellow Urine Appearance Clear Clear Clear Urine Odor None Comment pt stand and pivot to the commode Voiding Methods Bedside Commode Bedside Commode Laboratory Results WBC 8.11 k/cumm (4.4-10.8) 03/28/19 10:55 RBC 4.31 m/cumm (4.00-5.20) 03/28/19 10:55 Hgb 13.6 g/dL (12.0-15.5) 03/28/19 10:55 Hct 39.9 % (36.0-46.0) 03/28/19 10:55 MCV 92.6 fL (80-95) 03/28/19 10:55 MCH 31.6 pg (27.0-33.0) 03/28/19 10:55 MCHC 34.1 g/dL (32.0-36.0) 03/28/19 10:55 RDW 13.8 % (11.7-14.6) 03/28/19 10:55 Plt Count 223 x1000/uL (130-400) 03/28/19 10:55 MPV 10.6 fL (8.0-11.0) 03/28/19 10:55 Immature Gran % 0.6 03/28/19 10:55 Neutrophils % 53.7 03/28/19 10:55 Lymphocytes % 32.3 03/28/19 10:55 Monocytes % 9.9 03/28/19 10:55 Eosinophils % 3.3 03/28/19 10:55 Basophils % 0.2 03/28/19 10:55 Absolute Neutrophils 4.35 k/cumm (1.2-6.7) 03/28/19 10:55 Absolute Lymphocytes 2.62 k/cumm (1.2-3.4) 03/28/19 10:55 Absolute Monocytes 0.80 k/cumm (0.11-0.7) H 03/28/19 10:55 Absolute Eosinophils 0.27 k/cumm (0.0-0.7) 03/28/19 10:55 Absolute Basophils 0.02 k/cumm (0.0-0.2) 03/28/19 10:55 Sodium 138 mmol/L (136-145) 03/28/19 10:55 Potassium 4.3 mmol/L (3.5-5.1) 03/28/19 10:55 Chloride 103 mmol/L (98-107) 03/28/19 10:55 Carbon Dioxide 25.4 mmol/L (21.0-32.0) 03/28/19 10:55 Anion Gap 9.6 mmol/L (3-11) 03/28/19 10:55 BUN 9 mg/dL (7-18) 03/28/19 10:55 Creatinine 0.66 mg/dL (0.55-1.02) 03/28/19 10:55 Estimated GFR/1.73 m2 >= 60.00 (mL/min/1.73m2) 03/28/19 10:55 Glucose 96 mg/dL (70-100) 03/28/19 10:55 Calcium 8.5 mg/dL (8.5-10.1) 03/28/19 10:55 Total Bilirubin 0.2 mg/dL (0.2-1.0) 03/28/19 10:55 AST 106 U/L (15-37) H 03/28/19 10:55 ALT 213 U/L (12-78) H 03/28/19 10:55 Alkaline Phosphatase 79 U/L (46-116) 03/28/19 10:55 Total Protein 7.4 g/dL (6.4-8.2) 03/28/19 10:55 Albumin 3.4 g/dL (3.4-5.0) 03/28/19 10:55
--- NOTE | 2019-03-29 14:24 | PGE_ITS ---
Date of Service Date of service: 03/29/19 Time of Service: 14:14 Assessment and Plan (1) Paralysis of left lower extremity: Current visit: Yes Status: Acute Somewhat atypical presentation and symptoms - not consistent with trauma, and imaging ruled out any spinal pathology at the Thoracic and Lumbar level, with CSpine imaging pending. Recent MRI Brain negative - however, given positive Babinski response today a repeat imaging was recommended. Given patient's LLE and LUE symptoms need to rule out an acute CVA, and given her RLE symptoms 2 weeks prior will include MS as part of the differential. Continue PT/OT evaluation as well. (2) DVT prophylaxis: Current visit: Yes Status: Acute SC Lovenox. Subjective Interval history since last seen: 33-year-old woman with a past medical history significant for depression, PTSD, and chronic LUE weakness, being admitted from [facility] Emergency Department on 03/28 for LLE Paralysis. Ms. Greenwood has a prior history significant for chronic complicated migraines, morbid obesity, vertigo, PTSD, depression and hypothyroidism. She is noted to have chronic LUE weakness for the last few months. The patient was admitted earlier this month with Intractable Headaches with vomiting, and prior to leaving [place] complained of a RLE Weakness. She follows with Neurology at [facility], Dr. Marin. The patient presented to the ED with reported acute onset Left Lower Extremity Paralysis. She was reportedly ambulating with her cane when her LLE 'gave out', with concurrent reported of loss of sensation as well. Work-up was noteworthy for essentially normal labs with the exception of chronic appearing transaminitis (although with LFTs worse than prior), normal head CT, and mild right sided L3-5 neural foraminal narrowing without evidence of stenos is by MRI of the lumbar and thoracic spine. Her exam was notable for decreased sensation, but with an intact patellar reflexes and normal rectal tone in the ED. MRI of the brain from 03/17 was reviewed and negative as well. [facility] neurology was consulted, reportedly believing symptoms to be atypical for Cauda Equina Syndrome, essentially ruled out by MRI, with differential including a Conversion Disorder. Recommendations were for PT/OT and further neurology evaluation. Ms. Greenwood was admitted for further evaluation and treatment. Based on neurology's recommendation an MRI of the CSpine was obtained - official results unavailable at this time. She was also noted to have a positive Babinski response on her left foot, normal in the right. Patient reports no change in her overall symptoms. No other events reported. She remains afebrile. Exam Narrative Exam Narrative: General: Patient appears comfortable, AAOX3, NAD Neck: Supple CV: Regular, nontachycardic, S1S2, No rubs, murmurs, or gallops. Pulmonary: Clear to auscultation bilaterally, no crackles, wheezing, or rhonchi on limited anterior and lateral exam. Abdomen: + Bowel Sounds, soft, nontender, nondistended Vascular: No lower extremity edema Neurologic: LLE without sensation, total paralysis noted. Psych: Normal mood and affect. Objective Objective Clinical Data: Vital Signs Temperature 36.6 C 03/29/19 07:10 Temperature Source Tympanic 03/29/19 07:10 Pulse 82 03/29/19 07:10 Pulse Rhythm Regular 03/29/19 12:15 Respiratory Rate 18 03/29/19 07:10 Respiratory Effort Non-Labored 03/29/19 12:15 Respiratory Depth Normal 03/29/19 12:15 Respiratory Pattern Normal 03/29/19 12:15 Blood Pressure 139/79 03/29/19 07:10 Blood Pressure Mean 73 03/28/19 15:04 Blood Pressure Position Sitting 03/28/19 09:57 Pulse Oximetry 96 03/29/19 09:40 Oxygen Delivery Method Room Air 03/29/19 12:01 Oxygen Flow Rate 0 03/29/19 12:01 Pain Level 8 03/29/19 12:41 Intake & Output 03/28/19 03/29/19 03/29/19 23:59 11:59 23:59 Intake Total 110 / 110 2020 / 2140 120 / 2140 Output Total 450 / 450 Balance 110 / 110 2019 / 1690 -330 / 1690 Weight 117.934 kg Intake: IV 110 / 110 1000 / 1000 Oral 1020 / 1140 120 / 1140 Output: Urine 450 / 450 Other: Urine Color Pale Dark Mally Yellow Urine Appearance Clear Clear Clear Urine Odor None Comment pt stand and pivot to the commode Voiding Methods Bedside Commode Bedside Commode Laboratory Results WBC 8.11 k/cumm (4.4-10.8) 03/28/19 10:55 RBC 4.31 m/cumm (4.00-5.20) 03/28/19 10:55 Hgb 13.6 g/dL (12.0-15.5) 03/28/19 10:55 Hct 39.9 % (36.0-46.0) 03/28/19 10:55 MCV 92.6 fL (80-95) 03/28/19 10:55 MCH 31.6 pg (27.0-33.0) 03/28/19 10:55 MCHC 34.1 g/dL (32.0-36.0) 03/28/19 10:55 RDW 13.8 % (11.7-14.6) 03/28/19 10:55 Plt Count 223 x1000/uL (130-400) 03/28/19 10:55 MPV 10.6 fL (8.0-11.0) 03/28/19 10:55 Immature Gran % 0.6 03/28/19 10:55 Neutrophils % 53.7 03/28/19 10:55 Lymphocytes % 32.3 03/28/19 10:55 Monocytes % 9.9 03/28/19 10:55 Eosinophils % 3.3 03/28/19 10:55 Basophils % 0.2 03/28/19 10:55 Absolute Neutrophils 4.35 k/cumm (1.2-6.7) 03/28/19 10:55 Absolute Lymphocytes 2.62 k/cumm (1.2-3.4) 03/28/19 10:55 Absolute Monocytes 0.80 k/cumm (0.11-0.7) H 03/28/19 10:55 Absolute Eosinophils 0.27 k/cumm (0.0-0.7) 03/28/19 10:55 Absolute Basophils 0.02 k/cumm (0.0-0.2) 03/28/19 10:55 Sodium 138 mmol/L (136-145) 03/28/19 10:55 Potassium 4.3 mmol/L (3.5-5.1) 03/28/19 10:55 Chloride 103 mmol/L (98-107) 03/28/19 10:55 Carbon Dioxide 25.4 mmol/L (21.0-32.0) 03/28/19 10:55 Anion Gap 9.6 mmol/L (3-11) 03/28/19 10:55 BUN 9 mg/dL (7-18) 03/28/19 10:55 Creatinine 0.66 mg/dL (0.55-1.02) 03/28/19 10:55 Estimated GFR/1.73 m2 >= 60.00 (mL/min/1.73m2) 03/28/19 10:55 Glucose 96 mg/dL (70-100) 03/28/19 10:55 Calcium 8.5 mg/dL (8.5-10.1) 03/28/19 10:55 Total Bilirubin 0.2 mg/dL (0.2-1.0) 03/28/19 10:55 AST 106 U/L (15-37) H 03/28/19 10:55 ALT 213 U/L (12-78) H 03/28/19 10:55 Alkaline Phosphatase 79 U/L (46-116) 03/28/19 10:55 Total Protein 7.4 g/dL (6.4-8.2) 03/28/19 10:55 Albumin 3.4 g/dL (3.4-5.0) 03/28/19 10:55
--- NOTE | 2019-03-29 14:55 | CHAPLAIN ---
Tawana was in bed, just finishing up a conversation with dietary staff, when I visited. Tawana told me she's had a stroke and has difficulty moving around. She has a three year old son, who will turn four next week, who is currently with her sister who lives about 45 minutes from [facility]. Tawana said she has been relying on God while dealing with these challenging health issues. She regularly attends the [facility] and gave me permission to call [employer] Compliance Managermanuel Luo to let him know she is here. Tawana accept my offer to say a prayer with her, so we did.
--- NOTE | 2019-03-29 15:01 | PT.INTREAT ---
Date of service: 03/29/19 Time of Service: 15:01 PT Notes Inpatient Physical Therapy Treatment Note [facility] Date: 03/29/19 PRECAUTIONS: Fall, WBAT on L SUBJECTIVE: Tawana is agreeable to participating in PT. OBJECTIVE: PAIN: No c/o pain BED MOBILITY/TRANSFERS/GAIT: Held OOB THEREX: Patient performed an UE strengthening program, as per flow sheet. 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 Her left LE was ranged, passively, into ankle PF and DF, hip abduction/adduction, hip flexion/extension, and knee flexion/extension, with attempts made by patient to participate. ASSESSMENT: Patient was able to tolerate a ther ex strengthening program with B UEs. She would benefit from continued ranging of L LE, and strengthening of UEs. PLAN: Add resistance to UE strengthening program. TREATMENT CODE/TIME: 25 minutes; 33708 x2
--- NOTE | 2019-03-29 15:06 | PTTR_ITS ---
Date of service: 03/29/19 Time of Service: 15:01 PT Notes Inpatient Physical Therapy Treatment Note [facility] Date: 03/29/19 PRECAUTIONS: Fall, WBAT on L SUBJECTIVE: Tawana is agreeable to participating in PT. OBJECTIVE: PAIN: No c/o pain BED MOBILITY/TRANSFERS/GAIT: Held OOB THEREX: Patient performed an UE strengthening program, as per flow sheet. 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 Her left LE was ranged, passively, into ankle PF and DF, hip abduction/adduction, hip flexion/extension, and knee flexion/extension, with attempts made by patient to participate. ASSESSMENT: Patient was able to tolerate a ther ex strengthening program with B UEs. She would benefit from continued ranging of L LE, and strengthening of UEs. PLAN: Add resistance to UE strengthening program. TREATMENT CODE/TIME: 25 minutes; [id number] x2
[2019-03-29 15:55] VITALS: BP 146/70; PULSE 74; RESP 19; O2SAT 97
--- NOTE | 2019-03-29 16:45 | DI.MRI_ITS ---
SYMPTOM/DIAGNOSIS: LLE PARALYSIS, ? MS MR ANGIOGRAPHY [place]: MR angiography of the region of the [place] was performed according to the usual protocol. The examination is limited by motion artifact. Distal vertebral arteries and the basilar artery are grossly unremarkable, no evidence of aneurysm, stenosis or dissection. Intracranial internal carotid arteries are unremarkable with no evidence of significant stenosis, aneurysm or dissection. Middle, anterior and posterior cerebral arteries grossly intact bilaterally with no evidence of stenosis, aneurysm or dissection. CONCLUSION: Somewhat limited study but negative MR angiogram [place]. BRAIN MRI: MR examination of the brain was performed according to the usual protocol with additional post contrast coronal and axial T 1 weighted imaging and sagittal FLAIR imaging. No signal abnormality identified in the brain. No mass lesion or enhancing lesion. The orbital and temporal bone structures appear intact as does the pituitary. Diffusion weighted imaging shows no evidence of infarction. Susceptibility weighted imaging shows no evidence of intracranial hemorrhage. CONCLUSION: Negative brain MRI.
[2019-03-29] MEDS: Gadoterate meglumine 20 ML VIAL IVP (17:28)
--- NOTE | 2019-03-29 17:59 | DI.VRAD_ITS ---
EXAM: MR Head Without and With Contrast EXAM DATE/TIME: 03/29/2019 5:27 PM CLINICAL HISTORY: 33 years old, female; Signs and symptoms; Numbness / parasthesia; Patient HX: Left lower extremity paralysis, questioning ms. TECHNIQUE: Imaging protocol: MR of the head without and with intravenous contrast. Contrast material: DOTAREM; Contrast volume: 20 ml; Contrast route: IV; COMPARISON: HEAD^MRA COW 03/29/2019 4:[address] head 03/28/2019 FINDINGS: Brain: Exam mildly degraded by patient motion. The ventricles and the sulci are within normal limits. There is no evidence of intracranial mass or shift. No significant parenchymal abnormality is identified within the brain, brainstem or posterior fossa. No abnormal extra-axial collections are identified. There is no abnormal susceptibility to suggest prior intracranial hemorrhage. There is no restricted diffusion to suggest recent, acute or subacute ischemia and or cytotoxic edema. There is no abnormal intracranial contrast enhancement. Ventricles: No significant ventricular enlargement Bones/joints: Craniocervical junction is unremarkable Soft tissues: Subcutaneous soft tissues are unremarkable Sinuses: No significant sinus opacification or fluid level Mastoid air cells: No significant mastoid opacification Orbits: The orbits are unremarkable Sella: Sella, intrasellar structures are unremarkable. Other vasculature: Flow voids are unremarkable on the sequences obtained. IMPRESSION: Unremarkable MR examination of brain. No significant or acute findings. No abnormality to suggest intracranial demyelinating plaque. Dictated and Authenticated by: Sylvie Villalpando MD. Ordering:CHEYENNE Dey MD
--- NOTE | 2019-03-29 18:03 | DI.VRAD_ITS ---
EXAM: MR Angiogram Head Without and With Contrast, Arteries EXAM DATE/TIME: 03/29/2019 4:39 PM CLINICAL HISTORY: 33 years old, female; Signs and symptoms; Paralysis, transient of limb; Patient HX: Left lower extremity, questioning ms. TECHNIQUE: Imaging protocol: MR angiogram head without and with intravenous contrast. Exam focused on the arteries. 3D rendering: MIP reconstructed images were created and reviewed. COMPARISON: MR IAC brain wo/w 03/17/2019 4:31 PM FINDINGS: Exam is degraded by patient motion. Symmetric flow is seen within the intracranial ICAs. Ophthalmic artery origins are identified bilaterally. A1 segments are present and flow is seen distally in the anterior cerebral arteries. There is no high-grade M1 segment stenosis and symmetric flow is seen in the middle cerebral arteries. The vertebral basilar junction is patent bilaterally. The PICA origins are not visualized in this field of view. Flow is maintained throughout the basilar artery. Anterior inferior cerebellar artery origins are identified. Superior cerebellar artery origins are identified. There is a prominent right posterior communicating artery with an apparent near right DRESSER TENDER. There is a probable small hypoplastic right P1 segment is identified. Larger of left P1 segment is identified. Flow is seen distally in both news clerk. Evaluation for subtle abnormality is limited due to motion but there is no high-grade intracranial vascular stenosis identified. No large aneurysm IMPRESSION: Exam degraded by patient motion but no significant intracranial vascular abnormality Dictated and Authenticated by: Sylvie Villalpando MD. Ordering:CHEYENNE Dey MD
[2019-03-29] MEDS: Enoxaparin 40 MG/0.4 ML SYR SC (18:08)
--- NOTE | 2019-03-29 19:19 | NUR.NOTE ---
Nursing Note: Pt c/o increased left arm numbness from elbow down, let charge nurse Earlene know.
[2019-03-29] MEDS: Dexamethasone 10 MG/ML VIAL IVP (19:33)
[2019-03-30] VITALS: BP 109/72; PULSE 85; RESP 22; TEMP 37; O2SAT 98
[2019-03-30] MEDS: Normal Saline 1,000 ML 75 ML IV ×2 (05:16→23:35)
[2019-03-30] MEDS: Levothyroxine 50 MCG TAB PO (05:17)
[2019-03-30 07:30] VITALS: BP 143/87; PULSE 78; RESP 18; TEMP 36.8; O2SAT 98
[2019-03-30] MEDS: FLUoxetine 20 MG CAP 60 MG PO (08:13)
[2019-03-30] MEDS: Ibuprofen 400 MG TAB PO ×2 (08:13→23:37)
[2019-03-30] MEDS: Aspirin 81 MG CHEW PO (08:14)
[2019-03-30] MEDS: Normal Saline Flush 10 ML SYR IVP ×3 (08:18→13:32)
--- NOTE | 2019-03-30 10:13 | OT.INTREAT ---
Date of service: 03/30/19 Time of Service: 08:25 Occupational Therapy Notes Occupational Therapy Inpatient Treatment Note Date: 03/30/19 PRECAUTIONS: Fall, Standard SUBJECTIVE: Pt was sitting in chair when OT arrived. She was agreeable to OT session. OBJECTIVE: PAIN:c/o pain in (L) hip and lower back FUNCTIONAL MOBILITY Sit-stand: Min (A)x2 Stand-sit: Min (A) toilet-Chair: CGA, max (A) (L) LE movement in gait pattern BATHING: Standing at sink with FWW and boot on (L) LE Upper Body: (I) with mod vc Lower Body: (I) in sitting DRESSING: Sitting on toilet Upper Extremity: (I) don and doffing hospital gown Lower Extremity: Mod-Max (A) donning and doffing underwear, Max (A) donning (B) shoe/boot GROOMING: Standing at sink with boot on (L) LE (I) with min-mod vc for hand placement and weight shifting with FWW, max (A) hair for putting hair up as pt had decreased functional activity tolerance. TOILETING: Device: Toilet Assist: (I) toileting hygiene, Max (A) leg placement for (L) LE EATING: (I) sitting in chair ASSESSMENT/PLAN: Pt is unable to perform functional mobility at this time without max (A) for (L) LE. OT based on pts current level of function with mobility even with boot on (L) LE OT feels that pt would benefit from short term stay in SNF. Pt has not been receptive to this however she will require (A) with ADLs/IADLs if she returns home in terms of functional mobility and decreased functional activity tolerance. The boot provided stability in static standing which allowed pt to perform her ADLs standing at the sink. OT will continue to progress pt towards goals established at initial evaluation. TREATMENT CODES/TIME: [id number], 45 minutes (08:25) Maddy Alvarez OTR/[facility]
[2019-03-30] MEDS: Pantoprazole 40 MG VIAL IVP (11:15)
--- NOTE | 2019-03-30 11:37 | PGE_ITS ---
Date of Service Date of service: 03/30/19 Time of Service: 11:36 Assessment and Plan (1) Paralysis of left lower extremity: Current visit: Yes Status: Acute Somewhat atypical presentation and symptoms - not consistent with trauma, and imaging ruled out any spinal pathology at the Thoracic and Lumbar level, with CSpine imaging showing cord compression at C5-6 due to disc bulge, without cord signal abnormality. Recent MRI Brain negative - given positive Babinski response repeat imaging with MRI with/without contrast as well as an MRA was obtained, essentially unremarkable. Complex symptoms of LUE weakness, now with new paresthesias, LLE with Paresis and Flaccid Paralysis, Inguinal paresthesias with potential difficulty urinating in patient with significant headaches and Vertigo. Per discussion with Neurology at [facility] Atypical Migraine and Conversion Disorder are still on the differential, with recommendations for aggressive treatment of patient's underlying headaches. She was refused in transfer. Will initiate IV mag, Doxepin, Hydroxyzine, and Sumatriptan - consider addition of Compazine vs. Reglan for breakthrough symptoms as well. Neurology input appreciated as well. (2) DVT prophylaxis: Current visit: No Status: Acute SC Lovenox. Subjective Interval history since last seen: 33-year-old woman with a past medical history significant for depression, PTSD, and chronic LUE weakness, being admitted from [facility] Emergency Department on 03/28 for LLE Paralysis. Ms. Greenwood has a prior history significant for chronic complicated migraines, morbid obesity, vertigo, PTSD, depression and hypothyroidism. She is noted to have chronic LUE weakness for the last few months. The patient was admitted earlier this month with Intractable Headaches with vomiting, and prior to leaving [place] complained of a RLE Weakness. She follows with Neurology at [facility], Dr. Marin. The patient presented to the ED with reported acute onset Left Lower Extremity Paralysis. She was reportedly ambulating with her cane when her LLE 'gave out', with concurrent reported of loss of sensation as well. Work-up was noteworthy for essentially normal labs with the exception of chronic appearing transaminitis (although with LFTs worse than prior), normal head CT, and mild right sided L3-5 neural foraminal narrowing without evidence of stenosis by MRI of the lumbar and thoracic spine. Her exam was notable for decreased sensation, but with an intact patellar reflexes and normal rectal tone in the ED. MRI of the brain from 03/17 was reviewed and negative as well. [facility] neurology was consulted, reportedly believing symptoms to be atypical for Cauda Equina Syndrome, essentially ruled out by MRI, with differential including a Conversion Disorder. Recommendations were for PT/OT and further neurology evaluation. Ms. Greenwood was admitted for further evaluation and treatment. Based on neurology's recommendation an MRI of the CSpine was obtained, results showing a significant C5-6 disc herniation with resultant cord deformity but without an intracord signal abnormality. She was also noted to have a positive Babinski response on her left foot, normal in the right. Repeat MRI with and without contrast were negative for pathology. Patient continues to report no change in her overall symptoms, with continued LLE paralysis, LUE weakness, and headache. She is now also complaining of LUE paresthesias and subjective 'tingling' in her inguinal region with difficulty urinating. No other events reported. She remains afebrile. Exam Narrative Exam Narrative: General: Patient appears comfortable, AAOX3, NAD Neck: Supple CV: Regular, nontachycardic, S1S2, No rubs, murmurs, or gallops. Pulmonary: Clear to auscultation bilaterally, no crackles, wheezing, or rhonchi on limited anterior and lateral exam. Abdomen: + Bowel Sounds, soft, nontender, nondistended Vascular: No lower extremity edema Neurologic: LLE without sensation, flacid paralysis noted. Prior exam with patellar reflex intact, and +Babinski on left per neurology exam. Psych: Normal mood and affect. Objective Objective Clinical Data: Vital Signs Temperature 36.8 C 03/30/19 07:30 Temperature Source Tympanic 03/30/19 07:30 Pulse 78 03/30/19 07:30 Pulse Rhythm Regular 03/30/19 00:00 Respiratory Rate 18 03/30/19 07:30 Respiratory Effort Non-Labored 03/30/19 00:00 Respiratory Depth Normal 03/30/19 00:00 Respiratory Pattern Normal 03/30/19 00:00 Blood Pressure 143/87 H 03/30/19 07:30 Blood Pressure Mean 73 03/28/19 15:04 Blood Pressure Position Sitting 03/28/19 09:57 Pulse Oximetry 98 03/30/19 07:30 Oxygen Delivery Method Room Air 03/30/19 07:30 Oxygen Flow Rate 0 03/30/19 07:30 Pain Level 5 03/30/19 09:13 Comment 03/30/19 07:30 Intake & Output 03/29/19 03/29/19 03/30/19 11:59 23:59 11:59 Intake Total 2019. 881.25 / 2901.25 2048.75 / 2048.75 Output Total 1050 / 1050 2200 / 2200 Balance 2020 / 1851.25 -168.75 / 1851.25 -151.25 / -151.25 Intake: IV 1000 / 1281.25 281.25 / 1281.25 728.75 / 728.75 Oral 1020 / 1620 600 / 1620 1320 / 1320 Output: Urine 1050 / 1050 2200 / 2200 Other: Urine Color Pale Straw Straw Yellow Urine Appearance Clear Clear Clear Urine Odor None Normal Normal Comment pt stand and pivot to the commode patient on menses Voiding Methods Bedside Commode Bedside Commode Bedside Commode Laboratory Results WBC 8.11 k/cumm (4.4-10.8) 03/28/19 10:55 RBC 4.31 m/cumm (4.00-5.20) 03/28/19 10:55 Hgb 13.6 g/dL (12.0-15.5) 03/28/19 10:55 Hct 39.9 % (36.0-46.0) 03/28/19 10:55 MCV 92.6 fL (80-95) 03/28/19 10:55 MCH 31.6 pg (27.0-33.0) 03/28/19 10:55 MCHC 34.1 g/dL (32.0-36.0) 03/28/19 10:55 RDW 13.8 % (11.7-14.6) 03/28/19 10:55 Plt Count 223 x1000/uL (130-400) 03/28/19 10:55 MPV 10.6 fL (8.0-11.0) 03/28/19 10:55 Immature Gran % 0.6 03/28/19 10:55 Neutrophils % 53.7 03/28/19 10:55 Lymphocytes % 32.3 03/28/19 10:55 Monocytes % 9.9 03/28/19 10:55 Eosinophils % 3.3 03/28/19 10:55 Basophils % 0.2 03/28/19 10:55 Absolute Neutrophils 4.35 k/cumm (1.2-6.7) 03/28/19 10:55 Absolute Lymphocytes 2.62 k/cumm (1.2-3.4) 03/28/19 10:55 Absolute Monocytes 0.80 k/cumm (0.11-0.7) H 03/28/19 10:55 Absolute Eosinophils 0.27 k/cumm (0.0-0.7) 03/28/19 10:55 Absolute Basophils 0.02 k/cumm (0.0-0.2) 03/28/19 10:55 Sodium 138 mmol/L (136-145) 03/28/19 10:55 Potassium 4.3 mmol/L (3.5-5.1) 03/28/19 10:55 Chloride 103 mmol/L (98-107) 03/28/19 10:55 Carbon Dioxide 25.4 mmol/L (21.0-32.0) 03/28/19 10:55 Anion Gap 9.6 mmol/L (3-11) 03/28/19 10:55 BUN 9 mg/dL (7-18) 03/28/19 10:55 Creatinine 0.66 mg/dL (0.55-1.02) 03/28/19 10:55 Estimated GFR/1.73 m2 >= 60.00 (mL/min/1.73m2) 03/28/19 10:55 Glucose 96 mg/dL (70-100) 03/28/19 10:55 Calcium 8.5 mg/dL (8.5-10.1) 03/28/19 10:55 Total Bilirubin 0.2 mg/dL (0.2-1.0) 03/28/19 10:55 AST 106 U/L (15-37) H 03/28/19 10:55 ALT 213 U/L (12-78) H 03/28/19 10:55 Alkaline Phosphatase 79 U/L (46-116) 03/28/19 10:55 Total Protein 7.4 g/dL (6.4-8.2) 03/28/19 10:55 Albumin 3.4 g/dL (3.4-5.0) 03/28/19 10:55
[2019-03-30] MEDS: SUMAtriptan 6 MG/0.5 ML VIAL SC (12:11)
[2019-03-30] MEDS: Doxepin 50 MG CAP PO ×3 (12:19→23:37)
[2019-03-30] MEDS: MAGNESIUM SULFATE 1 GM/100 ML BAG IVPB ×2 (12:19→20:57)
--- NOTE | 2019-03-30 12:24 | PT.INTREAT ---
Date of service: 03/30/19 Time of Service: 12:24 PT Notes Inpatient Physical Therapy Treatment Note [facility] Date: 03/30/19 PRECAUTIONS: Fall SUBJECTIVE: Tawana reports that she continues to have no feeling or ability to move her L LE today. OBJECTIVE: Fit Aircast walking boot to patient's L LE to provide support with ankle dorsiflexion for improved ankle stability with transfers and gait. PAIN: Patient c/o pulling in her back with passive ankle dorsiflexion on L. BED MOBILITY/TRANSFERS Sit-stand: Min A Stand-sit: CGA GAIT Assistive Device: FWW Weight bearing: WBAT on L Assist: Min A Distance: 6' + 10' Deviation: Performed with Aircast walking boot, requires assit for L LE advancement Static standing 2x3 minutes with UE support and x5 minutes without UE support ASSESSMENT: Patient tolerated session with c/o increased fatigue with activity. She continues to require total assist with L LE advancement during gait training with FWW support. PLAN: Continue with PT's POC TREATMENT CODE/TIME: 30 minutes; [id number] x2
[2019-03-30] MEDS: DEXAMETHASONE 5 MG PO ×2 (13:32→20:57)
--- NOTE | 2019-03-30 13:43 | PDOC.CMPRO ---
- If Service Date Differs Date of service: 03/30/19 Time of Service: 13:43 Care Management Progress Note S/O: Tawana is sitting up in her chair when this sba underwriter visits. She is visibly tearful when CM enters the room and is just getting off from a phone call. Tawana states that she had to have a phone conversation in regards to her 12 y/o child not returning home. CM engaged Tawana in discussion and provided active listening. Tawana states that she will be contacting her therapist today to discuss the above. CM discussed Tawana being physically weak at this time and needing physical therapy. Tawana reports that her son will be with her sister for the next month or more, and that she is receptive to SNF placement at [facility] which PT has recommended. CM notified PT and Dr. Ruiz of the above. Referral to be sent today to [facility] today. A: 33 y/o female admitted 03/29/19 for (L) Lower extremity parathesia/weakness P: Referral sent to [facility] and left for Minoo, kyree,.
[2019-03-30] MEDS: Docusate Sodium 100 MG CAP PO ×2 (13:58→20:58)
[2019-03-30] MEDS: Polyethylene Glycol 3350 17 GM PACKET PO (13:58)
--- NOTE | 2019-03-30 14:06 | CMPROGNOTE_ITS ---
- If Service Date Differs Date of service: 03/30/19 Time of Service: 13:43 Care Management Progress Note S/O: Tawana is sitting up in her chair when this program writer visits. She is visibly tearful when CM enters the room and is just getting off from a phone call. Tawana states that she had to have a phone conversation in regards to her 12 y/o child not returning home. CM engaged Tawana in discussion and provided active listening. Tawana states that she will be contacting her therapist today to discu ss the above. CM discussed Tawana being physically weak at this time and needing physical therapy. Tawana reports that her son will be with her sister for the next month or more, and that she is receptive to SNF placement at [facility] which PT has recommended. CM notified PT and Dr. Ruiz of the above. Referral to be sent today to [facility] today. A: 33 y/o female admitted 03/29/19 for (L) Lower extremity parathesia/weakness P: Referral sent to [facility] and left for Minoo, kyree,.
--- NOTE | 2019-03-30 15:21 | PT.INIE ---
Date of service: 03/29/19 Time of Service: 11:08 PT Notes Inpatient Physical Therapy Evaluation Date: 03/29/2019 Referring Doctor: Tiburcio Ruiz MD PT Orders: PT CONSULT: Arnie Lindquist Precautions: Fall. Standard. Patient Profile/Admitting Diagnosis: Patient is a 33-year-old female with a past medical history significant for chronic complicated migraines, vertigo, depression, PTSD, and chronic L UE weakness who presented to the ED on 03/28/2019 with chief complaints of L LE paralysis and siginifcantly reduced sensation from the left groin down. On record, patient came to the ED on 03/17/2019 with complaints of chronic intarctable headache but left AMA. She states that she has been using a straight cane for indoor and outdoor ambulation for the past 2 weeks and had a near fall when her legs gave out while negotiating several steps two days ago. MRI done on 03/17/2019 was interpreted with absent stroke, negative acute abnormality, nor mass-effect. MRI of thoracic and lumbar spine while at ED on 03/28/2019 showed no evidence of fracture, trauma, nor cord compression. CT of head revealed no acute stroke process, hemorrhage, and abnormality. Of note, patient was seen at out-patient physical therapy for symptoms of dizziness for two sessions, 03/03/2019 and 03/06/19, but with no resolution of symptoms achieved. 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 Prior to two weeks ago, patient was independent with all aspects of ADLs without need for an assistive device nor adaptive equipment. She lives with her 4-year-old son Maxwell and a friend in an apartment. She states that she has 3 children, the other two are not currently in her custody. She states that she enters her apartment through the back which has 1 step to enter. She rides [employer] for all her transportation needs. Current Level of Function: Patient reports needing to use a straight cane for the past 2 weeks and has been having difficulty managing her 4-year-old son. She reports having to stop work 2 weeks ago. She continues to report symptoms of dizziness with positional changes and during quick movements. Equipment Owned/DME: FWW provided during her last ED admission SUBJECTIVE: Patient reports being dizzy when seated up on the edge of the bed from supine. She complained about left low back pain and posterior hip discomfort with transfer and ambulation activity. She hopes that she could go home as soon as possible as she has a 4-year-old whom she wants to go back to. OBJECTIVE: General Observation: Patient was seen resting in bed at time of PT evaluation. Obese. Left lower extremity in extreme external rotation at the hip. Mental Status: Alert and oriented x3 Pain: Moderate pain on left lower back and left posterior hip aggravated by transfer and ambulation activity ROM: Right Upper Extremity: Shoulder Flexion WFL. Shoulder abduction WFL. Elbow flexion WFL. Wrist flexion WFL. Functional opening and closing of hand WFL. Left Upper Extremity: Shoulder Flexion 0-100. Shoulder abduction 0-80. Elbow flexion WFL. Wrist flexion WFL. Functional opening and closing of hand WFL. Right Lower Extremity: Hip flexion WFL. Hip abduction WFL. Knee flexion WFL. Ankle dorsiflexion WFL. Ankle plantarflexion WFL. Left Lower Extremity: Hip flexion 0/5. Hip abduction 0/5. Knee flexion 0/5. Ankle dorsiflexion 0/5. Ankle plantarflexion 0/5. Strength: Right Upper Extremity: Shoulder flexors 4/5. Shoulder abductors 4/5. Elbow flexors 4/5. Elbow extensors 5/5. Field Artillery Operations Specialist strong. Left Upper Extremity: Shoulder flexors 3-/5. Shoulder abductors 3-/5. Elbow flexors 3+/5. Elbow extensors 5/5. Field Artillery Operations Specialist strong. Right Lower Extremity: Hip flexors 5/5. Hip abductors 5/5. Knee flexors 5/5. Knee extensors 5/5. Ankle dorsiflexors 5/5. Ankle plantarflexors 5/5. Left Lower Extremity:Hip flexors 5/5. Hip abductors 5/5. Knee flexors 5/5. Knee extensors 5/5. Ankle dorsiflexors 5/5. Ankle plantarflexors 5/5. Sensation: Absent on left LE, diminished on left UE as to pain and pressure. Intact on the R UE/LE. Bed Mobility/Transfers: Supine to sit minimal assist to left LE with HOB 30 degrees Sit to supine minimal assist to left LE with HOB 30 Sit to stand minimal assist with FWW, minimal verbal cues needed for hand placement and walker management Stand to sit minimal assist with FWW, minimal verbal cues needed for hand placement and walker management Bed to chair minimal assist with FWW, minimal verbal cues needed for hand placement and walker management Chair to bed minimal assist with FWW, minimal verbal cues needed for hand placement and walker management Gait: Patient was able to tolerate short distance ambulation using FWW of 4 feet with L foot dragging and left toes striking the floor first as patient has absent dorsiflexion on the left side. Gait deviation notable for increased circumduction of L LE to attempt to advance limb forward. Hip hiking on the left increased to clear now lengthened LE due to plantarflexed ankle. These compensatory gait pattern resulted to increased report of low back pain and which resulted to report of left low back and left posterior hip pain after gait activity. Patient also reported dizziness during movement transitions and in the upright position. Patient appeared to be able to bear minimal weight onto plantarflexed foot through the toes to advance right foot. Will plan on assessing for appropriate ankle foot orthosis to assist with foot dorsiflexion for safer gait pattern. Will communicate with nursing to defer any walking activity with patient due to high fall risk at this time. Ambulation with therapy only. Transfers only to wheelchair or to bedside commode with assistance of nursing staff. Use cast boot for all transfers. Balance: Static Sitting: Fair Dynamic Sitting: Fair Static Standing: Poor Dynamic Standing: Poor Special Tests: Mobility Limitations Standardized Measure [facility]-PAC 6 clicks Basic Mobility Inpatient Short Form: Raw Score: 16 CMS Score: 54% deficit L Babinski Test Stroking of lateral area of sole of foot from heel to and across medially to the first hallux resulted to extension of hallux and fanning of the other four toes. This was attempted 3 times and elicited same response. L Miracle Test Fanning of L toes elicited with stroking of left medial leg from distal to proximal. Tests for Dizziness Patient demonstrated horizontal nystagmus and reported dizziness with head/neck rotation most notably with rotation to the right. Horizontal nystagmus was also reproduced with lateral gaze toward right side. Upward gaze is normal. VOR is normal. [place]-Halpike test was not tested due to complete paralysis of L LE, complaints of left low back pain, and morbid obesity (will arrange with COMMUNICATIONS EQUIPMENT INSTALLER in the next session to attempt to assess). Informed Consent/Education: Patient instructed in purpose of PT consult and plan of care. Assessment: Patient is a 33-year-old female referred to physical therapy services with the diagnosis of L LE paralysis and decreased sensation to L LE with test positive for Babinski reflex and reflex suggestive of an upper motor nueron affectation. Patient presents with clinical signs and symptoms consistent with current/admitting diagnoses that have resulted to mobility limitations, gait instability, generalized weakness, and impairment of motor control as demonstrated by the following impairment level findings: 1. Lack of movement on L LE major muscle groups 2. Impaired sitting/standing balance 3. Impaired activity tolerance 4. Limitation of joint range of motion in L LE joints 5. Dizziness Impairments are contributing to the following functional limitations: 1. Dependent bed mobility skills 2. Increased dependence with transfers 3. Inability to safely ambulate without assistive device and physical assistance 4. Increase completion time for mobility ADL performance 5. Increased fall risk 6. Inability to negotiate steps alone safely Patient is assessed as a Moderate [id number] complexity based on the following: History: Diagnosis of left lower extremity paralysis with decreased sensation compounded by obesity, complicated migraines, dizziness, PTSD which resulted to significant mobility impairments as indicated above Examination: Underlying impairments and functional limitations as indicated above Presentation: Evolving Decision Makin moderate complexity Goals: Goals X1 week 1. Supine-Sit independent 2. Sit-Supine independent 3. Sit-Stand independent 4. Stand-Sit independent 5. Bed-Chair independent 6. Chair-Bed independent 7. Independent gait on level surface with use of least restrictive device for at least 300 feet without report of pain nor dyspnea 8. Independent stair negotiation while holding onto bilateral rails for at least 10 steps without report of pain nor dyspnea 9. Independent with home exercise program 10. Good static and dynamic standing balance/tolerance Plan of Care/Treatment Plan: 1-2x/day, 7 days/week x 1 week. Plan of care has been reviewed with the COMMUNICATIONS EQUIPMENT INSTALLER providing the service under Physical Therapy direction. Initiate Physical Therapy intervention for strengthening, bed mobility, transfers, gait, stairs, balance training, use of assistive device. DISCHARGE RECOMMENDATIONS: Patient will highly benefit from a halfway facility placement in order to maximize functional mobility level, reduce fall risk, and increase ability to continue providing care for her 4-year-old son TREATMENT CODE/TIME: [id number] for 27 minutes beginning at 11:08 AM. Thank you very much for this referral. Patience Ojeda, PT, DPT, CLT [facility]
--- NOTE | 2019-03-30 15:26 | IN_ITS ---
Date of service: 03/29/19 Time of Service: 11:08 PT Notes Inpatient Physical Therapy Evaluation Date: 03/29/2019 Referring Doctor: Tiburcio Ruiz MD PT Orders: PT CONSULT: Arnie Lindquist Precautions: Fall. Standard. Patient Profile/Admitting Diagnosis: Patient is a 33-year-old female with a past medical history significant for chronic complicated migraines, vertigo, depression, PTSD, and chronic L UE weakness who presented to the ED on 03/28/2019 with chief complaints of L LE paralysis and siginifcantly reduced sensation from the left groin down. On record, patient came to the ED on 03/17/2019 with complaints of chronic intarctable headache but left AMA. She states that she has been using a straight cane for indoor and outdoor ambulation for the past 2 weeks and had a near fall when her legs gave out while negotiating several steps two days ago. MRI done on 03/17/2019 was interpreted with absent stroke, negative acute abnormality, nor mass-effect. MRI of thoracic and lumbar spine while at ED on 03/28/2019 showed no evidence of fracture, trauma, nor cord compression. CT of head revealed no acute stroke process, hemorrhage, and abnormality. Of note, patient was seen at out-patient physical therapy for symptoms of dizziness for two sessions, 03/03/2019 and 03/06/19, but with no resolution of symptoms achieved. 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 Prior to two weeks ago, patient was independent with all aspects of ADLs without need for an assistive device nor adaptive equipment. She lives with her 4-year-old son Maxwell and a friend in an apartment. She states that she has 3 children, the other two are not currently in her custody. She states that she enters her apartment through the back which has 1 step to enter. She rides [employer] for all her transportation needs. Current Level of Function: Patient reports needing to use a straight cane for the past 2 weeks and has been having difficulty managing her 4-year-old son. She reports having to stop work 2 weeks ago. She continues to report symptoms of dizziness with positional changes and during quick movements. Equipment Owned/DME: FWW provided during her last ED admission SUBJECTIVE: Patient reports being dizzy when seated up on the edge of the bed from supine. She complained about left low back pain and posterior hip discomfo rt with transfer and ambulation activity. She hopes that she could go home as soon as possible as she has a 4-year-old whom she wants to go back to. OBJECTIVE: General Observation: Patient was seen resting in bed at time of PT evaluation. Obese. Left lower extremity in extreme external rotation at the hip. Mental Status: Alert and oriented x3 Pain: Moderate pain on left lower back and left posterior hip aggravated by transfer and ambulation activity ROM: Right Upper Extremity: Shoulder Flexion WFL. Shoulder abduction WFL. Elbow flexion WFL. Wrist flexion WFL. Functional opening and closing of hand WFL. Left Upper Extremity: Shoulder Flexion 0-100. Shoulder abduction 0-80. Elbow flexion WFL. Wrist flexion WFL. Functional opening and closing of hand WFL. Right Lower Extremity: Hip flexion WFL. Hip abduction WFL. Knee flexion WFL. Ankle dorsiflexion WFL. Ankle plantarflexion WFL. Left Lower Extremity: Hip flexion 0/5. Hip abduction 0/5. Knee flexion 0/5. Ankle dorsiflexion 0/5. Ankle plantarflexion 0/5. Strength: Right Upper Extremity: Shoulder flexors 4/5. Shoulder abductors 4/5. Elbow flexors 4/5. Elbow extensors 5/5. Party Plan Sales Director strong. Left Upper Extremity: Shoulder flexors 3-/5. Shoulder abductors 3-/5. Elbow flexors 3+/5. Elbow extensors 5/5. Party Plan Sales Director strong. Right Lower Extremity: Hip flexors 5/5. Hip abductors 5/5. Knee flexors 5/5. Knee extensors 5/5. Ankle dorsiflexors 5/5. Ankle plantarflexors 5/5. Left Lower Extremity:Hip flexors 5/5. Hip abductors 5/5. Knee flexors 5/5. Knee extensors 5/5. Ankle dorsiflexors 5/5. Ankle plantarflexors 5/5. Sensation: Absent on left LE, diminished on left UE as to pain and pressure. Intact on the R UE/LE. Bed Mobility/Transfers: Supine to sit minimal assist to left LE with HOB 30 degrees Sit to supine minimal assist to left LE with HOB 30 Sit to stand minimal assist with FWW, minimal verbal cues needed for hand placement and walker management Stand to sit minimal assist with FWW, minimal verbal cues needed for hand placement and walker management Bed to chair minimal assist with FWW, minimal verbal cues needed for hand placement and walker management Chair to bed minimal assist with FWW, minimal verbal cues needed for hand placement and walker management Gait: Patient was able to tolerate short distance ambulation using FWW of 4 feet with L foot dragging and left toes striking the floor first as patient has absent dorsiflexion on the left side. Gait deviation notable for increased circ umduction of L LE to attempt to advance limb forward. Hip hiking on the left increased to clear now lengthened LE due to plantarflexed ankle. These compensatory gait pattern resulted to increased report of low back pain and which resulted to report of left low back and left posterior hip pain after gait activity. Patient also reported dizziness during movement transitions and in the upright position. Patient appeared to be able to bear minimal weight onto plantarflexed foot through the toes to advance right foot. Will plan on assessing for appropriate ankle foot orthosis to assist with foot dorsiflexion for safer gait pattern. Will communicate with nursing to defer any walking activity with patient due to high fall risk at this time. Ambulation with therapy only. Transfers only to wheelchair or to bedside commode with assistance of nursing staff. Use cast boot for all transfers. Balance: Static Sitting: Fair Dynamic Sitting: Fair Static Standing: Poor Dynamic Standing: Poor Special Tests: Mobility Limitations Standardized Measure [facility]-PAC 6 clicks Basic Mobility Inpatient Short Form: Raw Score: 16 CMS Score: 54% deficit L Babinski Test Stroking of lateral area of sole of foot from heel to and across medially to the first hallux resulted to extension of hallux and fanning of the other four toes. This was attempted 3 times and elicited same response. L Miracle Test Fanning of L toes elicited with stroking of left medial leg from distal to proximal. Tests for Dizziness Patient demonstrated horizontal nystagmus and reported dizziness with head/neck rotation most notably with rotation to the right. Horizontal nystagmus was also reproduced with lateral gaze toward right side. Upward gaze is normal. VOR is normal. [place]-Halpike test was not tested due to complete paralysis of L LE, complaints of left low back pain, and morbid obesity (will arrange with GAS PUMP ATTENDANT in the next session to attempt to assess). Informed Consent/Education: Patient instructed in purpose of PT consult and plan of care. Assessment: Patient is a 33-year-old female referred to physical therapy services with the diagnosis of L LE paralysis and decreased sensation to L LE wi th test positive for Babinski reflex and reflex suggestive of an upper motor nueron affectation. Patient presents with clinical signs and symptoms consistent with current/admitting diagnoses that have resulted to mobility limitations, gait instability, generalized weakness, and impairment of motor control as demonstrated by the following impairment level findings: 1. Lack of movement on L LE major muscle groups 2. Impaired sitting/standing balance 3. Impaired activity tolerance 4. Limitation of joint range of motion in L LE joints 5. Dizziness Impairments are contributing to the following functional limitations: 1. Dependent bed mobility skills 2. Increased dependence with transfers 3. Inability to safely ambulate without assistive device and physical assistance 4. Increase completion time for mobility ADL performance 5. Increased fall risk 6. Inability to negotiate steps alone safely Patient is assessed as a Moderate 19493 complexity based on the following: History: Diagnosis of left lower extremity paralysis with decreased sensation compounded by obesity, complicated migraines, dizziness, PTSD which resulted to significant mobility impairments as indicated above Examination: Underlying impairments and functional limitations as indicated above Presentation: Evolving Decision Makin moderate complexity Goals: Goals X1 week 1. Supine-Sit independent 2. Sit-Supine independent 3. Sit-Stand independent 4. Stand-Sit independent 5. Bed-Chair independent 6. Chair-Bed independent 7. Independent gait on level surface with use of least restrictive device for at least 300 feet without report of pain nor dyspnea 8. Independent stair negotiation while holding onto bilateral rails for at least 10 steps without report of pain nor dyspnea 9. Independent with home exercise program 10. Good static and dynamic standing balance/tolerance Plan of Care/Treatment Plan: 1-2x/day, 7 days/week x 1 week. Plan of care has been reviewed with the GAS PUMP ATTENDANT providing the service under Physical Therapy direction. Initiate Physical Therapy intervention for strengthening, bed mobility, transfers, gait, stairs, balance training, use of assistive device. DISCHARGE RECOMMENDATIONS: Patient will highly benefit from a care home facility placement in order to maximize functional mobility level, reduce fall risk, and increase ability to continue providing care for her 4-year-old son TREATMENT CODE/TIME: [id number] for 27 minutes beginning at 11:08 AM. Thank you very much for this referral. Patience Ojeda, PT, DPT, CLT [facility]
--- NOTE | 2019-03-30 16:11 | W.PM.PROGNOT ---
Date of Service Date of service: 03/30/19 Time of Service: 16:11 Assessment and Plan (1) Paralysis of left lower extremity: Current visit: Yes Status: Acute (2) Headache: Current visit: Yes Status: Chronic (3) Vertigo: Current visit: Yes Status: Chronic (4) Cervical myelopathy: Current visit: Yes Status: Acute Ms. Blood is a 33-year-old, right-handed woman with a 6-week history of persistent and progressive vertigo, nausea, and vomiting with further progressive symptoms including left hemiparesis and hemianesthesia in the setting of acute on chronic headaches. She has had an extensive neurological work-up including an MRI/MRA head, MRI cervical spine, MRI thoracic spine, and MRI lumbar spine as well as laboratory work-up. Findings were significant for only a large C5-6 disc bulge causing cord compression without cord signal changes. She has hyperreflexia on exam but no other myelopathic symptoms. Her clinical history is most consistent with atypical/complex migraine plus or minus conversion disorder. I recommend continued treatment with doxepin, hydroxyzine, magnesium, and Compazine and/or Imitrex as needed which are working for her. Continue physical therapy. Consider psychiatry consultation. I will sign off at this time. Please call with any further questions or concerns. She should follow-up in the neurology clinic in 4 to 6 weeks. DISCLAIMER: This note was created using [employer] voice recognition software. Subjective Interval history since last seen: Ms. Blood notes improved headaches with the steroids and Imitrex. She continues to have headaches however. Dizziness is also better but still present. Last night she developed tingling in the left arm for which she was started on steroids. She continues to have this as well as left arm and leg weakness, unchanged, and numbness in the left leg unchanged. She has been working with physical therapy and now has a boot to help support her ankle when ambulating. She has significant psychosocial stressors at this time. Exam Narrative Exam Narrative: Physical Exam: Constitutional: Patient of apparent stated age, well nourished, well developed, no acute distress; she appears much better today Neuro: MS/Language/Speech: Alert, oriented, clear language (fluency and comprehension), no dysarthria Motor: Normal bulk and tone. FMM slightly reduced on the left, no pronator drift. 5/5 strength in RUE and RLE. Poor effort in LUE, but no drift noted. No movement in LLE. Coordination: Finger to nose performed without dysmetria Gait: Deferred Objective Objective Clinical Data: Vital Signs Temperature 36.8 C 03/30/19 07:30 Temperature Source Tympanic 03/30/19 07:30 Pulse 78 03/30/19 07:30 Pulse Rhythm Regular 03/30/19 00:00 Respiratory Rate 18 03/30/19 07:30 Respiratory Effort Non-Labored 03/30/19 00:00 Respiratory Depth Normal 03/30/19 00:00 Respiratory Pattern Normal 03/30/19 00:00 Blood Pressure 143/87 H 03/30/19 07:30 Blood Pressure Mean 73 03/28/19 15:04 Blood Pressure Position Sitting 03/28/19 09:57 Pulse Oximetry 98 03/30/19 07:30 Oxygen Delivery Method Room Air 03/30/19 07:30 Oxygen Flow Rate 0 03/30/19 07:30 Pain Level 0 03/30/19 13:11 Comment 03/30/19 07:30 Intake & Output 03/29/19 03/30/19 03/30/19 23:59 11:59 23:59 Intake Total 881.25 / 2901.25 2048.75 / 2048.75 Output Total 1050 / 1050 2200 / 3300 1100 / 3300 Balance -168.75 / 1851.25 -151.25 / -1251.25 -1100 / -1251.25 Intake: IV 281.25 / 1281.25 728.75 / 728.75 Oral 600 / 1620 1320 / 1320 Output: Urine 1050 / 1050 2200 / 3300 1100 / 3300 Other: Urine Color Straw Straw Yellow Urine Appearance Clear Clear Clear Urine Odor Normal Normal Normal Comment patient on menses voided 500cc prior Stool Size Small Stool Characteristics Formed Hard Voiding Methods Bedside Commode Bedside Commode Bedside Commode Diaper Incontinent Laboratory Results WBC 8.11 k/cumm (4.4-10.8) 03/28/19 10:55 RBC 4.31 m/cumm (4.00-5.20) 03/28/19 10:55 Hgb 13.6 g/dL (12.0-15.5) 03/28/19 10:55 Hct 39.9 % (36.0-46.0) 03/28/19 10:55 MCV 92.6 fL (80-95) 03/28/19 10:55 MCH 31.6 pg (27.0-33.0) 03/28/19 10:55 MCHC 34.1 g/dL (32.0-36.0) 03/28/19 10:55 RDW 13.8 % (11.7-14.6) 03/28/19 10:55 Plt Count 223 x1000/uL (130-400) 03/28/19 10:55 MPV 10.6 fL (8.0-11.0) 03/28/19 10:55 Immature Gran % 0.6 03/28/19 10:55 Neutrophils % 53.7 03/28/19 10:55 Lymphocytes % 32.3 03/28/19 10:55 Monocytes % 9.9 03/28/19 10:55 Eosinophils % 3.3 03/28/19 10:55 Basophils % 0.2 03/28/19 10:55 Absolute Neutrophils 4.35 k/cumm (1.2-6.7) 03/28/19 10:55 Absolute Lymphocytes 2.62 k/cumm (1.2-3.4) 03/28/19 10:55 Absolute Monocytes 0.80 k/cumm (0.11-0.7) H 03/28/19 10:55 Absolute Eosinophils 0.27 k/cumm (0.0-0.7) 03/28/19 10:55 Absolute Basophils 0.02 k/cumm (0.0-0.2) 03/28/19 10:55 Sodium 138 mmol/L (136-145) 03/28/19 10:55 Potassium 4.3 mmol/L (3.5-5.1) 03/28/19 10:55 Chloride 103 mmol/L (98-107) 03/28/19 10:55 Carbon Dioxide 25.4 mmol/L (21.0-32.0) 03/28/19 10:55 Anion Gap 9.6 mmol/L (3-11) 03/28/19 10:55 BUN 9 mg/dL (7-18) 03/28/19 10:55 Creatinine 0.66 mg/dL (0.55-1.02) 03/28/19 10:55 Estimated GFR/1.73 m2 >= 60.00 (mL/min/1.73m2) 03/28/19 10:55 Glucose 96 mg/dL (70-100) 03/28/19 10:55 Calcium 8.5 mg/dL (8.5-10.1) 03/28/19 10:55 Total Bilirubin 0.2 mg/dL (0.2-1.0) 03/28/19 10:55 AST 106 U/L (15-37) H 03/28/19 10:55 ALT 213 U/L (12-78) H 03/28/19 10:55 Alkaline Phosphatase 79 U/L (46-116) 03/28/19 10:55 Total Protein 7.4 g/dL (6.4-8.2) 03/28/19 10:55 Albumin 3.4 g/dL (3.4-5.0) 03/28/19 10:55
[2019-03-30 16:28] VITALS: BP 141/82; PULSE 85; RESP 19; TEMP 37.2; O2SAT 95
[2019-03-30] MEDS: Enoxaparin 40 MG/0.4 ML SYR SC (17:44)
[2019-03-30] MEDS: Acetaminophen 325 MG TAB PO (20:57)
[2019-03-30 21:03] VITALS: BP 144/85; PULSE 66; RESP 20; TEMP 37; O2SAT 97
[2019-03-31] MEDS: Levothyroxine 50 MCG TAB PO (04:58)
[2019-03-31] MEDS: Acetaminophen 325 MG TAB PO (04:58)
[2019-03-31] MEDS: MAGNESIUM SULFATE 1 GM/100 ML BAG IVPB ×2 (04:59→11:02)
[2019-03-31 05:05] VITALS: BP 152/80; PULSE 90; RESP 18; TEMP 36.9; O2SAT 97
[2019-03-31] MEDS: hydrOXYzine HCL 25 MG TAB PO (06:48)
[2019-03-31] MEDS: Doxepin 50 MG CAP PO ×2 (06:49→12:08)
[2019-03-31 07:17] LABS: Platelet Count 228 x1000/uL (130-400)
[2019-03-31 07:20] VITALS: BP 134/67; PULSE 67; RESP 22; TEMP 36.9; O2SAT 96
[2019-03-31 08:00] VITALS: O2SAT 96
[2019-03-31] MEDS: FLUoxetine 20 MG CAP 60 MG PO (08:36)
[2019-03-31] MEDS: DEXAMETHASONE 5 MG PO ×2 (08:38→13:27)
[2019-03-31] MEDS: Ibuprofen 400 MG TAB PO (08:38)
[2019-03-31] MEDS: Aspirin 81 MG CHEW PO (08:38)
[2019-03-31] MEDS: Pantoprazole 40 MG VIAL IVP (09:21)
[2019-03-31] MEDS: Normal Saline Flush 10 ML SYR IVP (09:21)
--- NOTE | 2019-03-31 09:50 | OT.INTREAT ---
Date of service: 03/31/19 Time of Service: 08:50 Occupational Therapy Notes Occupational Therapy Inpatient Treatment Note Date: 03/31/19 PRECAUTIONS: Fall, Standard SUBJECTIVE: Pt was sitting in chair when OT arrived. She was agreeable to OT session, reporting that she feels like she has been in the hospital for a week at this point. OBJECTIVE: PAIN:no c/o pain FUNCTIONAL MOBILITY Sit-stand: (S) with VC Stand-sit: (S) with VC DRESSING: Sitting in chair with mod vc Upper Extremity: NT Lower Extremity: Pt was trained and educated in adaptive equipment including the shoe horn, leg fire fighter airport, heavy equipment diesel mechanic, sock aid, dressing stick. In sitting pt was able to (I) don and doff (R) sock and shoe with use of shoe horn and sock aid. Then pt performed donning and doffing sock on (L) LE which required the leg fire fighter airport and sock aid which pt was able to perform (I). Next pt was trained in donning and doffing (L) boot which she performed 4x with good technique with use of leg fire fighter airport, dressing stick and heavy equipment diesel mechanic. She required VC throughout. Pt donned her pants with use of leg fire fighter airport and dressing stick. She performed this with fair technique but was able to perform and pull up her pants (I). ASSESSMENT/PLAN: Pt was receptive to adaptive equipment training, she was able to perform with increased (I) for LE dressing. She did require mod vc throughout and multiple trials to perform. This was performed in seated position. OT at this time still recommends SNF to increase pts functional activity tolerance and (I) in her ADLs/IADLs. OT will continue to progress pt towards goals established at initial evaluation. TREATMENT CODES/TIME: [id number], 55 minutes (08:50) Maddy Alvarez OTR/L [facility]
--- NOTE | 2019-03-31 09:56 | OTTR_ITS ---
Date of service: 03/31/19 Time of Service: 08:50 Occupational Therapy Notes Occupational Therapy Inpatient Treatment Note Date: 03/31/19 PRECAUTIONS: Fall, Standard SUBJECTIVE: Pt was sitting in chair when OT arrived. She was agreeable to OT session, reporting that she feels like she has been in the hospital for a week at this point. OBJECTIVE: PAIN:no c/o pain FUNCTIONAL MOBILITY Sit-stand: (S) with VC Stand-sit: (S) with VC DRESSING: Sitting in chair with mod vc Upper Extremity: NT Lower Extremity: Pt was trained and educated in adaptive equipment including the shoe horn, leg bond runner, ball racker, sock aid, dressing stick. In sitting pt was able to (I) don and doff (R) sock and shoe with use of shoe horn and sock aid. Then pt performed donning and doffing sock on (L) LE which required the leg bond runner and sock aid which pt was able to perform (I). Next pt was trained in donning and doffing (L) boot which she performed 4x with good technique with use of leg bond runner, dressing stick and ball racker. She required VC throughout. Pt donned her pants with use of leg bond runner and dressing stick. She performed this with fair technique but was able to perform and pull up her pants (I). ASSESSMENT/PLAN: Pt was receptive to adaptive equipment training, she was able to perform with increased (I) for LE dressing. She did require mod vc throughout and multiple trials to perform. This was performed in seated position. OT at this time still recommends SNF to increase pts functional activity tolerance and (I) in her ADLs/IADLs. OT will continue to progress pt towards goals established at initial evaluation. TREATMENT CODES/TIME: [id number], 55 minutes (08:50) Maddy Alvarez OTR/L [facility]
--- NOTE | 2019-03-31 13:51 | W.PM.DS.N ---
Date of service: 03/31/19 Time of Service: 13:52 DS: Diagnosis Discharge Diagnosis (1) Paralysis of left lower extremity: Status: Acute (2) Headache: Status: Chronic (3) Vertigo: Status: Chronic (4) Cervical myelopathy: Status: Acute Discharge Plan Disposition Patient Disposition: SNF (LEVEL [facility]) [facility] Condition: Stable Discharge Details Reason For Visit: LOWER EXTREMITY PARASTHESIA/WEAKNESS Admit Date/Time: 03/29/19 14:20 Admit Provider: Tiburcio Ruiz Attending Provider: Tiburcio Ruiz Primary Care Provider: Syeda Sanches Hospital Course Hospital Course: Chief Complaint: Left Leg Paralysis HPI: 33-year-old woman with a past medical history significant for depression, PTSD, and chronic LUE weakness, being admitted from [facility] Emergency Department on 03/28 for LLE Paralysis. Ms. Greenwood has a prior history significant for chronic complicated migraines, morbid obesity, vertigo, PTSD, depression and hypothyroidism. She is noted to have chronic LUE weakness for the last few months. The patient was admitted earlier this month with Intractable Headaches with vomiting, and prior to leaving [facility] complained of a RLE Weakness. She follows with Neurology at [facility], Dr. Marin. The patient presented to the ED with reported acute onset Left Lower Extremity Paralysis. She was reportedly ambulating with her cane when her LLE 'gave out', with concurrent reported of loss of sensation as well. Work-up was noteworthy for essentially normal labs with the exception of chronic appearing transaminitis (although with LFTs worse than prior), normal head CT, and mild right sided L3-5 neural foraminal narrowing without evidence of stenosis by MRI of the lumbar and thoracic spine. Her exam was notable for decreased sensation, but with an intact patellar reflexes and normal rectal tone in the ED. MRI of the brain from 03/17 was reviewed and negative as well. [facility] neurology was consulted, reportedly believing symptoms to be atypical for Cauda Equina Syndrome, essentially ruled out by MRI, with differential including a Conversion Disorder. Recommendations were for PT/OT and further neurology evaluation. Ms. Greenwood was admitted for further evaluation and treatment. Based on local neurology's recommendation an MRI of the CSpine was obtained, results showing a significant C5-6 disc herniation with resultant cord deformity but without an intracord signal abnormality. She was also noted to have a positive Babinski response on her left foot, normal in the right. Repeat MRI of the brain with and without contrast were negative for pathology. Patient continues to report no change in her overall symptoms, with continued LLE paralysis, LUE weakness, and headache. She is now also complaining of LUE paresthesias and subjective 'tingling' in her inguinal region with difficulty urinating. No other events reported. She remains afebrile. (1) Paralysis of left lower extremity: Somewhat atypical presentation and symptoms - not consistent with trauma, and imaging ruled out any spinal pathology at the Thoracic and Lumbar level, with CSpine imaging showing cord compression at C5-6 due to disc bulge, without cord signal abnormality. Recent MRI Brain negative - given positive Babinski response repeat imaging with MRI with/without contrast as well as an MRA was obtained, essentially unremarkable. Complex symptoms of LUE weakness with paresthesias, LLE Flaccid Paralysis and loss of sensation, and Inguinal paresthesias in patient with significant headaches and Vertigo. Per discussion with Neurology at [facility] Atypical Migraine and Conversion Disorder are on the differential, with recommendations for aggressive treatment of patient's underlying headaches. Dr. Frye from [facility] Neurology reported as well that the patient has received an extensive neurologic work-up, with findings only of a C5-6 Disc Bulge with concurrent cord compression without cord signal changes, with clinical history most consistent with atypical/complex migraine +/- conversion disorder. Discussed case with [facility] as patient has a neurologist there. Plan will be to continue on Doxepin, Hydroxyzine, and Sumatriptan, and consider addition of Compazine vs. Reglan for breakthrough symptoms, discharge to SNF for continued skilled PT, with follow-up with Dr. Marin of Neurology at [facility] on 04/14/2019 at 1:30pm, with an MRI scheduled prior to her visit. Following that the decision will be made on whether or not to see neurosurgery as well. Her steroid will be tapered over the next week. She was deemed appropriate for outpatient work-up and follow-up as opposed to inpatient transfer. This was discussed with the patient and she is in agreement of the plan. Home Meds and New Rx's Prescriptions: New acetaminophen [Tylenol] 325 mg Tablet 325 - 650 mg PO Q4H PRN PRNQty: 0 RF: 0 dexamethasone 1 mg tablet 1 mg PO DAILY Qty: 1 RF: 0 doxepin 50 mg Capsule 50 mg PO Q6H Qty: 0 RF: 0 hydroxyzine HCl 25 mg Tablet 25 mg PO QID PRN PRNQty: 0 RF: 0 Continued fluoxetine [Prozac] 40 mg capsule 60 mg PO DAILY RF: 0 meclizine 25 mg tablet 25 mg PO TID PRN (Reason: dizziness) Qty: 14 RF: 0 ibuprofen 400 mg Tablet 400 mg PO BID RF: 0 aspirin 81 mg Tablet,Chewable 81 mg PO DAILY RF: 0 ranitidine HCl [Zantac] 150 mg Tablet 150 mg PO BID RF: 0 levothyroxine 50 mcg Tablet 50 mcg PO DAILY RF: 0 albuterol sulfate 90 mcg/actuation Hfa Aerosol Inhaler 2 puff Inhalation PRN PRNRF: 0 prochlorperazine maleate [Compazine] 10 mg tablet 10 mg PO TID PRN (Reason: nausea and vomiting) Qty: 10 RF: 0 Discontinued medroxyprogesterone [Provera] 10 mg tablet 10 mg PO DAILY Qty: 10 RF: 0 Discharge Instructions Activity:: As per PT recommendations Equipment/Supplies:: No Equipment Needed Diet:: As Tolerated Discharge Orders Discharge Orders: Discharge Order (Routine); Ordered 03/31/19 Ordered By: Tiburcio Ruiz DS: Data Vitals/I&O Vitals and I&O: Vital Signs Temperature 36.9 C 03/31/19 07:20 Temperature Source Tympanic 03/31/19 07:20 Pulse 67 03/31/19 07:20 Pulse Rhythm Regular 03/30/19 21:03 Respiratory Rate 22 03/31/19 07:20 Respiratory Effort 03/31/19 11:18 Respiratory Depth Shallow 03/31/19 11:18 Respiratory Pattern Normal 03/31/19 11:18 Blood Pressure 134/67 03/31/19 07:20 Blood Pressure Mean 73 03/28/19 15:04 Blood Pressure Position Sitting 03/28/19 09:57 Pulse Oximetry 96 03/31/19 08:00 Oxygen Delivery Method Room Air 03/31/19 08:00 Oxygen Flow Rate 0 03/31/19 08:00 Pain Level 10 03/31/19 06:55 Comment 03/30/19 07:30 Intake & Output 03/30/19 03/31/19 03/31/19 23:59 11:59 23:59 Intake Total 1620 / 3668.75 850 / 1090 240 / 1090 Output Total 2700 / 4900 550 / 550 Balance -1080 / -1231.25 300 / 540 240 / 540 Intake: IV 1200 / 1928.75 200 / 200 Oral 420 / 1740 650 / 890 240 / 890 Output: Urine 2700 / 4900 550 / 550 Other: Urine Color Yellow Yellow Urine Appearance Clear Clear Urine Odor Foul Comment voided 500cc prior Incontinent xlg amount. Bed changed. Voiding Methods Bedside Commode Bedside Commode Completed studies during hospitalization [Text1]: Exam(s) 03/28/2019 a MRI:MR lumbar spine wo a MRI:MR thoracic spine wo SYMPTOMS/DIAGNOSIS: LEFT LOWER EXTREMITY PARALYSIS AND ANESTHESIA SINCE YESTERDAY, NO TRAUMA MRI OF THE THORACIC SPINE: The exam is limited by the patient's body habitus and motion. T1, T2, STIR and T2 3D sagittal and T2 axial sequences were performed. The marrow signal and cord signal appear normal. The intervertebral discs are intact. There is no evidence of significant disc bulging, central canal stenosis or neural foraminal narrowing. There is no evidence of a paraspinal mass. IMPRESSION: Negative MRI of the thoracic spine. MRI OF THE LUMBAR SPINE: Comparison is made with plain films dated March,. T1, T2, STIR sagittal and T1 and T2 axial sequences were performed. The marrow signal is normal. The T12-L1 through L2-3 discs show normal height and hydration. The L3-4 disc shows slight bulging. There are facet degenerative changes, greater on the right side. There is mild right neural foraminal narrowing. At L4-5, there is mild disc bulging and partial disc desiccation. There are facet degenerative changes, which are prominent on the right side, causing mild neural foraminal narrowing. There are mild left facet degenerative changes, but no significant left neural foraminal narrowing. There is mild central canal stenosis. The L5-S1 disc appears intact. There is no neural foraminal narrowing or central canal stenosis. No paraspinal masses are seen. The conus medullaris appears normal. The aorta is normal in diameter. IMPRESSION: Mild degenerative disc changes at L3-4 and L4-5. There are facet degenerative changes on the right at these levels, which cause mild neural foraminal narrowing. Exam(s) 03/28/[address]:CT head wo SYMPTOMS/DIAGNOSIS: LEFT LEG PARALYSIS NONCONTRAST HEAD CT: Comparison is made with March,. No intracranial hemorrhage, mass or infarct is seen. The ventricles are normal in size. There is no evidence of skull fracture. There is a minimal mucus retention cyst in the left maxillary sinus. The mastoid air cells appear clear. IMPRESSION: Negative head CT. Exam(s) 03/29 a MRI:MR cervical spine wo SYMPTOM/DIAGNOSIS: LT LEG WEAKNESS CERVICAL SPINE MRI: MR examination of the cervical spine was performed according to the usual protocol. The examination is technically limited due to motion. There is loss of the cervical lordosis. No definite bony signal abnormality is seen. There is a large disc herniation at C 5-6 which is predominantly left paracentral. This has increased significantly in size in comparison with previous examination of 07/05/17. No other significant disc herniation identified. No significant bony central canal stenosis seen. Neural foramina are not well visualized but there is suggestion of bilateral neural foraminal narrowing at C 5-6, remaining vertebral levels show probably normal neural foramina. No intracord signal abnormality is seen. Cord deformity is noted anteriorly at C 5-6. CONCLUSION: Large left paracentral disc herniation at C 5-6 with resultant cord deformity. No intracord signal abnormality is seen. Mild bilateral neural foraminal narrowing also appears to be present at C 5-6. The findings are much more prominent than on previous MR of 07/05/17. Exam(s) a MRI:MR angio brain wo a MRI:MR brain wo/w SYMPTOM/DIAGNOSIS: LLE PARALYSIS, ? MS MR ANGIOGRAPHY [place]: MR angiography of the region of the [place] was performed according to the usual protocol. The examination is limited by motion artifact. Distal vertebral arteries and the basilar artery are grossly unremarkable, no evidence of aneurysm, stenosis or dissection. Intracranial internal carotid arteries are unremarkable with no evidence of significant stenosis, aneurysm or dissection. Middle, anterior and posterior cerebral arteries grossly intact bilaterally with no evidence of stenosis, aneurysm or dissection. CONCLUSION: Somewhat limited study but negative MR angiogram [place]. BRAIN MRI: MR examination of the brain was performed according to the usual protocol with additional post contrast coronal and axial T 1 weighted imaging and sagittal FLAIR imaging. No signal abnormality identified in the brain. No mass lesion or enhancing lesion. The orbital and temporal bone structures appear intact as does the pituitary. Diffusion weighted imaging shows no evidence of infarction. Susceptibility weighted imaging shows no evidence of intracranial hemorrhage. CONCLUSION: Negative brain MRI. Labs on day of discharge: Labs from last 24 hours 03/31/19 06:35 Plt Count 228 PFSH Medical History Obesity, morbid, BMI 50 or higher (Chronic) Transaminitis (Chronic) Headache (Chronic) Vertigo (Chronic) PTSD (post-traumatic stress disorder) (Chronic) Depression (Chronic) Hypothyroid (Chronic) Mixed incontinence (Acute) Nephrolithiasis (Chronic) Surgical History Amblyopia (Acute) S/P bilateral breast reduction (Acute) S/P left knee surgery (Acute) History of delivery (Inactive) Tubal ligation status (Inactive) Family History Father Thyroid disorder Cirrhosis Mother Cirrhosis Social History Smoking/Tobacco Use Status: Former Tobacco Use Alcohol Intake: never Drug use: Never Household members: friend(s) Number of Children: 3 current occupation: [employer]ING [employer] at [employer] Do you feel safe at home: Yes Do you feel safe in your relationship?: Yes Additional Social history: 1 kid lives with her. Female Reproductive History Menstrual control method: permanent sterilization (BTL approx 4 years ago) History History 1 Para 1 Hx # Term Pregnancies Multiple births Hx # Pregnancies Ectopic pregnancies AB induced Hx Number of Living Children AB spontaneous
--- NOTE | 2019-03-31 13:58 | DSE_ITS ---
Date of service: 03/31/19 Time of Service: 13:52 DS: Diagnosis Discharge Diagnosis (1) Paralysis of left lower extremity: Status: Acute (2) Headache: Status: Chronic (3) Vertigo: Status: Chronic (4) Cervical myelopathy: Status: Acute Discharge Plan Disposition Patient Disposition: SNF (LEVEL 1) [facility] Condition: Stable Discharge Details Reason For Visit: LOWER EXTREMITY PARASTHESIA/WEAKNESS Admit Date/Time: 03/29/19 14:20 Admit Provider: Tiburcio Ruiz Attending Provider: Tiburcio Ruiz Primary Care Provider: Syeda Sanches Hospital Course Hospital Course: Chief Complaint: Left Leg Paralysis HPI: 33-year-old woman with a past medical history significant for depression, PTSD, and chronic LUE weakness, being admitted from [facility] Emergency Department on 03/28 for LLE Paralysis. Ms. Greenwood has a prior history significant for chronic complicated migraines, morbid obesity, vertigo, PTSD, depression and hypothyroidism. She is noted to have chronic LUE weakness for the last few months. The patient was admitted earlier this month with Intractable Headaches with vomiting, and prior to leaving [place] complained of a RLE Weakness. She follows with Neurology at [facility], Dr. Marin. The patient presented to the ED with reported acute onset Left Lower Extremity Paralysis. She was reportedly ambulating with her cane when her LLE 'gave out', with concurrent reported of loss of sensation as well. Work-up w as noteworthy for essentially normal labs with the exception of chronic appearing transaminitis (although with LFTs worse than prior), normal head CT, and mild right sided L3-5 neural foraminal narrowing without evidence of stenosis by MRI of the lumbar and thoracic spine. Her exam was notable for decreased sensation, but with an intact patellar reflexes and normal rectal tone in the ED. MRI of the brain from 03/17 was reviewed and negative as well. [facility] neurology was consulted, reportedly believing symptoms to be atypical for Cauda Equina Syndrome, essentially ruled out by MRI, with differential including a Conversion Disorder. Recommendations were for PT/OT and further neurology evaluation. Ms. Greenwood was admitted for further evaluation and treatment. Based on local neurology's recommendation an MRI of the CSpine was obtained, results showing a significant C5-6 disc herniation with resultant cord deformity but without an intracord signal abnormality. She was also noted to have a po sitive Babinski response on her left foot, normal in the right. Repeat MRI of the brain with and without contrast were negative for pathology. Patient continues to report no change in her overall symptoms, with continued LLE paralysis, LUE weakness, and headache. She is now also complaining of LUE paresthesias and subjective 'tingling' in her inguinal region with difficulty urinating. No other events reported. She remains afebrile. (1) Paralysis of left lower extremity: Somewhat atypical presentation and symptoms - not consistent with trauma, and imaging ruled out any spinal pathology at the Thoracic and Lumbar level, with CSpine imaging showing cord compression at C5-6 due to disc bulge, without cord signal abnormality. Recent MRI Brain negative - given positive Babinski response repeat imaging with MRI with/without contrast as well as an MRA was obtained, essentially unremarkable. Complex symptoms of LUE weakness with paresthesias, LLE Flaccid Paralysis and loss of sensation, and Inguinal paresthesias in patient with significant headaches and Vertigo. Per discussion with Neurology at [facility] Atypical Migraine and Conversion Disorder are on the differential, with recommendations for aggressive treatment of patient's underlying headaches. Dr. Frye from [facility] Neurology reported as well that the patient has received an extensive neurologic work-up, with findings only of a C5-6 Disc Bulge with concurrent cord compression without cord signal changes, with clinical history most consistent with atypical/complex migraine +/- conversion disorder. Discussed case with [facility] as patient has a neurologist there. Plan will be to continue on Doxepin, Hydroxyzine, and Sumatriptan, and consider addition of Compazine vs. Reglan for breakthrough symptoms, discharge to SNF for continued skilled PT, with follow-up with Dr. Marin of Neurology at [facility] on 04/14/2019 at 1:30pm, with an MRI scheduled prior to her visit. Following that the decision will be made on whether or not to see neurosurgery as well. Her steroid will be tapered over the next week. She was deemed appropriate for outpatient work-up and follow-up as opposed to inpatient transfer. [facility] is in agreement of the plan. Home Meds and New Rx's Prescriptions: New acetaminophen [Tylenol] 325 mg Tablet 325 - 650 mg PO Q4H PRN PRNQty: 0 RF: 0 dexamethasone 1 mg tablet 1 mg PO DAILY Qty: 1 RF: 0 doxepin 50 mg Capsule 50 mg PO Q6H Qty: 0 RF: 0 hydroxyzine HCl 25 mg Tablet 25 mg PO QID PRN PRNQty: 0 RF: 0 Continued fluoxetine [Prozac] 40 mg capsule 60 mg PO DAILY RF: 0 meclizine 25 mg tablet 25 mg PO TID PRN (Reason: dizziness) Qty: 14 RF: 0 ibuprofen 400 mg Tablet 400 mg PO BID RF: 0 aspirin 81 mg Tablet,Chewable 81 mg PO DAILY RF: 0 ranitidine HCl [Zantac] 150 mg Tablet 150 mg PO BID RF: 0 levothyroxine 50 mcg Tablet 50 mcg PO DAILY RF: 0 albuterol sulfate 90 mcg/actuation Hfa Aerosol Inhaler 2 puff Inhalation PRN PRNRF: 0 prochlorperazine maleate [Compazine] 10 mg tablet 10 mg PO TID PRN (Reason: nausea and vomiting) Qty: 10 RF: 0 Discontinued medroxyprogesterone [Provera] 10 mg tablet 10 mg PO DAILY Qty: 10 RF: 0 Discharge Instructions Activity:: As per PT recommendations Equipment/Supplies:: No Equipment Needed Diet:: As Tolerated Discharge Orders Discharge Orders: Discharge Order (Routine); Ordered 03/31/19 Ordered By: Tiburcio Ruiz DS: Data Vitals/I&O Vitals and I&O: Vital Signs Temperature 36.9 C 03/31/19 07:20 Temperature Source Tympanic 03/31/19 07:20 Pulse 67 03/31/19 07:20 Pulse Rhythm Regular 03/30/19 21:03 Respiratory Rate 22 03/31/19 07:20 Respiratory Effort 03/31/19 11:18 Respiratory Depth Shallow 03/31/19 11:18 Respiratory Pattern Normal 03/31/19 11:18 Blood Pressure 134/67 03/31/19 07:20 Blood Pressure Mean 73 03/28/19 15:04 Blood Pressure Position Sitting 03/28/19 09:57 Pulse Oximetry 96 03/31/19 08:00 Oxygen Delivery Method Room Air 03/31/19 08:00 Oxygen Flow Rate 0 03/31/19 08:00 Pain Level 10 03/31/19 06:55 Comment 03/30/19 07:30 Intake & Output 0503/31/19 03/31/19 23:59 11:59 23:59 Intake Total 1620 / 3668.75 850 / 1090 240 / 1090 Output Total 2700 / 4900 550 / 550 Balance -1080 / -1231.25 300 / 540 240 / 540 Intake: IV 1200 / 1928.75 200 / 200 Oral 420 / 1740 650 / 890 240 / 890 Output: Urine 2700 / 4900 550 / 550 Other: Urine Color Yellow Yellow Urine Appearance Clear Clear Urine Odor Foul Comment voided 500cc prior Incontinent xlg amount. Bed changed. Voiding Methods Bedside Commode Bedside Commode Completed studies during hospitalization [Text1]: Exam(s) 03/28/2019 a MRI:MR lumbar spine wo a MRI:MR thoracic spine wo SYMPTOMS/DIAGNOSIS: LEFT LOWER EXTREMITY PARALYSIS AND ANESTHESIA SINCE YESTERDAY, NO TRAUMA MRI OF THE THORACIC SPINE: The exam is limited by the patient's body habitus and motion. T1, T2, STIR and T2 3D sagittal and T2 axial sequences were performed. The marrow signal and cord signal appear normal. The intervertebral discs are intact. There is no evidence of significant disc bulging, central canal stenosis or neural foraminal narrowing. There is no evidence of a paraspinal mass. IMPRESSION: Negative MRI of the thoracic spine. MRI OF THE LUMBAR SPINE: Comparison is made with plain films dated March,. T1, T2, STIR sagittal and T1 and T2 axial sequences were performed. The marrow signal is normal. The T12-L1 through L2-3 discs show normal height and hydration. The L3-4 disc shows slight bulging. There are facet degenerative changes, greater on the right side. There is mild right neural foraminal narrowing. At L4-5, there is mild disc bulging and partial disc desiccation. There are facet degenerative changes, which are prominent on the right side, causing mild neural foraminal narrowing. There are mild left facet degenerative changes, but no significant left neural foraminal narrowing. There is mild central canal stenosis. The L5- S1 disc appears intact. There is no neural foraminal narrowing or central canal stenosis. No paraspinal masses are seen. The conus medullaris appears normal. The aorta is normal in diameter. IMPRESSION: Mild degenerative disc changes at L3-4 and L4-5. There are facet degenerative changes on the right at these levels, which cause mild neural foraminal narrowing. Exam(s) 03/28/[address]:CT head wo SYMPTOMS/DIAGNOSIS: LEFT LEG PARALYSIS NONCONTRAST HEAD CT: Comparison is made with March,. No intracranial hemorrhage, mass or infarct is seen. The ventricles are normal in size. There is no evidence of skull fracture. There is a minimal mucus retention cyst in the left maxillary sinus. The mastoid air cells appear clear. IMPRESSION: Negative head CT. Exam(s) 03/29 a MRI:MR cervical spine wo SYMPTOM/DIAGNOSIS: LT LEG WEAKNESS CERVICAL SPINE MRI: MR examination of the cervical spine was performed according to the usual protocol. The examination is technically limited due to motion. There is loss of the cervical lordosis. No definite bony signal abnormality is seen. There is a large disc herniation at C 5-6 which is predominantly left paracentral. This has increased significantly in size in comparison with previous examination of 07/05/17. No other significant disc herniation identified. No significant bony central canal stenosis seen. Neural foramina are not well visualized but there is suggestion of bilateral neural foraminal narrowing at C 5-6, remaining vertebral levels show probably normal neural foramina. No intracord signal abnormality is seen. Cord deformity is noted anteriorly at C 5-6. CONCLUSION: Large left paracentral disc herniation at C 5-6 with resultant cord deformity. No intracord signal abnormality is seen. Mild bilateral neural foraminal narrowing also appears to be present at C 5-6. The findings are much more prominent than on previous MR of 07/05/17. Exam(s) a MRI:MR angio brain wo a MRI:MR brain wo/w SYMPTOM/DIAGNOSIS: LLE PARALYSIS, ? MS MR ANGIOGRAPHY [place]: MR angiography of the region of the [place] was performed according to the usual protocol. The examination is limited by motion artifact. Distal vertebral arteries and the basilar artery are grossly unremarkable, no evidence of aneurysm, stenosis or dissection. Intracranial internal carotid arteries are unremarkable with no evidence of significant stenosis, aneurysm or dissection. Middle, anterior and posterior cerebral arteries grossly intact bilaterally wit h no evidence of stenosis, aneurysm or dissection. CONCLUSION: Somewhat limited study but negative MR angiogram [place]. BRAIN MRI: MR examination of the brain was performed according to the usual protocol with additional post contrast coronal and axial T 1 weighted imaging and sagittal FLAIR imaging. No signal abnormality identified in the brain. No mass lesion or enhancing lesion. The orbital and temporal bone structures appear intact as does the pituitary. Diffusion weighted imaging shows no evidence of infarction. Susceptibility weighted imaging shows no evidence of intracranial hemorrhage. CONCLUSION: Negative brain MRI. Labs on day of discharge: Labs from last 24 hours 03/31/19 06:35 Plt Count 228 PFSH Medical History Obesity, morbid, BMI 50 or higher (Chronic) Transaminitis (Chronic) Headache (Chronic) Vertigo (Chronic) PTSD (post-traumatic stress disorder) (Chronic) Depression (Chronic) Hypothyroid (Chronic) Mixed incontinence (Acute) Nephrolithiasis (Chronic) Surgical History Amblyopia (Acute) S/P bilateral breast reduction (Acute) S/P left knee surgery (Acute) History of delivery (Inactive) Tubal ligation status (Inactive) Family History Father Thyroid disorder Cirrhosis Mother Cirrhosis Social History Smoking/Tobacco Use Status: Former Tobacco Use Alcohol Intake: never Drug use: Never Household members: friend(s) Number of Children: 3 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 Female Reproductive History Menstrual control method: permanent sterilization (BTL approx 4 years ago) History History 1 Para 1 Hx # Term Pregnancies Multiple births Hx # Pregnancies Ectopic pregnancies AB induced Hx Number of Living Children AB spontaneous
--- NOTE | 2019-03-31 14:22 | PDOC.CMDIS ---
- If Service Date Differs Date of service: 03/31/19 Time of Service: 14:22 LACE Index Scoring Tool - Questions: Length of Stay (in days): 2 Acuity (Admit via E.D.?): Yes E.D. Visits: 8 - Answers: Total Score: 9 Risk of Readmission: Low Risk Care Management Discharge Reason for Hospitalization: Paralysis of left lower extremity Discharge Plan: Tawana will DC to [facility] today via private vehicle. CHRISTINA spoke with [facility], whom has accepted Tawana for 1500. CHRISTINA notified Dr. Ruiz as well a OLIVIA [facility], of the above. Tawana will transport via private vehicle with her friend Trevin. Encouraged Tawana to continue to meet with her therapist in the community regarding recent stressors. SNF forms completed and distributed accordingly. Patient/Family Education Needs: Review DC instructions, any limitations, and discuss Ask Me Three' Services Needed at Discharge: Residential Facility ([facility])
--- NOTE | 2019-03-31 14:25 | CMDISCH_ITS ---
- If Service Date Differs Date of service: 03/31/19 Time of Service: 14:22 LACE Index Scoring Tool - Questions: Length of Stay (in days): 2 Acuity (Admit via E.D.?): Yes E.D. Visits: 8 - Answers: Total Score: 9 Risk of Readmission: Low Risk Care Management Discharge Reason for Hospitalization: Paralysis of left lower extremity Discharge Plan: Tawana will DC to [facility] today via private vehicle. CHRISTINA spoke with [facility], whom has accepted Tawana for 1500. CHRISTINA notified Dr. Ruiz as well a [facility], of the above. Tawana will transport via private vehicle with her friend Trevin. Encouraged Tawana to continue to meet with her therapist in the community regarding recent stressors. SNF forms completed and distributed accordingly. Patient/Family Education Needs: Review DC instructions, any limitations, and discuss Ask Me Three' Services Needed at Discharge: Residential Facility ([facility])
--- NOTE | 2019-03-31 14:43 | CHAPLAIN ---
Tawana was sitting up in her chair when I visited. She said she may be discharged to [facility]. She is hoping to be able to go home for a little while first. I'd just like to be home, and get my things together myself, she said. Her sister is taking care of her son. She has another child that she doesn't have custody of, she said. Tawana said she understands that she needs to work with PT and OT on a regular basis, but was apprehensive about going to a SNF. She said she agreed to it yesterday, but was feeling less comfortable about it today.
--- NOTE | 2019-03-31 15:12 | PT.INTREAT ---
Date of service: 03/31/19 Time of Service: 15:12 PT Notes Inpatient Physical Therapy Treatment Note [facility] Date: 03/31/2019 PRECAUTIONS: Fall, WBAT L SUBJECTIVE: Tawana states that she is getting stronger, and is able to do more independently today. Tawana agrees that short-term rehab would be the best option for her at this point. OBJECTIVE: PAIN: No complaints of pain BED MOBILITY/TRANSFERS Sit-stand: S Stand-sit: S GAIT Assistive Device: FWW Weight bearing: WBAT L Assist: SBA Distance: 20' +5' forward/backward Deviation: Seated rest x1 ASSESSMENT: Patient was able to perform gait training with FWW and walking boot support with SBA. Patient demonstrates improved ability to perform acceleration and mid swing with left lower extremity. Patient would benefit from continued gait and transfer training as well as strengthening for improved mobility and improved ability to perform daily functional tasks at a more independent level. PLAN: As per primary PT TREATMENT CODE/TIME: 20 minutes; [id number]
--- NOTE | 2019-04-03 08:10 | OTDS_ITS ---
Date of service: 04/03/19 Time of Service: 08:08 Occupational Therapy Notes Occupational Therapy Inpatient Discharge Summary Date: 04/03/19 Dates of Service: 03/29/19-04/03/19 Referring Doctor:Tiburcio Ruiz MD OT Orders: RLE weakness Precautions: Fall, Standard PATIENT PROFILE/ADMITTING DIAGNOSIS: Pt is a 33 year old female who was recently admitted to [facility] leaving [facility] about 1 week ago. She presented to the ER on 03/28/19 for paralysis of her (L) LE and weakness of her (L) UE which she has had for a couple weeks now. She underwent an MRI this morning and results are pending at this time. Past Medical History: Medical History Obesity, morbid, BMI 50 or higher (Chronic) Transaminitis (Chronic) Headache (Chronic) Vertigo (Chronic) PTSD (post-traumatic stress disorder) (Chronic) Depression (Chronic) Hypothyroid (Chronic) Surgical History S/P bilateral breast reduction (Acute) History of delivery (Inactive) Tubal ligation status (Inactive) Social History/Home Situation: Pt lives in an apartment with her three year old son and a friend. She notes that she has 3 children, the other two are not currently in her custody. She states that she enters her apartment through the back which has 1 step to enter. She states that she has been performing her functional mobility with a cane. She was given a walker at her last admission. She notes that she is (I) with all ADLs/IADLs prior admission and child rearing for her 3 year old son. She does not drive. She participates in community mobility with [facility] services. She has a tub shower but she states she has to stand to perform bathing which is increased difficulty with decreased safety awareness d/t paralysis of her (L) LE. Equipment owned/DME: Dashawn OSMAN This document serves as a summary of care, no skilled OT services provided for this documentation SUBJECTIVE: NT OBJECTIVE: Dates of Service: 03/29/19-04/03/19 ROM: RUE AROM WFL L UE AROM WFL STRENGTH: RUE 4+/5 throughout globally LUE Shoulder flexion 3-/5, elbow 3/5, change consultant is weak but able to perform FUNCTIONAL MOBILITY/ADLS: Transfers with FWW Supine-sit Min (A) Sit-Stand CGA Stand-sit CGA BATHING Sitting in shower with max (A) Set up with vc Bathing UE (I) Bathing LE (I) DRESSING Sitting position with vc for body positioning Dressing UE (I) don and doffing hospital gown Dressing LE (I) don and doffing (R) sock and mod (I) for (L) BALANCE: Static sitting Good vertigo symptoms with transition Dynamic Sitting Good Vertigo symptoms with transition Static Standing Good Dynamic Standing Fair ASSESSMENT: Patient is a 33-year-old female referred to occupational therapy services with diagnosis of paralysis of the (L) LE. Pt was seen for 3 skilled OT services. She was discharged to the [facility] on 04/01/19. Pt was able to demonstrate increased (I) in ADLs/IADLs. OT will formally discharge pt from skilled OT services. GOALS 1. Transfers SBA FWW- not met 2. Dressing (I) sitting in chair -met with AE 3. Bathing (I) in shower in seated position-met 4. Toileting (I) on toilet- met 5. Eating (I) -met 6. (I) brushing teeth and hair -met PLAN OF CARE/TREATMENT PLAN: Discharge from skilled OT services. DISCHARGE RECOMMENDATIONS Home with HH OT/PT OT recommends a shower bench and grab bars for pts bathing routine to increase pts safety and functional (I). TREATMENT TIME/MINUTES/CODES N/A Maddy Alvarez OTR/[facility]
--- NOTE | 2019-04-03 16:31 | INDS_ITS ---
Date of service: 04/03/19 PT Notes Inpatient Physical Therapy Discharge Summary Dates: 04/03/2019 Dates of Service: 03/29/2019 through 03/31/2019 This is a clinical summary of care provided on the duration of dates listed above. No charge was made in the completion of this documentation. Referring Doctor: Tiburcio Ruiz MD PT Orders: PT CONSULT: Arnie Lindquist Precautions: Fall. Standard. Patient Profile/Admitting Diagnosis: Patient is a 33-year-old female with a past medical history significant for chronic complicated migraines, vertigo, depression, PTSD, and chronic L UE weakness who presented to the ED on 03/28/2019 with chief complaints of L LE paralysis and siginifcantly reduced sensation from the left groin down. On record, patient came to the ED on 03/17/2019 with complaints of chronic intarctable headache but left AMA. She states that she has been using a straight cane for indoor and outdoor ambulation for the past 2 weeks and had a near fall when her legs gave out while negotiating several steps two days ago. MRI done on 03/17/2019 was interpreted with absent stroke, negative acute abnormality, nor mass-effect. MRI of thoracic and lumbar spine while at ED on 03/28/2019 showed no evidence of fracture, trauma, nor cord compression. CT of head revealed no acute stroke process, hemorrhage, and abnormality. Of note, patient was seen at out-patient physical therapy for symptoms of dizziness for two sessions, 03/03/2019 and 03/06/19, but with no resolution of symptoms ac hieved. 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 Prior to two weeks ago, patient was independent with all aspects of ADLs without need for an assistive device nor adaptive equipment. She lives with her 4-year-old son Maxwell and a friend in an apartment. She states that she has 3 children, the other two are not currently in her custody. She states that she enters her apartment through the back which has 1 step to enter. She rides [employer] for all her transportation needs. Current Level of Function: Patient reports needing to use a straight cane for the past 2 weeks and has been having difficulty managing her 4-year-old son. She reports having to stop work 2 weeks ago. She continues to report symptoms of dizziness with positional changes and during quick movements. Equipment Owned/DME: FWW provided during her last ED admission SUBJECTIVE: Patient looks forward to transferring to a SNF to further achieve more independent mobility level. She reports significantly reduced dizziness and only had one episode of headache earlier this morning. She is happy that today she is able to move her left lower extremity more with both hands supported. OBJECTIVE: General Observation: Patient was seen sitting on chair with BLE elevated. Obese. Left lower extremity with Aircast boot on. Mental Status: Alert and oriented x3 Pain: Minimal pain on left lower back and left posterior hip. ROM: Right Upper Extremity: Shoulder Flexion WFL. Shoulder abduction WFL. Elbow flexion WFL. Wrist flexion WFL. Functional opening and closing of hand WFL. Left Upper Extremity: Shoulder Flexion 0-100. Shoulder abduction 0-80. Elbow flexion WFL. Wrist flexion WFL. Functional opening and closing of hand WFL. Right Lower Extremity: Hip flexion WFL. Hip abduction WFL. Knee flexion WFL. Ankle dorsiflexion WFL. Ankle plantarflexion WFL. Left Lower Extremity: Hip flexion 0-10. Hip abduction 0-15. Knee flexion 0-5. Ankle dorsiflexion 0-5 beyond neutral. Ankle plantarflexion 0-5 beyond neutral. Strength: Right Upper Extremity: Shoulder flexors 4/5. Shoulder abductors 4/5. Elbow flexors 4/5. Elbow extensors 5/5. Specification Writer strong. Left Upper Extremity: Shoulder flexors 3-/5. Shoulder abductors 3-/5. Elbow flexors 3+/5. Elbow extensors 5/5. Specification Writer strong. Right Lower Extremity: Hip flexors 5/5. Hip abductors 5/5. Knee flexors 5/5. Knee extensors 5/5. Ankle dorsiflexors 5/5. Ankle plantarflexors 5/5. Left Lower Extremity:Hip flexors 2-/5. Hip abductors 2-/5. Knee flexors 2-/5. Knee extensors 2-/5. Ankle dorsiflexors 1/5. Ankle plantarflexors 1/5. Sensation: Absent on left LE, diminished on left UE as to pain and pressure. Intact on the R UE/LE. Bed Mobility/Transfers: Supine to sit S Sit to supine S Sit to stand S Stand to sit S Bed to chair SBA Chair to bed SBA Gait: With Aircast boot on left LE patient was able to tolerate 20 feet +5 feet of level surface ambulation with weightbearing as tolerated on the left using F WW with standby assist of the MILK RUNNER. THERA EX: Patient tolerated standing level dynamic balance exercises working on weight shifting and lateral trunk leaning to promote clearing of the left LE for advancement during gait. Facilitation of muscle recruitment on the left LE and promotion of controlled stability were also maximize with patient standing on involved left lower extremity while assuming single-limb stance with both upper extremity holding onto a grab bar. Patient was able to tolerate single limb stance on the left x10 reps without signs of left knee and ankle instabilit. Balance: Static Sitting: Good Dynamic Sitting: Good Static Standing: Fair Dynamic Standing: Fair Special Tests: L Babinski Test Stroking of lateral area of sole of foot from heel to and across medially to the first hallux resulted to extension of hallux and fanning of the other four toes. This was attempted 3 times and elicited same response. L Miracle Test Fanning of L toes elicited with stroking of left medial leg from distal to proximal. Informed Consent/Education: Patient instructed in purpose of PT consult and plan of care. Assessment: Patient is a 33-year-old female referred to physical therapy services with the diagnosis of L LE paralysis and decreased sensation to L LE with test positive for Babinski reflex and reflex suggestive of an upper motor nueron affectation. Patient presents with clinical signs and symptoms consistent with current/admitting diagnoses that have resulted to mobility limitations, gait instability, generalized weakness, and impairment of motor control as demonstrated by the following impairment level findings: 1. Lack of movement on L LE major muscle groups 2. Impaired sitting/standing balance 3. Impaired activity tolerance 4. Limitation of joint range of motion in L LE joints 5. Dizziness Impairments are contributing to the following functional limitations: 1. Dependent bed mobility skills 2. Increased dependence with transfers 3. Inability to safely ambulate without assistive device and physical assistance 4. Increase completion time for mobility ADL performance 5. Increased fall risk 6. Inability to negotiate steps alone safely Goals: Goals X1 week 1. Supine-Sit independent MET 2. Sit-Supine independent MET 3. Sit-Stand independent NOT MET 4. Stand-Sit independent NOT MET 5. Bed-Chair independent NOT MET 6. Chair-Bed independent NOT MET 7. Independent gait on level surface with use of least restrictive device for at least 300 feet without report of pain nor dyspnea NOT MET 8. Independent stair negotiation while holding onto bilateral rails for at least 10 steps without report of pain nor dyspnea 9. Independent with home exercise program 10. Good static and dynamic standing balance/tolerance DISCHARGE RECOMMENDATIONS: Patient will highly benefit from a [facility] facility placement in order to maximize functional mobility level, reduce fall risk, and increase ability to continue providing care for her 4-year-old son TREATMENT CODE/TIME: Session 1- 29220?[id number] for 31 minutes. Session 2 with MILK RUNNER. Session 3 NC. Documentation completion only. Thank you very much for this referral. Patience Ojeda, PT, DPT, CLT [facility]
== END 2019-03-31 15:20 | disposition skilled nursing facility (03) | DRG 92 ==
LOC: ER 16:47 → MS 17:31
PROVIDERS: Internal Medicine; Admitting Provider Internal Medicine; Emergency Provider Student in an Organized Health Care Education/Training Program; PCP Nurse Practitioner Family; Visit Provider Internal Medicine
DX: G83.14 Monoplegia of lower limb affecting left nondominant side (principal); Z68.42 Body mass index [BMI] 45.0-49.9, adult; M50.222 Other cervical disc displacement at C5-C6 level; R20.2 Paresthesia of skin; R51 Headache; R42 Dizziness and giddiness; G95.89 Other specified diseases of spinal cord; H55.09 Other forms of nystagmus; E66.01 Morbid (severe) obesity due to excess calories; F32.9 Major depressive disorder, single episode, unspecified; E03.9 Hypothyroidism, unspecified
CPT/HCPCS: 36415; 70544; 70553; 80053; 96365; 97110; 97112; 97162; 97166; 97530; 97535; 99219; 99232; 99233; 99239; 99255; 99285; J1650; 70450; 72141; 72146; 72148; 85025; 85049; 99284; G0378; J0131; J0780; J1100; J1885; J2930; J3475; J8540; L4361

== ENCOUNTER 2020-02-05 19:26 | Outpatient (REF) | payer MEDICAID, SELFPAY ==
[2020-02-08 09:33] LABS: SARS-CoV-2 RNA Undetected (Undetected); SARS-CoV-2 Specimen Source NASOPHARYNGEAL
== END 2020-02-05 19:46 ==
LOC: NCHCN 19:26
PROVIDERS: PCP Nurse Practitioner Family; Visit Provider Physician Assistant
DX: Z20.828 Contact with and (suspected) exposure to other viral communicable diseases (principal); R50.9 Fever, unspecified
CPT/HCPCS: U0003

== ENCOUNTER 2020-06-02 20:45 | Emergency (ER) | payer MEDICAID, SELFPAY ==
[2020-06-02] VITALS (39 sets, daily range): BP systolic 154–228; BP diastolic 77–197; PULSE 73–131; RESP 11–27; TEMP 36.9; O2SAT 94–100
--- NOTE | 2020-06-02 20:58 | W.ED.GENAD ---
Discharge Plan Disposition Patient Disposition: [facility] Condition: Critical Discharge Details Chief Complaint: Allergic Clinical Impression: Anaphylaxis, Angioedema, Airway compromise Primary Care Provider: Syeda Sanches ED Provider: Tray Jimenez Home Meds and New Rx's Prescriptions: No Action fluoxetine [Prozac] 40 mg capsule 60 mg PO DAILY RF: 0 promethazine 25 mg tablet 25 mg PO .q8hr PRN (Reason: nausea and vomiting) Qty: 20 RF: 2 ibuprofen 400 mg Tablet 400 mg PO BID RF: 0 aspirin 81 mg Tablet,Chewable 81 mg PO DAILY RF: 0 ranitidine HCl [Zantac] 150 mg Tablet 150 mg PO BID RF: 0 acetaminophen [Tylenol] 325 mg Tablet 325 - 650 mg PO Q4H PRN PRNQty: 0 RF: 0 levothyroxine 50 mcg Tablet 50 mcg PO DAILY RF: 0 albuterol sulfate 90 mcg/actuation Hfa Aerosol Inhaler 2 puff Inhalation PRN PRNRF: 0 Discharge Data Discharge Date/Time-TO BE ENTERED AT DEPARTURE: 06/03/20 00:45 Medical Decision Making Upon my evaluation, this patient had a high probability of imminent or life-threatening deterioration, which required my direct attention, intervention, and personal management. I have personally provided 45 minutes of critical care time exclusive of time spent on separately billable procedures. Time includes review of laboratory data, radiology results, discussion with consultants, and monitoring for potential decompensation. Interventions were performed as documented. 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 Patient states that 25 minutes prior to arrival she was stung by the right ear from a bee or wasp. She immediately administered her EpiPen and came to the ER for further evaluation. Upon arrival to the ER patient was complaining of swelling for her tongue and her neck, mild difficulty swallowing and no difficulty breathing. She denies any complaints of chest pain, headache, numbness or tingling, abdominal pain, nausea vomiting or diarrhea. She states that this is worse than previous reactions that she has had in the past. She denies any other complaints. She denies any new medications. She denies any other modifying factors. Physical exam demonstrates a small area of erythema on the patient's right side of her neck, where the bee stung her. No evidence of retained stinger. Mild to moderate swelling on the right side of her neck, no stridor. Mild tongue swelling, however no hyper secretions, no signs of severe airway compromise. We will give 0.5 mg of epinephrine IM as the patient's pressure stable, heart rate stable, and it does appear that she is still suffering from mild to moderate symptoms. Protonix, Benadryl and Solu-Medrol also be administered. This time there is no evidence of airway compromise. We will monitor closely and reassess. 9:20pm Patient was reassessed after initial epinephrine IM dose, she states that she is starting to feel slightly better. She states that swelling is not worsening. Reexamination demonstrates minimal improvement of her tongue swelling, no change for her neck swelling. Continues to demonstrate no evidence of stridor or wheezes. Vital signs remained stable. 9:45pm On reassessment the patient is acutely worsening, her neck swelling and tongue swelling seems to be increasing. She still shows no stridor but she is definitely losing vital real estate in her oropharynx. This is in spite of the epinephrine. An additional 0.5 mg was given IM, steroids, H2 nicole, and Benadryl have all been given at this point. With the patient's worsening of her symptomatology, and worsening airway status, I do feel that emergent intubation is indicated at this time. I did discuss the risk and benefits of this with the patient, as well as the concern for complete loss of airway. Shortly. The patient understands this. She agrees to the intubation procedure. Patient was intubated with etomidate and rocuronium. Within 1 to 2 seconds after the complete etomidate dose being pushed the patient had what appeared to be systemic fasciculations. Slightly atypical. Patient was then intubated with a 6 oh tube without complication. Notable decreased real estate in the oropharynx, the epiglottis and surrounding structures were also notably edematous. Tube passed without difficulty or complication. Due to the atypical fasciculations we will get a CT scan of the brain to rule out any acute process intracranially. Unfortunately there are no beds available here at [facility] at this time. We will reach out to [facility] for transfer and admission. 11:36 PM Patient's CTA and CT scan of the head was negative for acute process. Chest x-ray otherwise unremarkable. The patient's ABG does show a pH of 7.2, PCO2 of 6.4. Recommended increase tidal volume, increasing rate to 25, monitoring closely. Will continue to use propofol for sedation, will add fentanyl drip as the patient does seem to be bucking the vent to a degree. We will give a single repeat dose of rocuronium as we transition to the fentanyl drip. Did contact [facility], discussed the case with the ICU, , she agrees with the assessment and plan. No paramedics are available for transport. Will contact [facility] for transport. Patient will be admitted to [facility] ICU under Dr. Hull. I have extensively reviewed the treatment plan with the patient. I have addressed all patient concerns at this time. I have also discussed the plan with the admitting physician and they agree with the current assessment and plan and have agreed to assume responsibility for the patient. All parties demonstrate verbal understanding and agreement with our assessment and plan at this time. Of note I did contact the patient's first contact on her chart, Evelina Odell and discussed the case with her. This is the patient's sister. The patient specifically asked that we contact her only. Her phone number is [phone] Procedure: Endotracheal Intubation Indication: Respiratory Distress A time-out was completed verifying correct patient, procedure, site, positioning, and special equipment if applicable. The patient was placed in a flat position. Sedation was obtained using Etomidate 25mg and paralysis was obtained using Rocuronium 120mg. The patient was easily ventilated using an ambu bag. The CMAC was used and inserted into the oropharynx at which time there was a Grade 1 view of the vocal cords. A 6.0-yoruba endotracheal tube was inserted and visualized going through the vocal cords. Notable edema of the epiglottis and other airway components. The stylette was removed. Colorimetric change was visualized on the CO2 meter. Breath sounds were heard in both lung aquino equally. The endotracheal tube was placed at 22 cm, measured at the teeth. A chest x-ray was ordered to assess for pneumothorax and verify endotrachealtube placement. No pneumothorax was seen and tube was in good position. The patient tolerated the procedure well and there were no complications. IMPRESSION: 1. Endotracheal tube is in position with tip approximately 4 cm above brook. 2. Poor lung expansion on this x-ray. No definable areas of lung consolidation or edema. 3. No pleural effusions. Thank you for allowing us to participate in the care of your patient. Dictated and Authenticated by: Juan Benitez MD 06/02/2020 10:19 PM Eastern Time ([place] & [place]) IMPRESSION: 1. No cerebral artery occlusion. 2. No vascular malformation or aneurysm. 3. No cerebral edema. 4. No intracranial hemorrhage. 5. No hydrocephaly. 6. Endotracheal tube noted. 7. Sinuses and mastoid air cells are clear. Thank you for allowing us to participate in the care of your patient. Dictated and Authenticated by: Juan Benitez MD 06/02/2020 10:54 PM Eastern Time ([place] & [place]) HPI General Date/Time Provider Initiated Documentation: 06/02/20 20:49. 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 Patient states that 25 minutes prior to arrival she was stung by the right ear from a bee or wasp. She immediately administered her EpiPen and came to the ER for further evaluation. Upon arrival to the ER patient was complaining of swelling for her tongue and her neck, mild difficulty swallowing and no difficulty breathing. She denies any complaints of chest pain, headache, numbness or tingling, abdominal pain, nausea vomiting or diarrhea. She states that this is worse than previous reactions that she has had in the past. She denies any other complaints. She denies any new medications. She denies any other modifying factors. Related Data Home Medications Medication Instructions Recorded Confirmed fluoxetine 40 mg capsule 60 mg PO DAILY cap 01/05/19 03/28/19 albuterol sulfate 2 puff INHALATION PRN PRN 03/18/19 03/28/19 levothyroxine 50 mcg PO DAILY 03/18/19 03/28/19 aspirin 81 mg PO DAILY 03/28/19 03/28/19 ibuprofen 400 mg PO BID 03/28/19 03/28/19 ranitidine HCl [Zantac] 150 mg PO BID 03/29/19 03/29/19 acetaminophen [Tylenol] 325 - 650 mg PO Q4H PRN PRN #0 tab 03/31/19 promethazine 25 mg tablet 25 mg PO .q8hr PRN #20 tab 06/05/19 06/05/19 Previous Rx's Medication Instructions Recorded acetaminophen [Tylenol] 325 - 650 mg PO Q4H PRN PRN #0 tab 03/31/19 promethazine 25 mg tablet 25 mg PO .q8hr PRN #20 tab 06/05/19 Allergies Allergy/AdvReac Type Severity Reaction Status Date / Time oxycodone [From Percocet] Allergy Severe Anaphylaxsi Verified 08/24/19 13:52 s General JULIÁN: 3 Review of Systems All systems reviewed & are unremarkable except as noted in HPI and below PFSH Medical History Depression (Chronic) Headache (Chronic) Hypothyroid (Chronic) Mixed incontinence (Acute) bowel and bladder Nephrolithiasis (Chronic) Obesity, morbid, BMI 50 or higher (Chronic) PTSD (post-traumatic stress disorder) (Chronic) Transaminitis (Chronic) Vertigo (Chronic) Surgical History Amblyopia (Acute) s/p surgery as a kid History of delivery (Inactive) X 3 S/P bilateral breast reduction (Acute) S/P left knee surgery (Acute) Tubal ligation status (Inactive) Family History Father Thyroid disorder Cirrhosis Mother Cirrhosis Social History Smoking/Tobacco Use Status: Former Tobacco Use Alcohol Intake: never Drug use: Never Household members: children and friend(s) Housing: apartment Number of Children: 3 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 Female Reproductive History Menstrual control method: permanent sterilization (BTL approx 4 years ago) History History 1 Para 1 Hx # Term Pregnancies Multiple births Hx # Pregnancies Ectopic pregnancies AB induced Hx Number of Living Children AB spontaneous Exam Narrative Exam Narrative: 1.Const: Well-nourished, Well-developed, appearing stated age 2.Eyes: PERRL, no conjunctival injection, and symmetrical lids. 3.ENT: Atraumatic external nose and ears. Moist MM. Neck: trachea midline, No thyromegaly. Mild swelling on the right side of the patient's neck. Small amount of redness inferior to the right ear, no evidence of retained stinger. No tracheal deviation. Mild swelling of the patient's tongue, posterior oropharynx visible and clear otherwise. No severe angioedema. 4.CVS: +S1/S2, No murmurs or gallops. Peripheral pulses 2+ and equal in all extremities. Brisk capillary refill in all extremities. 5.RESP: Unlabored respiratory effort. Clear to auscultation bilaterally. No wheezes rales or rhonchi, no stridor. 6.GI: Soft, Nontender/Nondistended, No hepatosplenomegaly. No guarding or rebound. 7.MSK: Normocephalic/Atraumatic, Extremities w/o deformity or ttp No cyanosis or clubbing, Normal movement of all extremities, no evidence of severe rash or hives, mild small punctate erythematous lesions scattered throughout, difficult to differentiate though with the patient's recent suntan and freckles and normal skin lesions. 8.Skin: Warm, Dry. Please see musculoskeletal 9.Neuro: bee tender II-XII grossly intact. Sensation grossly intact, no focal neurologic deficits. 10.Psych: (AAO) x3. Appropriate mood and affect Procedures Intubation Time out performed: Yes sedative: Etomidate Mg Given: 25 paralytic: Rocuronium Mg Given: 120 Laryngoscope: fiberoptic video scope ET Tube Size: 6 ET Tube Uncuffed: No Tube Secured Depth (cm): 22 Tube Secured Location: teeth Tube Placement Confirmation: visualized tube passing through cords, equal breath sounds bilaterally and no breath sounds over epigastrum Patient Tolerated Procedure: well Intubation Complications: none
[2020-06-02] MEDS: FAMOTIDINE 20 MG/50 ML BAG 200 MG IVPB (21:02)
[2020-06-02] MEDS: methylPREDNISolone SUCC 125 MG VIAL IVP (21:03)
[2020-06-02] MEDS: Normal Saline 1,000 ML 1000 ML IV (21:04)
[2020-06-02] MEDS: diphenhydrAMINE 50 MG/ML VIAL IVP (21:04)
[2020-06-02] MEDS: EPINEPHrine 0.3 MG KIT IM (21:05)
[2020-06-02] MEDS: Rocuronium 50 MG/5 ML SYR 100 MG IVP ×2 (21:43→23:26)
[2020-06-02] MEDS: PROPOFOL 1,000 MG/100 ML BTL 17.4 MG (21:45)
--- NOTE | 2020-06-02 21:45 | DI.CT_ITS ---
EXAM: CT BRAIN CTA CLINICAL HISTORY: Anaphylaxis, altered mental status, hypertensive. TECHNIQUE: Imaging Protocol: Axial CT angiography was performed with multi-slice acquisition and mu lti-planar and/or 3D reconstructions. CONTRAST MATERIAL: Intravenous: Omnipaque 350 Contrast volume:structured data in ml Intravenous: Omnipaque 350 Contrast volume:85 mL COMPARISON: CT CT HEAD WO from 03/28/2019 FINDINGS: CT Head W/O: Ventricles and Extra axial spaces: Normal in size and morphology for the patient's age. Hemorrhage: None. Cerebral parenchyma: Normal. Midline shift: None. Brainstem/Cerebellum: Normal. Calvarium: Normal. Visualized Paranasal sinuses/Mastoids: Clear. Soft Tissues: Unremarkable. Other: There is an endotracheal tube noted. CTA Brain W: Internal Carotid Arteries: Petrous: Normal. Cavernous: Normal. Cerebral: Normal. Middle Cerebral Arteries: Right: No aneurysm, occlusion or significant stenosis. Left: No aneurysm, occlusion or significant stenosis. Anterior Cerebral Arteries: Right: No aneurysm, occlusion or significant stenosis. Left: No aneurysm, occlusion or significant stenosis. Posterior cerebral Arteries: Right: No aneurysm, occlusion or significant stenosis. Left: No aneurysm, occlusion or significant stenosis. Vertebral Arteries: Right: No aneurysm, occlusion or significant stenosis. Left: No aneurysm, occlusion or significant stenosis. Basilar Artery: No aneurysm, occlusion or significant stenosis. IMPRESSION: 1. Normal CTA examination of the [place]. 2. Unremarkable noncontrast CT Head. RADIATION DOSE DELIVERED: Total DLP Total DLP Total DLP Total DLP DATA REPOSITORY: All CT scans at this facility are submitted to the National Radiology Data Registry (NRDR) Dose Index Registry (DIR) with the [employer] (ACR). RADIATION OPTIMIZATION: All CT scans at this facility use at least one of these dose optimization te chniques: automated exposure control; mA and/or kV adjustment per patient size (includes targeted exa ms where dose is matched to clinical indication); or iterative reconstruction.
--- NOTE | 2020-06-02 21:45 | DI.RAD_ITS ---
EXAM: XR PORTABLE CHEST AP CLINICAL HISTORY: tube placement TECHNIQUE: 2D digital imaging was performed. COMPARISON: CR XR PORTABLE CHEST AP from 09/15/2018 FINDINGS: MEDIASTINUM: Normal. HEART: Normal. PULMONARY VASCULATURE: Normal. LUNGS: No definite focal consolidating infiltrates. PLEURAL SPACE: No pleural effusion or pneumothorax. BONE:Normal. OTHER FINDINGS:Low lung volumes. The tip of the endotracheal tube is 4 cm above the brook. IMPRESSION: 1. Well-positioned endotracheal tube with the tip 4 cm above the brook. 2. Low lung volumes. No definite focal consolidating infiltrates. DATA REPOSITORY: RADIATION DOSE DELIVERED:
[2020-06-02 22:06] LABS: Abs Immature Grans 0.04 k/cumm (0.0-0.09); Absolute Basophil Count 0.06 k/cumm (0.0-0.2); Absolute Eosinophil Count 0.48 k/cumm (0.0-0.7); Absolute Lymphocyte Count 7.31 k/cumm (1.2-3.4); Basophils % 0.4; Eosinophils % 3.3; HCT 39.7 % (36.0-46.0); HGB 13.4 g/dL (12.0-15.5); Immature Grans % 0.3 %; Lymphocytes % 50.2; Mean Corp. HGB Concentration 33.8 g/dL (32.0-36.0); Mean Corpuscular Hemoglobin 30.4 pg (27.0-33.0); Mean Platelet Volume 11.4 fL (8.0-11.0); Neutrophils % 35.8; Platelet Count 410 x1000/uL (130-400); RBC 4.41 m/cumm (4.00-5.20); RBC Distribution Width 13.7 % (11.7-14.6); White Blood Cell Count 14.56 k/cumm (4.4-10.8)
--- NOTE | 2020-06-02 22:19 | DI.VRAD_ITS ---
PROCEDURE INFORMATION: Exam: XR Chest, 1 View Exam date and time: 06/02/2020 9:57 PM Age: 34 years old Clinical indication: Device placement; Other: Post intubation; Patient HX: Tube placement TECHNIQUE: Imaging protocol: XR of the chest Views: 1 view. COMPARISON: CR XR CHEST 2V PA LATERAL 09/21/2018 5:48 AM FINDINGS: Tubes, catheters and devices: Endotracheal tube is well positioned. Tip is approximately 4 cm above the brook. Lungs: Poor inspiratory lung expansion. No distinct lung infiltrates. No edema evident. Pleural space: No pleural effusions. Heart/Mediastinum: Normal heart size. Bones/joints: Unremarkable. IMPRESSION: 1. Endotracheal tube is in position with tip approximately 4 cm above brook. 2. Poor lung expansion on this x-ray. No definable areas of lung consolidation or edema. 3. No pleural effusions. Dictated and Authenticated by: Juan Benitez MD. Ordering:MELISSA Ivey MD
[2020-06-02 22:20] LABS: ALT 136 U/L (14-59); AST 77 U/L (15-37); Albumin 4.2 g/dL (3.4-5.0); Alkaline Phosphatase 89 U/L (46-116); Anion Gap 12.1 mmol/L (3-11); BUN 10 mg/dL (7-18); Bilirubin, Total 0.6 mg/dL (0.2-1.0); CO2 26.9 mmol/L (21.0-32.0); CREATININE 0.85 mg/dL (0.55-1.02); Calcium 9.2 mg/dL (8.5-10.1); Chloride 101 mmol/L (98-107); Glucose 109 mg/dL (74-106); Potassium 3.3 mmol/L (3.5-5.1); Sodium 140 mmol/L (136-145); Total Protein 8.6 g/dL (6.4-8.2)
[2020-06-02 22:30] LABS: Absolute Monocyte Count 1.46 k/cumm (0.11-0.7); Absolute Neutrophil Count 5.21 k/cumm (1.2-6.7)
[2020-06-02 22:31] LABS: Diff Comment Agrees w/ Instrument; RBC Morphology Normal
[2020-06-02] MEDS: PROPOFOL 1,000 MG/100 ML BTL 24.4 MG (22:45)
[2020-06-02] MEDS: Omnipaque 350 MG/ML 100 ML BTL IJ (22:53)
[2020-06-02] MEDS: Normal Saline - Diluent 50 ML VIAL IV (22:54)
--- NOTE | 2020-06-02 22:54 | DI.VRAD_ITS ---
PROCEDURE INFORMATION: Exam: CT Angiography Head With Contrast Exam date and time: 06/02/2020 9:52 PM Age: 34 years old Clinical indication: Other: AMS, hypertension, anaphylaxis TECHNIQUE: Imaging protocol: Computed tomography angiography of the head with intravenous contrast. 3D rendering: MIP and/or 3D reconstructed images were created by the technologist. Radiation optimization: All CT scans at this facility use at least one of these dose optimization techniques: automated exposure control; mA and/or kV adjustment per patient size (includes targeted exams where dose is matched to clinical indication); or iterative reconstruction. Contrast material: OMNIPAQUE 350; Contrast volume: 85 ml; Contrast route: INTRAVENOUS (IV); COMPARISON: HEAD^MRA COW 03/29/2019 4:05 PM FINDINGS: Tubes, catheters and devices: Endotracheal tube is noted. Anterior cerebral arteries: No occlusion or significant stenosis. No aneurysm. Right internal carotid artery: Intracranial segment is patent with no significant stenosis or occlusion. No aneurysm. Right middle cerebral artery: No occlusion or significant stenosis. No aneurysm. Right posterior cerebral artery: No occlusion or significant stenosis. No aneurysm. Right vertebral artery: No occlusion or significant stenosis. No aneurysm. Left internal carotid artery: Intracranial segment is patent with no significant stenosis or occlusion. No aneurysm. Left middle cerebral artery: No occlusion or significant stenosis. No aneurysm. Left posterior cerebral artery: No occlusion or significant stenosis. No aneurysm. Left vertebral artery: No occlusion or significant stenosis. No aneurysm. Basilar artery: No occlusion or significant stenosis. No aneurysm. HEAD: Brain: No cerebral edema. No large territory acute CVA. No intracranial hemorrhage. No ventriculomegaly. No mass. IMPRESSION: 1. No cerebral artery occlusion. 2. No vascular malformation or aneurysm. 3. No cerebral edema. 4. No intracranial hemorrhage. 5. No hydrocephaly. 6. Endotracheal tube noted. 7. Sinuses and mastoid air cells are clear. Dictated and Authenticated by: Juan Benitez MD. Ordering:JOJO Feliz MD
[2020-06-02] MEDS: Normal Saline Flush 10 ML SYR IVP (22:55)
[2020-06-02] MEDS: PROPOFOL 1,000 MG/100 ML BTL 34.08 MG (23:10)
[2020-06-02] MEDS: fentaNYL 1,000 MCG in Normal Saline 80 ML 11.61 MCG IV (23:37)
[2020-06-02 23:38] LABS: BE -2.1 mmol/L (-3-3); HCO3 26 mmol/L (22-28); pH 7.21 (7.35-7.45); pO2 89 mmHg (83-108); sO2 95 % (94-98); tCO2 24 mmol/L (22-29)
[2020-06-02 23:39] LABS: FIO2 100 %; Site Right Radial; pCO2 65 mmHg (34-47)
[2020-06-02 23:43] LABS: Bilirubin Negative (Negative); Blood Small (Negative); Clarity Clear (Clear); Glucose 250 mg/dL (Negative); Ketones 15 mg/dL (Negative); Leukocyte Esterase Negative (Negative); Nitrite Negative (Negative); Urobilinogen 0.2 EU/dL (Up TO 0.2)
[2020-06-02 23:45] LABS: Bacteria Rare HPF (Negative); C & S Indicated? No; Casts Negative LPF (Negative); Crystals Negative HPF (Negative); Epithelial Cells Few HPF (Negative); Mucus Negative (Negative); WBC Negative HPF (0-5)
[2020-06-02] MEDS: Etomidate 20 MG/10 ML VIAL 25 MG IVP (23:47)
--- NOTE | 2020-06-02 23:54 | NUR.NOTE ---
Nursing Note: 214 -patient prepared for emergent intubation. At bedside, Dr. Jimenez, Dr. Alaniz, Alessandra Payton and this RN. Pt given etomodate and rocuronium IV. Pt noted to be sedated. Dr. Jimenez intubated with 6.0 tube 20 at teeth. pt tolerated procedure well. Tube secured, pt had propofol drip initiated for sedation and prepared for CT.
[2020-06-03] VITALS (12 sets, daily range): BP systolic 162–190; BP diastolic 77–98; PULSE 90–103; RESP 19–27; O2SAT 91–98
[2020-06-03 00:11] LABS: BE -1.3 mmol/L (-3-3); HCO3 25 mmol/L (22-28); pCO2 54 mmHg (34-47); pH 7.28 (7.35-7.45); pO2 86 mmHg (83-108); sO2 96 % (94-98); tCO2 23 mmol/L (22-29)
[2020-06-03 00:15] LABS: FIO2 70 %; Site Left Radial
[2020-06-03] MEDS: PROPOFOL 1,000 MG/100 ML BTL 34.8 MG (00:30)
== END 2020-06-03 00:45 | disposition short-term general hospital (02) ==
LOC: ER 23:39
PROVIDERS: Emergency Provider Student in an Organized Health Care Education/Training Program; PCP Nurse Practitioner Family
DX: T63.441A Toxic effect of venom of bees, accidental (unintentional), initial encounter (principal); T78.2XXA Anaphylactic shock, unspecified, initial encounter; T78.3XXA Angioneurotic edema, initial encounter; R06.03 Acute respiratory distress; R25.3 Fasciculation; Z91.030 Bee allergy status; Z78.1 Physical restraint status
CPT/HCPCS: 31500; 36415; 51702; 70496; 80053; 82805; 96365; 96372; 96375; 99291; 36600; 71045; 81003; 81015; 85025; J0171; J1200; J2930; J3010; J3490

== ENCOUNTER 2020-08-20 15:26 | Outpatient (REF) | payer MEDICAID, SELFPAY ==
[2020-08-20 19:36] LABS: ALT 98 U/L (14-59); AST 59 U/L (15-37); Alkaline Phosphatase 95 U/L (46-116); Anion Gap 9.4 mmol/L (3-11); BUN 11 mg/dL (7-18); Bilirubin, Total 0.4 mg/dL (0.2-1.0); CO2 27.6 mmol/L (21.0-32.0); CREATININE 0.71 mg/dL (0.55-1.02); Calcium 9.3 mg/dL (8.5-10.1); Chloride 103 mmol/L (98-107); Glucose 106 mg/dL (74-106); Potassium 3.8 mmol/L (3.5-5.1); Sodium 140 mmol/L (136-145); TSH 3.63 uIU/mL (0.36-3.74); Total Protein 7.7 g/dL (6.4-8.2)
[2020-08-22 04:57] LABS: Vitamin D 25 Total 22.1 ng/ml (30-100)
== END 2020-08-20 15:46 ==
LOC: NCHCN 15:26
PROVIDERS: PCP Nurse Practitioner Family; Visit Provider Nurse Practitioner Family
DX: E03.9 Hypothyroidism, unspecified (principal); R73.9 Hyperglycemia, unspecified; R94.5 Abnormal results of liver function studies
CPT/HCPCS: 80053; 82306; 84443

== ENCOUNTER 2020-09-12 01:21 | Outpatient (CLI) | payer MEDICAID, SELFPAY ==
--- NOTE | 2020-09-12 06:55 | DI.MRI_ITS ---
EXAM: MR CERVICAL SPINE WO CLINICAL HISTORY: s/p C5-6 ACDF with return of myelopathy sx,g95.9. TECHNIQUE: Multiplanar multisequence MRI was performed. FINDINGS: MR examination of the cervical region was performed according to the usual protocol. There is anteri or vertebral fusion at C 5 6 level. Images obtained through the posterior fossa are unremarkable. Spinal cord is of normal diameter and shows normal signal throughout. No significant findings at C2-3. At C3-4, there is mild decrease in AP diameter of the spinal canal without significant spinal stenosi s. There is mild right neural foraminal stenosis. No disc herniation. At C4-5 there is a mild broad-based left-sided paracentral and lateral disc herniation with associate d narrowing of the left neural foramen. No gross impingement on the spinal canal. At C5-6 there is a mild central disc herniation with borderline central canal spinal stenosis, questi on minimal impingement on the anterior surface of the cord with slight cord deformity but no intra co rd signal abnormality. There is mild bilateral neural foraminal narrowing at C5-6. At C6-7, there is no evidence of disc herniation, central canal spinal stenosis, or neural foraminal stenosis. IMPRESSION: Multilevel findings as described above. Please see above discussion for findings at individual level s. Disc herniations noted at C4-5 and C5-6. Multilevel neural foraminal narrowing. Borderline central canal spinal stenosis at C5-6 DATA REPOSITORY:
== END 2020-09-12 01:41 ==
PROVIDERS: PCP Nurse Practitioner Family; Visit Provider Psychiatry & Neurology Neurology
DX: M50.01 Cervical disc disorder with myelopathy, high cervical region (principal); M48.02 Spinal stenosis, cervical region
CPT/HCPCS: 72141

== ENCOUNTER 2020-09-16 02:07 | Outpatient (CLI) | payer MEDICAID, SELFPAY ==
--- NOTE | 2020-09-16 07:45 | DI.MRI_ITS ---
EXAM: MR THORACIC SPINE WO CLINICAL HISTORY: increased myelopathic sx; c-spine ok.G95.9. TECHNIQUE: Multiplanar multisequence MRI of the Thoracic spine was performed. FINDINGS: Bones: The vertebral body heights are well maintained. Alignment is satisfactory. There is a hemangio ma or fatty rest in the T2 vertebral body. Otherwise marrow signal is within normal limits. Cord: The thoracic cord is normal size and signal intensity. No intrinsic cord lesion is present. Discs: No disc herniation or bulge is present. No central spinal canal or neural foraminal stenosis. Soft tissues: Normal. IMPRESSION: Normal MRI examination of the thoracic spine. DATA REPOSITORY:
== END 2020-09-16 02:27 ==
PROVIDERS: PCP Nurse Practitioner Family; Visit Provider Psychiatry & Neurology Neurology
DX: G95.89 Other specified diseases of spinal cord (principal)
CPT/HCPCS: 72146

== ENCOUNTER 2020-10-23 01:32 | Outpatient (CLI) | payer MEDICAID, SELFPAY ==
--- NOTE | 2020-10-23 | DI.US_ITS ---
EXAM: US ABDOMEN CLINICAL HISTORY: H/O FATTY LIVER ON CT 09/15/18, ELEVATED LIVER ENZYMES TECHNIQUE: Ultrasound abdomen performed using standard protocol. COMPARISON: No exams were available for comparison FINDINGS: There is no ascites. No focal hepatic lesions seen. Liver is mildly hyperechoic indicating an eleme nt of steatosis. Gallbladder appears unremarkable. Common hepatic duct is not dilated measuring 4-5 millimeters. Pancreas is unremarkable. No significant findings in the kidneys. No hydronephrosis. Spleen size is upper normal. Abdominal aorta not enlarged.. IVC is patent. IMPRESSION: No significant ultrasound findings in the upper abdomen. No ascites. DATA REPOSITORY:
== END 2020-10-23 01:52 ==
PROVIDERS: PCP Nurse Practitioner Family; Visit Provider Nurse Practitioner Family
DX: K76.0 Fatty (change of) liver, not elsewhere classified (principal); R94.5 Abnormal results of liver function studies
CPT/HCPCS: 36415; 80061; 82784; 83516; 86706; 76700

== ENCOUNTER 2020-10-23 07:59 | Outpatient (CLI) | payer MEDICAID, SELFPAY ==
[2020-10-23 11:14] LABS: Calculated LDL 135 mg/dL (<100); Cholesterol 194 mg/dL (<200); HDL Cholesterol 30 mg/dL (40-60); Triglyceride 149 mg/dL (<150)
[2020-10-24 09:52] LABS: HBs Antibody, Quant 3.4 mIU/mL (See Note); Hepatitis B Surface Ab Negative (See Note)
[2020-10-28 12:44] LABS: IgA 234 mg/dL (85-499); Interpretation (See Note); Tissue Transglutaminase IgA <1.2 U/mL (<4.0)
== END 2020-10-23 08:19 ==
PROVIDERS: PCP Nurse Practitioner Family; Visit Provider Nurse Practitioner Family
DX: K76.0 Fatty (change of) liver, not elsewhere classified (principal); R32 Unspecified urinary incontinence
CPT/HCPCS: 36415; 80061; 82784; 83516; 86706

== ENCOUNTER 2021-01-21 03:31 | Outpatient (CLI) | payer MEDICAID, SELFPAY ==
[2021-01-21 16:44] LABS: Iron 47 ug/dL (50-170); Total Iron Binding Capacity 427 ug/dL (250-450); Transferrin Sat 11 % (15-50)
[2021-01-21 16:49] LABS: ALT 75 U/L (14-59); AST 31 U/L (15-37); Albumin 3.9 g/dL (3.4-5.0); Alkaline Phosphatase 101 U/L (46-116); Anion Gap 9.4 mmol/L (3-11); BUN 16 mg/dL (7-18); Bilirubin, Total 0.2 mg/dL (0.2-1.0); CO2 25.6 mmol/L (21.0-32.0); CREATININE 0.7 mg/dL (0.55-1.02); Calcium 8.9 mg/dL (8.5-10.1); Chloride 103 mmol/L (98-107); Glucose 106 mg/dL (74-106); Potassium 4.8 mmol/L (3.5-5.1); Sodium 138 mmol/L (136-145); TSH (W/Ref FT4) 5.83 uIU/mL (0.36-3.74)
[2021-01-21 16:50] LABS: Bilirubin, Direct < 0.1 mg/dL (0.0-0.2)
[2021-01-21 16:54] LABS: Ferritin 18 ng/mL (8-252)
[2021-01-21 17:06] LABS: FREE T4 0.93 ng/dL (0.76-1.46)
== END 2021-01-21 03:32 | disposition home or self-care (01) ==
LOC: LBO 03:31
PROVIDERS: Nurse Practitioner; PCP Nurse Practitioner Family; Visit Provider Nurse Practitioner Family
DX: G47.61 Periodic limb movement disorder (principal); G47.33 Obstructive sleep apnea (adult) (pediatric); M25.512 Pain in left shoulder; R53.81 Other malaise
CPT/HCPCS: 36415; 80048; 80076; 82728; 83540; 83550; 84439; 84443

== ENCOUNTER 2021-04-22 03:22 | Outpatient (CLI) | payer MEDICAID, SELFPAY ==
[2021-04-22 10:59] LABS: Source Nasal/Nares
[2021-04-22 12:54] LABS: COVID-19 PCR Negative (Negative)
== END 2021-04-22 03:23 | disposition home or self-care (01) ==
LOC: LBO 03:22
PROVIDERS: PCP Nurse Practitioner Family; Visit Provider Nurse Practitioner
DX: Z20.822 Contact with and (suspected) exposure to COVID-19 (principal); Z01.818 Encounter for other preprocedural examination
CPT/HCPCS: 87635

== ENCOUNTER 2022-04-02 13:53 | Outpatient (CLI) | payer MEDICAID, SELFPAY ==
[2022-04-02 14:30] LABS: Hemoglobin A1C 5.7 % (<5.7)
[2022-04-02 15:03] LABS: Iron 92 ug/dL (50-170); Total Iron Binding Capacity 392 ug/dL (250-450); Transferrin Sat 23 % (15-50)
[2022-04-02 15:14] LABS: ALT 70 U/L (14-59); AST 38 U/L (15-37); Albumin 3.8 g/dL (3.4-5.0); Alkaline Phosphatase 89 U/L (46-116); Anion Gap 7.3 mmol/L (3-11); BUN 11 mg/dL (7-18); Bilirubin, Total 0.5 mg/dL (0.2-1.0); CO2 25.7 mmol/L (21.0-32.0); CREATININE 0.5 mg/dL (0.55-1.02); Calcium 8.4 mg/dL (8.5-10.1); Chloride 101 mmol/L (98-107); FREE T4 0.97 ng/dL (0.76-1.46); Glucose 95 mg/dL (74-106); Potassium 3.9 mmol/L (3.5-5.1); Sodium 134 mmol/L (136-145); TSH 3.74 uIU/mL (0.36-3.74); Total Protein 7.5 g/dL (6.4-8.2)
[2022-04-02 15:26] LABS: Vitamin D 25 Total 15.9 ng/mL (30-100)
== END 2022-04-02 13:54 | disposition home or self-care (01) ==
LOC: LBO 13:55
PROVIDERS: PCP Nurse Practitioner Family; Visit Provider Nurse Practitioner Family
DX: R73.9 Hyperglycemia, unspecified (principal); E03.9 Hypothyroidism, unspecified; R79.89 Other specified abnormal findings of blood chemistry; E55.9 Vitamin D deficiency, unspecified
CPT/HCPCS: 36415; 80053; 82306; 83036; 83540; 83550; 84439; 84443

== ENCOUNTER → 2022-07-09 12:50 | Outpatient (CLI) | payer MEDICAID, SELFPAY ==
--- NOTE | 2022-07-09 11:53 | DI.RAD_ITS ---
Exam(s) XR CERVICAL SPINE COMP 4-5V EXAM: XR CERVICAL SPINE COMP 4-5V CLINICAL HISTORY: NECK PAIN, M54.2, DEGENERATIVE JOINT DISEASE, M43.02, SURGERY AT C6, TECHNIQUE: COMPARISON: No exams were available for comparison FINDINGS: Six views were obtained. There is some straightening of the cervical lordosis with a minimal anterol isthesis C3 on C4 estimated at 2 millimeters. There is an anterior fusion with intact plate and scre w fixation at the C5-6 level. There are hypertrophic degenerative changes of the facet joints of the lower cervical spine. Neural foramina appear fairly well maintained as visualized on oblique views. No fracture or dislocation. Intervertebral disc spaces are well maintained except for the fused le miryam. IMPRESSION: DJD with C5-6 fusion. RADIATION DOSE DELIVERED: Total DLP
== END ==
PROVIDERS: PCP Nurse Practitioner Family; Visit Provider Physician Assistant Medical
DX: M54.2 Cervicalgia (principal); M43.02 Spondylolysis, cervical region; Z98.1 Arthrodesis status; M50.31 Other cervical disc degeneration, high cervical region
CPT/HCPCS: 72050

== ENCOUNTER 2022-07-27 07:23 | Emergency (ER) | payer MEDICAID, SELFPAY ==
[2022-07-27 07:27] VITALS: BP 159/101; PULSE 110; RESP 18; TEMP 36.7; O2SAT 98
--- NOTE | 2022-07-27 07:45 | DI.RAD_ITS ---
Exam(s) XR LUMBAR SPINE COMPLETE EXAM: XR LUMBAR SPINE COMPLETE CLINICAL HISTORY: trauma, low back pain. TECHNIQUE: 2D digital imaging was performed. COMPARISON: CR XR lumbar spine complete from 03/18/2019 FINDINGS: Five views There is transitional lumbosacral vertebra again noted. However, no evidence of acute fracture nor listhesis. No pars defects evident. No significant disc space narrowing. Some facet arthropathy is noted on the right side in the lower lumbar spine. Sacro iliac joints unremarkable. IMPRESSION: As above but without significant radiographic change compared to 03/18/2019. No acute fractures evid ent. DATA REPOSITORY: RADIATION DOSE DELIVERED:
--- NOTE | 2022-07-27 07:45 | RT.EKG_ITS ---
APPROVED REPORT Exam: Resting ECG Reason for Exam: vomiting Patient Location: E HR:87 bpm ECG Measurements Heart Rate 87 AXIS MN 153 P 46 QRSd 78 QRS 5 QT 333 T 57 QTc 401 Conclusion Sinus rhythm...normal P axis, V-rate 60- 99 Low voltage, precordial leads...precordial leads <1.0mV sinus rhythm at 87, normal axis, no acute ischemic changes, nondiagnostic EKG
--- NOTE | 2022-07-27 07:45 | DI.CT_ITS ---
Exam(s) CT HEAD CERVICAL SPINE WO EXAM: CT HEAD CERVICAL SPINE WO CLINICAL HISTORY: trauma, headache. TECHNIQUE: Imaging Protocol: Axial computed tomography images with coronal and sagittal reformatted images were created and reviewed COMPARISON: CT CT BRAIN CTA from 06/02/2020 FINDINGS: BRAIN: There are no skull fractures nor fluid in the visualized paranasal sinuses. There is no evidence of intracranial hemorrhage, mass effect, or shift of midline structures. There are no extra-axial fluid collections. The ventricles are not enlarged or shifted and there is no blo od within the ventricular system nor within the basal cisterns. CERVICAL SPINE: Study blurred by motion artifact. Anterior fusion plate C5-6 noted. Straightening o f the cervical spine evident with fusion across this level.. There is no evidence of obvious fracture nor listhesis. No significant prevertebral soft tissue swel ling. Mild facet joint degenerative changes at multiple levels. There is no significant facet joint malalignment. No significant osseous lesions evident. Enlarged thyroid gland noted. IMPRESSION: No acute intracranial findings on this noninfused CT scan of the brain. Cervical spine study is somewhat limited due to motion artifact. There are no obvious fractures, mal alignment nor acute compromise of the cervical spinal canal. Anterior fusion plate across C5-6 is no mirna. Enlarged thyroid gland. This can be further investigated with nonemergent ultrasound. Called to ER physician RADIATION DOSE DELIVERED: 1,387.09mGy.cm Total DLP DATA REPOSITORY: All CT scans at this facility are submitted to the National Radiology Data Registry (NRDR) Dose Index Registry (DIR) with the [employer] ([employer]). RADIATION OPTIMIZATION: All CT scans at this facility use at least one of these dose optimization te chniques: automated exposure control; mA and/or kV adjustment per patient size (includes targeted exa ms where dose is matched to clinical indication); or iterative reconstruction.
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
--- NOTE | 2022-07-27 08:27 | NUR.NOTE ---
Nursing Note: patient states taking a medication for her PTSD but does not know the name of it.
[2022-07-27] MEDS: Normal Saline 1,000 ML 1000 ML IV (08:33)
[2022-07-27] MEDS: Ondansetron 4 MG/2 ML VIAL IVP (08:34)
[2022-07-27 08:56] LABS: Abs Immature Grans 0.02 10^3/uL (0.0-0.06); Absolute Basophil Count 0.04 10^3/uL (0.0-0.2); Absolute Eosinophil Count 0.16 10^3/uL (0.0-0.7); Absolute Lymphocyte Count 2.34 10^3/uL (1.2-3.4); Absolute Monocyte Count 0.66 10^3/uL (0.1-0.8); Absolute Neutrophil Count 3.91 10^3/uL (1.2-6.7); Basophils % 0.6; Eosinophils % 2.2; HCT 37.6 % (36.0-46.0); HGB 13.3 g/dL (11.2-15.7); Immature Grans % 0.3; Lymphocytes % 32.8; MCH 29.9 pg (27.0-33.0); MCHC 35.4 % (32.0-36.0); MCV 85 fL (80-95); MPV 11.2 fL (8.0-11.0); Monocytes % 9.3; Neutrophils % 54.8; Platelet Count 259 10^3/uL (130-400); RBC 4.45 10^6/uL (3.93-5.22); RDW 13.4 % (11.7-14.6); RDW-SD 41.6 fL; WBC 7.13 10^3/uL (4.4-10.8)
[2022-07-27 08:58] LABS: Bilirubin Negative (Negative); Blood Negative (Negative); Clarity Clear (Clear); Glucose Negative (Negative); Ketones Negative (Negative); Leukocyte Esterase Negative (Negative); Nitrite Negative (Negative); Specific Gravity 1.025 (1.005-1.025); Urobilinogen 0.2 EU/dL (Up TO 0.2); pH 6.5 (5-8)
[2022-07-27 09:10] LABS: ALT 50 U/L (14-59); AST 41 U/L (15-37); Albumin 3.9 g/dL (3.4-5.0); Alkaline Phosphatase 75 U/L (46-116); Anion Gap 9.7 mmol/L (3-11); BUN 10 mg/dL (7-18); Bilirubin, Total 0.6 mg/dL (0.2-1.0); CO2 26.3 mmol/L (21.0-32.0); CREATININE 0.7 mg/dL (0.55-1.02); Calcium 8.8 mg/dL (8.5-10.1); Chloride 100 mmol/L (98-107); Estimated GFR 113.46 (mL/min/1.73m2); Glucose 103 mg/dL (74-106); Lipase 64 U/L (73-393); Potassium 4.5 mmol/L (3.5-5.1); Sodium 136 mmol/L (136-145); Total Protein 8.3 g/dL (6.4-8.2); Troponin I < 50 ng/L (<or=60)
[2022-07-27 10:15] LABS: TSH (W/Ref FT4) 5.87 uIU/mL (0.36-3.74)
[2022-07-27 10:35] LABS: FREE T4 1.08 ng/dL (0.76-1.46)
[2022-07-27 10:40] VITALS: BP 150/74; PULSE 72
[2022-07-27 10:51] VITALS: BP 126/91; PULSE 81; RESP 18; O2SAT 100
== END 2022-07-27 10:43 | disposition home or self-care (01) ==
PROVIDERS: Emergency Provider Student in an Organized Health Care Education/Training Program; PCP Nurse Practitioner Family
DX: S09.90XA Unspecified injury of head, initial encounter (principal); E04.9 Nontoxic goiter, unspecified; R11.10 Vomiting, unspecified; M54.9 Dorsalgia, unspecified; Z87.891 Personal history of nicotine dependence; Y04.2XXA Assault by strike against or bumped into by another person, initial encounter
CPT/HCPCS: 36415; 80053; 81025; 83690; 93005; 96361; 96374; 99284; 70450; 72110; 72125; 81003; 84439; 84443; 84484; 85025; 93010; 99285; J2405

== ENCOUNTER → 2022-09-01 02:55 | Outpatient (CLI) | payer MEDICAID, SELFPAY ==
--- NOTE | 2022-09-01 12:00 | DI.MRI_ITS ---
Exam(s) MR CERVICAL SPINE WO EXAM: MR CERVICAL SPINE WO CLINICAL HISTORY: NECK PAIN, M54.2 TECHNIQUE: Multiplanar multisequence MRI of the cervical spine was performed without intravenous con trast. COMPARISON: MR MR CERVICAL SPINE WO from 09/12/2020 FINDINGS: BONES: Vertebral body heights are maintained. Intervertebral disc spaces are normal. Alignment is nor mal. Bone marrow signal intensity is within normal limits. Anterior cervical disc fusion is again see n at C5-C6. CERVICAL CORD: Craniovertebral junction is unremarkable. The cervical cord is normal size and signal intensity. SOFT TISSUES: Unremarkable. C2-3: No disc herniation or bulge is identified. No significant central spinal canal or neural forami nal stenosis. C3-4: No disc herniation or bulge is identified. No significant central spinal canal or neural forami nal stenosis C4-5: There is mild prominence of the osteophyte disc complex. There are mild prominent changes of t he left uncovertebral joint causing mild narrowing of the left neural foramen. No significant centra l spinal canal or right neural foraminal stenosis. C5-6: No disc herniation or bulge is identified. No significant central spinal canal or neural forami nal stenosis C6-7: No disc herniation or bulge is identified. No significant central spinal canal or neural forami nal stenosis C7-T1: No disc herniation or bulge is identified. No significant central spinal canal or neural kannan inal stenosis IMPRESSION: 1. Stable postsurgical changes at C5-C6. 2. Degenerative changes seen in the cervical spine at C4-C5 resulting in mild left neural foraminal s tenosis. DATA REPOSITORY:
== END ==
PROVIDERS: PCP Nurse Practitioner Family; Visit Provider Nurse Practitioner Family
DX: M47.812 Spondylosis without myelopathy or radiculopathy, cervical region (principal); Z98.890 Other specified postprocedural states
CPT/HCPCS: 72141

== ENCOUNTER 2022-09-01 12:12 | Outpatient (CLI) | payer MEDICAID, SELFPAY ==
[2022-09-01 12:15] LABS: FREE T4 0.88 ng/dL (0.76-1.46); TSH 4.73 uIU/mL (0.36-3.74)
== END 2022-09-01 12:13 | disposition home or self-care (01) ==
LOC: LBO 12:14
PROVIDERS: PCP Nurse Practitioner Family; Visit Provider Nurse Practitioner Family
DX: E03.9 Hypothyroidism, unspecified (principal); E04.8 Other specified nontoxic goiter
CPT/HCPCS: 36415; 84439; 84443

== ENCOUNTER → 2022-11-05 01:13 | Outpatient (CLI) | payer MEDICAID, SELFPAY ==
--- NOTE | 2022-11-05 | DI.US_ITS ---
Exam(s) US THYROID EXAM: US THYROID CLINICAL HISTORY: ENLARGED THYROID, E04.9. TECHNIQUE: Ultrasound thyroid performed using standard protocol. COMPARISON: CT CT HEAD CERVICAL SPINE WO from 07/27/2022 FINDINGS: ISTHMUS: 5 mm RIGHT LOBE: Size: 6.3 x 2.6 x 2.8 cm Echogenicity: Diffusely heterogeneous Vascularity: Normal. Nodules: None. LEFT LOBE: Size: 4.6 x 2.0 x 1.8 cm Echogenicity: Diffusely heterogeneous Vascularity: Normal. Nodules: None. OTHER FINDINGS: None. IMPRESSION: Enlarged diffusely heterogeneous thyroid gland. No suspicious nodules. DATA REPOSITORY:
== END ==
PROVIDERS: PCP Nurse Practitioner Family; Visit Provider Nurse Practitioner Family
DX: E04.9 Nontoxic goiter, unspecified (principal)
CPT/HCPCS: 76536

== ENCOUNTER 2022-12-30 01:51 | Outpatient (CLI) | payer MEDICAID, SELFPAY ==
[2022-12-30 14:26] LABS: FREE T4 0.86 ng/dL (0.76-1.46); TSH 5.62 uIU/mL (0.36-3.74)
[2022-12-30 22:22] LABS: T3,Free 4.5 pg/mL (2.8-5.3)
[2022-12-30 23:06] LABS: Thyroglobulin Antibody 24 U/mL (<=60); Thyroperoxidase Antibody 430 U/mL (<=60)
== END 2022-12-30 01:52 | disposition home or self-care (01) ==
LOC: LBO 01:51
PROVIDERS: PCP Nurse Practitioner Family; Visit Provider Nurse Practitioner Family
DX: E04.9 Nontoxic goiter, unspecified (principal)
CPT/HCPCS: 36415; 86376; 84439; 84443; 84481

== ENCOUNTER 2023-03-08 00:53 | Outpatient (CLI) | payer MEDICAID, SELFPAY ==
--- NOTE | 2023-03-08 | DI.RAD_ITS ---
Exam(s) RF BARIUM SWALLOW EXAM: RF BARIUM SWALLOW CLINICAL HISTORY: DYSPHAGIA,R13.10 TECHNIQUE: 2D and realtime digital imaging was performed. CONTRAST MATERIAL: Oral barium contrast was administered. COMPARISON: CR,XR XR PORTABLE CHEST AP from 06/02/2020 FINDINGS: CHEST X-RAY: The heart and pulmonary vasculature are within normal limits. The lungs are clear. No pl eural effusion or pneumothorax is present. The bones are within normal limits for the patient's age. The patient is anterior cervical disc fusion at C5-C6. Degenerative changes are seen at C4-C5 and C6 -C7. ESOPHAGRAM: The esophagus is patent with no evidence for erosions, fold thickening, strictures, or ma sses. With regards to the motility, there is a normal primary stripping wave. No tertiary contraction s were noted. There is a small sliding hiatal hernia. A barium tablet passed into the stomach withou t difficulty. IMPRESSION: Small hiatal hernia. Otherwise unremarkable barium swallow examination. RADIATION DOSE DELIVERED: david Baron=22.3 mGy
[2023-03-08] MEDS: Barium Sulfate 60% W/V 355 ML BTL PO (10:32)
[2023-03-08] MEDS: Simethicone/Sod Bicarb/Cit Ac, 4 gram PACKET 1 PACKET PO (10:33)
[2023-03-08] MEDS: Barium Sulfate 98% W/W 140 ML BTL PO (10:33)
[2023-03-08] MEDS: Barium Sulfate 700 MG TAB PO (10:34)
== END 2023-03-08 01:13 ==
LOC: DI 00:53
PROVIDERS: PCP Nurse Practitioner Family; Visit Provider Nurse Practitioner Family
DX: R13.10 Dysphagia, unspecified (principal)
CPT/HCPCS: 74221; J3490

== ENCOUNTER 2025-08-10 03:50 | Outpatient (CLI) | payer MEDICAID, SELFPAY ==
--- NOTE | 2025-08-10 09:16 | DI.RAD_ITS ---
Exam(s) XR KNEE LT 3V AP,LAT,FAUSTINA EXAM: XR KNEE LT 3V AP,LAT,FAUSTINA CLINICAL HISTORY: INSTABILITY LT KNEE JOINT,M25.362,LT KNEE PAIN,MILD EFFUSION,H/O BONE SPURS. TECHNIQUE: 2D digital imaging was performed. Three views. COMPARISON: No exams were available for comparison FINDINGS: BONES: No acute fracture is present. No bony destructive lesion is seen. JOINTS: The knee is normally aligned. No joint effusion is seen. There are no significant degenerative changes. SOFT TISSUE: Normal. IMPRESSION: Normal radiographs of the left knee. DATA REPOSITORY: RADIATION DOSE DELIVERED:
== END 2025-08-10 04:10 ==
LOC: DI 03:51
PROVIDERS: PCP Nurse Practitioner Family; Visit Provider Family Medicine
DX: M25.362 Other instability, left knee (principal)
CPT/HCPCS: 73562

== ENCOUNTER 2025-10-31 07:12 | Emergency (ER) | payer MEDICAID, SELFPAY ==
[2025-10-31 07:22] VITALS: BP 119/86; PULSE 99; RESP 12; TEMP 36.8; O2SAT 99
--- NOTE | 2025-10-31 08:11 | DI.RAD_ITS ---
Exam(s) XR CHEST 2V PA LATERAL EXAM: XR CHEST 2V PA LATERAL CLINICAL HISTORY: cough TECHNIQUE: 2D digital imaging was performed. Two views. COMPARISON: CR,RF RF BARIUM SWALLOW from 03/08/2023 FINDINGS: HEART: Normal size. Aorta: Not dilated. PULMONARY VASCULATURE: Normal. MEDIASTINUM: Unremarkable. LUNGS: Clear. PLEURAL SPACE: No pleural effusion or pneumothorax. BONE:Unremarkable for age. SOFT TISSUES: Unremarkable. IMPRESSION: No acute abnormality. DATA REPOSITORY: RADIATION DOSE DELIVERED:
--- NOTE | 2025-10-31 08:27 | ED.GENADUL_ITS ---
Discharge Plan Disposition Patient Disposition: Home Condition: Stable Discharge Details Clinical Impression: URI (upper respiratory infection) Primary Care Provider: Katherine Pearce ED Provider: Lan Alaniz Home Meds and New Rx's Prescriptions: Continued ferrous sulfate [FeroSul] 325 mg (65 mg iron) tablet 325 mg PO DAILY Emgality Pen 120 mg/mL pen injector 120 mg subcut QMONTH Qty: 1 11RF Nurtec ODT 75 mg tablet,disintegrating 75 mg PO ONCE PRN (Reason: migraine headache) Qty: 10 3RF Rx Instructions: As a single dose. No more than one dose in 24 hours. mirtazapine 15 mg tablet 15 mg PO DAILY cholecalciferol (vitamin D3) 25 mcg (1,000 unit) capsule 25 mcg PO DAILY levothyroxine 25 mcg tablet 75 mcg PO DAILY aspirin 81 mg Tablet,Chewable 81 mg PO DAILY acetaminophen [Tylenol] 325 mg Tablet 325 - 650 mg PO Q4H PRN PRNQty: 0 0RF epinephrine [EpiPen 2-Wero] 0.3 mg/0.3 mL auto-injector 0.3 mg IM PRN PRN Patient Comments: USE DIRECTED albuterol sulfate 90 mcg/actuation Hfa Aerosol Inhaler 2 puff Inhalation PRN PRN Discharge Instructions Instructions: Upper Respiratory Infection ED Additional Instructions: Chest x-ray today did not reveal pneumonia. I suspect you have an upper respiratory tract infection with bronchitis. COVID and influenza testing are pending at time of discharge. You will be contacted should testing result positive. Please drink plenty of clear fluids to stay hydrated allow for plenty of rest. Please follow-up with your primary care physician. You can return to work on or after 11/05 if symptoms improved, and no fever for greater than 24 hours without treatment, wearing a mask until cough completely resolved. Return to the emergency department immediately for any worsening or new concerning symptoms. Stand Alone Forms: Portal Information HPI General Mode of arrival: ambulatory . Date/Time Provider Initiated Documentation: 10/31/25 07:27 . Limitations to Documentation: no limitations . Information obtained by: patient . HPI Narrative: 39-year-old female with history of pneumonia in the past, presenting with concerns for pneumonia. Patient reports productive cough over the past 1 week. She has associated shortness of breath, chills, sinus congestion and sore throat. She is producing sputum described as yellow in color. She has associated mild pleuritic chest discomfort. She notes poor appetite but has been drinking fluids. She has not received influenza or COVID-19 vaccines this year. 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 Related Data Home Medications ?Medication ?Instructions ?Recorded ?Confirmed albuterol sulfate 90 mcg/actuation 2 puff inhalation P RN PRN 03/18/19 10/31/25 aerosol inhaler aspirin 81 mg chewable tablet 81 mg PO DAILY 03/28/19 10/31/25 acetaminophen 325 mg tablet 325 - 650 mg (1 - 2 x 325 mg) PO 03/31/19 10/31/25 (Tylenol) Q4H PRN PRN #0 tabs epinephrine 0.3 mg/0.3 mL 0.3 mg IM PRN PRN 06/03/20 1 01/01/25 injection, auto-injector (EpiPen 2-Wero) cholecalciferol (vitamin D3) 25 25 mcg PO DAILY 10/31/25 mcg (1,000 unit) capsule mirtazapine 15 mg tablet 15 mg PO DAILY 08/26/2010/15 ferrous sulfate 325 mg (65 mg 325 mg PO DAILY 04/16/21 10/31/25 iron) tablet (FeroSul) levothyroxine 25 mcg tablet 75 mcg PO DAILY 09/03/22 1 01/01/25 galcanezumab-gnlm 120 mg/mL 120 mg subcut QMONTH #1 mL 06/25/25 10/31/25 subcutaneous pen injector (Emgality Pen) rimegepant 75 mg disintegrating 75 mg PO ONCE PRN migr sid 06/25/25 10/31/25 tablet (Nurtec ODT) headache #10 tabs Previous Rx's ?Medication ?Instructions ?Recorded acetaminophen 325 mg tablet 325 - 650 mg (1 - 2 x 325 mg) PO 03/31/19 (Tylenol) Q4H PRN PRN #0 tabs galcanezumab-gnlm 120 mg/mL 120 mg subcut QMONTH #1 mL 06/25/25 subcutaneous pen injector (Emgality Pen) rimegepant 75 mg disintegrating 75 mg PO ONCE PRN migr sid 06/25/25 tablet (Nurtec ODT) headache #10 tabs Allergies Allergy/AdvReac Type Severity Reaction Status Date / Time bee venom protein (honey bee) Allergy Severe Anaphylaxsi Verified 10/31/25 07:26 s oxycodone (From Percocet) Allergy Severe Anaphylaxsi Verified 10/31/25 07:26 s General Stated Complaint: RespSymp JULIÁN: 4 Review of Systems All systems reviewed & are unremarkable except as noted in HPI and below Constitutional Constitutional: Reports as per HPI Respiratory Respiratory: Reports as per HPI Exam Const General: cooperative and no acute distress HENMT Mouth: moist mucous membranes Eyes Conjunctivae: normal conjunctivae Sclera: normal sclerae Neck Neck: trachea midline Resp Effort & Inspection: normal respiratory effort, cough, not labored, no respiratory distress and not tachypneic Auscultation: rhonchi upper bilaterally Cardio Rate: regular rate and not tachycardic Rhythm: regular rhythm GI Palpation: soft, not firm, no guarding, no masses, not rigid and nontender Skin General skin exam: no rashes or lesions noted Neuro General: patient alert, patient awake, patient oriented x3 and tone normal Extrem General: no edema Course Vital Signs Vital signs: Vital Signs Temperature 36.8 C 10/31/25 07:22 Pulse 99 H 10/31/25 07:22 Respiratory Rate 12 10/31/25 07:22 Blood Pressure 119/86 10/31/25 07:22 Pulse Oximetry 99 10/31/25 07:22 Temperature 36.8 C 10/31/25 07:22 Temperature Source Oral 10/31/25 07:22 Pulse 99 H 10/31/25 07:22 Respiratory Rate 12 10/31/25 07:22 Respiratory Effort Normal, Non-Labored, Short of Breath 10/31/25 07:24 Respiratory Depth Normal 10/31/25 07:24 Blood Pressure 119/86 10/31/25 07:22 Blood Pressure Position Sitting 10/31/25 07:22 Pulse Oximetry 99 10/31/25 07:22 Oxygen Delivery Method Room Air 10/31/25 07:22 Oxygen Flow Rate 0 10/31/25 07:22 Medical Decision Making 39-year-old female here with productive cough, subjective chills, sinus congestion, sore throat. Patient mildly tachycardic on arrival. Normotensive. Saturating well in no respiratory distress. Concern for pneumonia versus viral URI. Chest x-ray reviewed and interpreted by radiology: No acute illness COVID and flu testing was performed: Pending at time of discharge Plan for supportive care. Recommended increase fluid intake to stay hydrated and allow for plenty of rest. Usual customary discharge instructions were reviewed. PFSH All Active Problems (Updated 10/31/25 @ 08:48 by Lan Alaniz MD) URI (upper respiratory infection) (Acute) Bilateral hand numbness (Acute) Cervicalgia (Acute) Mixed stress and urge urinary incontinence (Acute) Fatigue (Acute) Myelopathy (Acute) Generalized weakness (Acute) Status migrainosus (Acute) Functional gait abnormality (Chronic) Migraine headache without aura (Chronic) Chronic headache (Chronic) Cervical myelopathy (Acute) DVT prophylaxis (Acute) Paralysis of left lower extremity (Acute) Ambulatory dysfunction (Acute) Obesity, morbid, BMI 50 or higher (Chronic) Transaminitis (Chronic) Headache (Chronic) Vertigo (Chronic) Hypothyroid (Chronic) Depression (Chronic) PTSD (post-traumatic stress disorder) (Chronic) Medical History Degenerative disc disease, cervical Obstructive sleep apnea Periodic limb movement disorder ADHD History of neck pain Thyroid disease Paresthesia of arm Urinary incontinence Abnormal CT scan, chest BMI 45.0-49.9, adult Seasonal allergies Loose stools Ankle joint pain Fatty infiltration of liver Chest pain Epigastric pain determined by examination Abnormal liver enzymes Dyspepsia Amenorrhea, secondary BPPV (benign paroxysmal positional vertigo) Migraine Back pain Paralysis Herniated cervical disc Fever Cough Upper respiratory infection, acute Abnormal laboratory test Blood glucose elevated Hx of anaphylaxis Upper back pain Muscle weakness Mixed incontinence bowel and bladder Nephrolithiasis Surgical History S/P left knee surgery Amblyopia s/p surgery as a kid S/P bilateral breast reduction History of delivery X 3 Tubal ligation status Family History Father Thyroid disorder Cirrhosis Mother Cirrhosis Social History Smoking/Tobacco Use Status: Former Tobacco Use Smoking risk assessment performed?: Yes Alcohol Intake: never Drug use: Occasionally Substance use type: marijuana Household members: children and friend(s) Housing: apartment Number of Children: 3 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 Female Reproductive History Menstrual control method: permanent sterilization (BTL approx 4 years ago) History History 1 Para 1 Hx # Term Pregnancies Multiple births Hx # Pregnancies Ectopic pregnancies AB induced Hx Number of Living Children AB spontaneous
[2025-10-31 09:47] LABS: COVID-19 PCR Negative (Negative); RSV PCR Negative (Negative)
--- NOTE | 2025-10-31 10:23 | NUR.NOTE ---
Nursing Note: Contacted patient and let her know her FLUVID was negative.
== END 2025-10-31 08:57 | disposition home or self-care (01) ==
PROVIDERS: Emergency Provider Student in an Organized Health Care Education/Training Program; PCP Nurse Practitioner Family
DX: J06.9 Acute upper respiratory infection, unspecified (principal)
CPT/HCPCS: 87637; 99284; 71046; 99283

== ENCOUNTER → 2025-11-05 00:49 | Outpatient (CLI) | payer MEDICAID, SELFPAY ==
--- NOTE | 2025-11-05 | DI.MRI_ITS ---
Exam(s) MR LOWER JOINT LT WO EXAM: MR LOWER JOINT LT WO CLINICAL HISTORY: PAIN LT KNEE,M25.562,JOINT INSTABILITY,H/O LT KNEE SURGERY FOR BONE SPURS. TECHNIQUE: Multiplanar multisequence MRI was performed. COMPARISON: CR XR KNEE LT 3V AP,LAT,FAUSTINA from 08/10/2025 FINDINGS: BONES: There is no fracture or contusion pattern. JOINTS: Articular cartilage is unremarkable. No effusion is present. TENDONS: Extensor mechanism: Unremarkable. Medial retinaculum: Unremarkable. Lateral retinaculum: Unremarkable. Popliteus: Unremarkable. MUSCLES: Unremarkable. MENISCI: The medial meniscus is unremarkable. The lateral meniscus is unremarkable. SOFT TISSUES: Unremarkable. LIGAMENTS: Anterior Cruciate: Unremarkable. Posterior Cruciate: Unremarkable. Medial Collateral:Unremarkable. Lateral Collateral: Unremarkable. OTHER: IMPRESSION: There is no evidence of a meniscal or ligament tear. DATA REPOSITORY:
== END ==
PROVIDERS: PCP Nurse Practitioner Family; Visit Provider Family Medicine
DX: M25.562 Pain in left knee (principal)
CPT/HCPCS: 73721